=== PATIENT | female | born 1970 | race African-American/Black ===

== ENCOUNTER 2016-09-24 14:03 | Emergency (ER) | payer MEDICAID | END 2016-09-24 15:10 | disposition home or self-care (01) | LOC: D.ER 14:03 | DX: R53.1 Weakness (principal); F32.9 Major depressive disorder, single episode, unspecified; H40.9 Unspecified glaucoma; F17.200 Nicotine dependence, unspecified, uncomplicated ==

== ENCOUNTER 2017-06-29 00:11 | Emergency (ER) | payer MEDICAID ==
[2017-06-29 01:30] LABS: BASOPHILS 0.3 % (0-2); EOSINOPHILS 0.1 % (0-7); HEMATOCRIT 40.2 % (36.0-48.0); IMMATURE GRANULOCYTES 0.3 % (0-5); LYMPHOCYTES 18.5 % (15-50); MCH 28.7 pg (26.0-34.0); MCHC 34.8 g/dL (31.0-37.0); MCV 82.4 fL (80.0-100.0); MEAN PLATELET VOLUME 12.9 fL (7.4-10.4); MONOCYTES 7.5 % (2-11); NEUTROPHILS 73.3 % (40-80); PLATELET COUNT 158 10x3/uL (130-400); RBC 4.88 10x6/uL (4.00-5.40); RDW 14.1 % (11.5-14.5); WBC 7.6 10x3/uL (4.8-10.8)
[2017-06-29 01:52] LABS: ALBUMIN 3.2 g/dL (3.4-5.0); ALKALINE PHOSPHATASE 84 U/L (46-116); ALT (SGPT) 22 U/L (10-68); CALC OSMOLALITY 281 mosm/kg (275-300); CALCIUM 8.2 mg/dL (8.5-10.1); CARBON DIOXIDE 26.7 mmol/L (21.0-32.0); CHLORIDE - SERUM 106 mmol/L (98-107); CREATININE - SERUM 0.8 mg/dL (0.6-1.3); GLUCOSE 102 mg/dL (74-106); POTASSIUM - SERUM 3.2 mmol/L (3.5-5.1); PROTEIN - SERUM 7.2 g/dL (6.4-8.2); SODIUM 141 mmol/L (136-145); UREA NITROGEN 14 mg/dL (7-18); eGFR NON AFRICAN AMERICAN 82 mL/min (90-120)
[2017-06-29 01:52] LABS: APPEARANCE CLEAR (CLEAR); BILIRUBIN NEGATIVE (NEGATIVE); COLOR YELLOW (YELLOW); GLUCOSE NEGATIVE (NEGATIVE); KETONE NEGATIVE (NEGATIVE); NITRITE NEGATIVE (NEGATIVE); PROTEIN NEGATIVE (NEGATIVE); UROBILINOGEN NORMAL (NORMAL)
[2017-06-29 02:02] LABS: BACTERIA FEW /hpf (NONE SEEN); EPITHELIAL CELLS 0-5 /hpf (0-5); RED CELLS - URINE 0-5 /hpf (0-5); WHITE CELLS - URINE 0-5 /hpf (0-5)
[2017-06-29 02:05] LABS: CKMB 0.2 U/L (0.0-3.6); CREATINE KINASE 42 UL (21-215); MAGNESIUM - SERUM 1.7 mg/dL (1.8-2.4); TROPONIN-I < 0.017 ng/mL (0.000-0.060)
== END 2017-06-29 02:48 | disposition home or self-care (01) ==
LOC: D.ER 00:11
PROVIDERS: Family Medicine
DX: R42 Dizziness and giddiness (principal); E83.42 Hypomagnesemia; E87.6 Hypokalemia

== ENCOUNTER 2017-07-05 02:49 | Emergency (ER) | payer MEDICAID ==
[2017-07-05 03:31] LABS: BASOPHILS 0.1 % (0-2); EOSINOPHILS 0.1 % (0-7); HEMATOCRIT 40.9 % (36.0-48.0); HEMOGLOBIN 14.5 g/dL (12-16); IMMATURE GRANULOCYTES 0.3 % (0-5); LYMPHOCYTES 15.6 % (15-50); MCH 29.1 pg (26.0-34.0); MCHC 35.5 g/dL (31.0-37.0); MONOCYTES 6.5 % (2-11); NEUTROPHILS 77.4 % (40-80); PLATELET COUNT 179 10x3/uL (130-400); RBC 4.99 10x6/uL (4.00-5.40); RDW 14.4 % (11.5-14.5); WBC 7.3 10x3/uL (4.8-10.8)
[2017-07-05 03:39] LABS: ALBUMIN 3.2 g/dL (3.4-5.0); ALKALINE PHOSPHATASE 83 U/L (46-116); ALT (SGPT) 34 U/L (10-68); BILIRUBIN - TOTAL 0.22 mg/dL (0.2-1.3); CALC OSMOLALITY 276 mosm/kg (275-300); CALCIUM 8.2 mg/dL (8.5-10.1); CHLORIDE - SERUM 103 mmol/L (98-107); CREATININE - SERUM 0.7 mg/dL (0.6-1.3); GLUCOSE 107 mg/dL (74-106); POTASSIUM - SERUM 3.5 mmol/L (3.5-5.1); PROTEIN - SERUM 7.5 g/dL (6.4-8.2); SODIUM 140 mmol/L (136-145); UREA NITROGEN 7 mg/dL (7-18); eGFR NON AFRICAN AMERICAN > 90 mL/min (90-120)
[2017-07-05 03:41] LABS: MAGNESIUM - SERUM 1.9 mg/dL (1.8-2.4); PHENYTOIN (DILANTIN) 22.2 ug/mL (10.0-20.0)
== END 2017-07-05 04:40 | disposition home or self-care (01) ==
LOC: D.ER 02:49
PROVIDERS: Family Medicine
DX: T50.905A Adverse effect of unspecified drugs, medicaments and biological substances, initial encounter (principal); Y92.019 Unspecified place in single-family (private) house as the place of occurrence of the external cause; R42 Dizziness and giddiness; H40.9 Unspecified glaucoma; G40.909 Epilepsy, unspecified, not intractable, without status epilepticus; F17.200 Nicotine dependence, unspecified, uncomplicated

== ENCOUNTER 2018-02-24 21:15 | Emergency (ER) | payer MEDICAID ==
[~2018-02-24] VITALS: Ht 167.6 cm; Wt 49.9 kg
[2018-02-24 21:32] VITALS: Ht 167.6 cm; Wt 49.9 kg
[2018-02-24] MEDS ORDERED: DILANTIN100 MG PO (21:34)
[2018-02-24] MEDS ORDERED: ZONEGRAN100 MG PO (21:34)
[2018-02-24] MEDS ORDERED: TRILEPTAL600 MG PO (21:34)
[2018-02-24 21:57] LABS: BASOPHILS 0.5 % (0-2); EOSINOPHILS 0.5 % (0-7); HEMATOCRIT 40.9 % (36.0-48.0); HEMOGLOBIN 14.3 g/dL (12-16); IMMATURE GRANULOCYTES 0.2 % (0-5); LYMPHOCYTES 19.8 % (15-50); MCH 29.5 pg (26.0-34.0); MCV 84.5 fL (80.0-100.0); MONOCYTES 6.6 % (2-11); NEUTROPHILS 72.4 % (40-80); PLATELET COUNT 150 10x3/uL (130-400); RBC 4.84 10x6/uL (4.00-5.40); RDW 14.7 % (11.5-14.5); WBC 6.5 10x3/uL (4.8-10.8)
[2018-02-24 22:10] LABS: HCG SERUM NEGATIVE (NEGATIVE)
[2018-02-24 22:21] LABS: APPEARANCE CLEAR (CLEAR); BILIRUBIN NEGATIVE (NEGATIVE); COLOR YELLOW (YELLOW); GLUCOSE NEGATIVE (NEGATIVE); KETONE SMALL mg/dL (NEGATIVE); NITRITE NEGATIVE (NEGATIVE); PROTEIN NEGATIVE (NEGATIVE); SPECIFIC GRAVITY 1.025 (1.005-1.020); UROBILINOGEN NORMAL (NORMAL)
[2018-02-24 22:22] LABS: CALC OSMOLALITY 275 mosm/kg (275-300); CALCIUM 8.9 mg/dL (8.5-10.1); CARBON DIOXIDE 25.1 mmol/L (21.0-32.0); CHLORIDE - SERUM 100 mmol/L (98-107); CREATININE - SERUM 0.8 mg/dL (0.6-1.3); EPITHELIAL CELLS 0-5 /hpf (0-5); GLUCOSE 86 mg/dL (74-106); RED CELLS - URINE 0-5 /hpf (0-5); SODIUM 138 mmol/L (136-145); THYROID STIMULATING HORMONE 2.14 uIU/mL (0.36-3.74); UDS - AMPHET NEGATIVE QUAL (NEGATIVE); UDS - BARB NEGATIVE QUAL (NEGATIVE); UDS - BENZO NEGATIVE QUAL (NEGATIVE); UDS - COCAINE NEGATIVE QUAL (NEGATIVE); UDS - OPIATE NEGATIVE QUAL (NEGATIVE); UDS - PCP NEGATIVE QUAL (NEGATIVE); UDS - THC NEGATIVE QUAL (NEGATIVE); UREA NITROGEN 14 mg/dL (7-18); WHITE CELLS - URINE OCC /hpf (0-5); eGFR NON AFRICAN AMERICAN 82 mL/min (90-120)
[2018-02-24 23:10] VITALS: BP 135/80
== END 2018-02-24 23:09 | disposition home or self-care (01) ==
LOC: D.ER 21:15
PROVIDERS: Family Medicine
DX: F41.9 Anxiety disorder, unspecified (principal); E87.6 Hypokalemia; G40.909 Epilepsy, unspecified, not intractable, without status epilepticus

== ENCOUNTER 2018-04-02 20:44 | Emergency (ER) | payer MEDICAID ==
[~2018-04-02] VITALS: Ht 167.6 cm; Wt 55.0 kg
[~2018-04-02 20:44] MED LIST: DILANTIN100 MG PO; TRILEPTAL600 MG PO; ZONEGRAN100 MG PO
[2018-04-02 20:47] VITALS: Ht 167.6 cm; Wt 55.0 kg
[2018-04-02 21:14] LABS: BASOPHILS 0.3 % (0-2); EOSINOPHILS 1.5 % (0-7); HEMOGLOBIN 13.9 g/dL (12-16); IMMATURE GRANULOCYTES 0.2 % (0-5); LYMPHOCYTES 25.9 % (15-50); MCH 29.5 pg (26.0-34.0); MCHC 34.8 g/dL (31.0-37.0); MCV 84.9 fL (80.0-100.0); MEAN PLATELET VOLUME 12.9 fL (7.4-10.4); MONOCYTES 6.3 % (2-11); NEUTROPHILS 65.8 % (40-80); RBC 4.71 10x6/uL (4.00-5.40); WBC 6.6 10x3/uL (4.8-10.8)
[2018-04-02 21:31] LABS: ALBUMIN 3.5 g/dL (3.4-5.0); ALKALINE PHOSPHATASE 80 U/L (46-116); ALT (SGPT) 30 U/L (10-68); BILIRUBIN - TOTAL 0.16 mg/dL (0.2-1.3); CALC OSMOLALITY 277 mosm/kg (275-300); CALCIUM 8.5 mg/dL (8.5-10.1); CARBON DIOXIDE 23.8 mmol/L (21.0-32.0); CHLORIDE - SERUM 105 mmol/L (98-107); CREATININE - SERUM 0.8 mg/dL (0.6-1.3); GLUCOSE 91 mg/dL (74-106); POTASSIUM - SERUM 3.6 mmol/L (3.5-5.1); PROTEIN - SERUM 7.4 g/dL (6.4-8.2); SODIUM 140 mmol/L (136-145); UREA NITROGEN 9 mg/dL (7-18); eGFR NON AFRICAN AMERICAN 82 mL/min (90-120)
[2018-04-02 21:33] LABS: PLATELET COUNT 155 10x3/uL (130-400)
[2018-04-02 21:38] LABS: PROTIME 12.9 SECONDS (11.6-15.0)
[2018-04-02 21:39] LABS: APTT 22.9 SECONDS (22.8-39.4); INR 0.98 (0.85-1.17)
[2018-04-02 21:43] LABS: CKMB 0.8 U/L (0.0-3.6); CREATINE KINASE 47 UL (21-215); MAGNESIUM - SERUM 2.1 mg/dL (1.8-2.4); TROPONIN-I < 0.017 ng/mL (0.000-0.060)
[2018-04-02 22:48] LABS: APPEARANCE CLEAR (CLEAR); BILIRUBIN NEGATIVE (NEGATIVE); COLOR YELLOW (YELLOW); GLUCOSE NEGATIVE (NEGATIVE); KETONE NEGATIVE (NEGATIVE); NITRITE NEGATIVE (NEGATIVE); PROTEIN NEGATIVE (NEGATIVE); SPECIFIC GRAVITY 1.015 (1.005-1.020); UROBILINOGEN NORMAL (NORMAL)
[2018-04-02 22:59] LABS: UDS - AMPHET NEGATIVE QUAL (NEGATIVE); UDS - BARB NEGATIVE QUAL (NEGATIVE); UDS - BENZO NEGATIVE QUAL (NEGATIVE); UDS - COCAINE NEGATIVE QUAL (NEGATIVE); UDS - OPIATE NEGATIVE QUAL (NEGATIVE); UDS - PCP NEGATIVE QUAL (NEGATIVE); UDS - THC NEGATIVE QUAL (NEGATIVE)
[2018-04-02 23:05] VITALS: BP 140/85
== END 2018-04-02 23:05 | disposition home or self-care (01) ==
LOC: D.ER 20:44
PROVIDERS: Family Medicine
DX: R07.89 Other chest pain (principal); G40.909 Epilepsy, unspecified, not intractable, without status epilepticus

== ENCOUNTER 2018-05-09 11:16 | Emergency (ER) | payer MEDICAID ==
[~2018-05-09] VITALS: Ht 167.6 cm; Wt 55.5 kg
[2018-05-09 11:22] VITALS: Ht 167.6 cm; Wt 55.5 kg
[2018-05-09 14:40] LABS: BASOPHILS 0.4 % (0-2); EOSINOPHILS 1.1 % (0-7); HEMATOCRIT 44.1 % (36.0-48.0); HEMOGLOBIN 15.4 g/dL (12-16); IMMATURE GRANULOCYTES 0.3 % (0-5); LYMPHOCYTES 25.9 % (15-50); MCH 28.7 pg (26.0-34.0); MCHC 34.9 g/dL (31.0-37.0); MCV 82.3 fL (80.0-100.0); MONOCYTES 8.1 % (2-11); NEUTROPHILS 64.2 % (40-80); PLATELET COUNT 151 10x3/uL (130-400); RBC 5.36 10x6/uL (4.00-5.40); RDW 13.7 % (11.5-14.5); WBC 7.5 10x3/uL (4.8-10.8)
[2018-05-09] MEDS ORDERED: TEGRETOL200 MG PO (15:16)
[2018-05-09 15:56] LABS: ALBUMIN 3.6 g/dL (3.4-5.0); ALKALINE PHOSPHATASE 80 U/L (46-116); ALT (SGPT) 41 U/L (10-68); BILIRUBIN - TOTAL 0.23 mg/dL (0.2-1.3); CALC OSMOLALITY 260 mosm/kg (275-300); CALCIUM 8.1 mg/dL (8.5-10.1); CARBAMAZEPINE (TEGRETOL) 0.2 ug/mL (4.0-12.0); CARBON DIOXIDE 28.1 mmol/L (21.0-32.0); CHLORIDE - SERUM 99 mmol/L (98-107); CREATININE - SERUM 0.8 mg/dL (0.6-1.3); GLUCOSE 81 mg/dL (74-106); PHENYTOIN (DILANTIN) 26.4 ug/mL (10.0-20.0); PROTEIN - SERUM 7.3 g/dL (6.4-8.2); SODIUM 131 mmol/L (136-145); TROPONIN-I < 0.017 ng/mL (0.000-0.060); UREA NITROGEN 10 mg/dL (7-18); eGFR NON AFRICAN AMERICAN 82 mL/min (90-120)
[2018-05-09 18:13] VITALS: BP 141/93
== END 2018-05-09 17:57 | disposition home or self-care (01) ==
LOC: D.ER 11:16
PROVIDERS: Emergency Medicine
DX: R07.9 Chest pain, unspecified (principal); R42 Dizziness and giddiness; G40.909 Epilepsy, unspecified, not intractable, without status epilepticus; E87.6 Hypokalemia; E87.1 Hypo-osmolality and hyponatremia; E16.2 Hypoglycemia, unspecified; T42.0X6A Underdosing of hydantoin derivatives, initial encounter; Z91.138 Patient's unintentional underdosing of medication regimen for other reason; Y92.019 Unspecified place in single-family (private) house as the place of occurrence of the external cause

== ENCOUNTER 2018-05-11 23:15 | Emergency (ER) | payer MEDICAID ==
[~2018-05-11] VITALS: Ht 167.6 cm; Wt 59.1 kg
[~2018-05-11 23:15] MED LIST changes: +TEGRETOL200 MG PO
[2018-05-11 23:17] VITALS: Ht 167.6 cm; Wt 59.1 kg
[2018-05-12 00:56] LABS: HEMOGLOBIN 13.4 g/dL (12-16); LYMPHOCYTES 17.3 % (15-50); MCH 28.5 pg (26.0-34.0); MCHC 34.4 g/dL (31.0-37.0); MCV 82.8 fL (80.0-100.0); MEAN PLATELET VOLUME 12.9 fL (7.4-10.4); NEUTROPHILS 79.4 % (40-80); PLATELET COUNT 119 10x3/uL (130-400); RBC 4.71 10x6/uL (4.00-5.40); RDW 14.4 % (11.5-14.5); WBC 8.5 10x3/uL (4.8-10.8)
[2018-05-12 00:59] LABS: ALBUMIN 3.5 g/dL (3.4-5.0); ANION GAP 16.1 mmol/L (8-16); BILIRUBIN - TOTAL 0.15 mg/dL (0.2-1.3); CARBON DIOXIDE 24.6 mmol/L (21.0-32.0); CREATININE - SERUM 0.9 mg/dL (0.6-1.3); POTASSIUM - SERUM 3.7 mmol/L (3.5-5.1); PROTEIN - SERUM 7.6 g/dL (6.4-8.2)
[2018-05-12 01:09] LABS: APPEARANCE CLEAR (CLEAR); BILIRUBIN NEGATIVE (NEGATIVE); COLOR YELLOW (YELLOW); GLUCOSE NEGATIVE (NEGATIVE); KETONE NEGATIVE (NEGATIVE); NITRITE NEGATIVE (NEGATIVE); PROTEIN NEGATIVE (NEGATIVE); SPECIFIC GRAVITY 1.005 (1.005-1.020); UROBILINOGEN NORMAL (NORMAL)
[2018-05-12 01:10] LABS: BACTERIA FEW /hpf (NONE SEEN); EPITHELIAL CELLS 0-5 /hpf (0-5); RED CELLS - URINE 0-5 /hpf (0-5); WHITE CELLS - URINE 0-5 /hpf (0-5)
[2018-05-12] MEDS ORDERED: MECLIZINE HCL25 MG PO (02:09)
[2018-05-12] MEDS ORDERED: CYCLOBENZAPRINE10 MG PO (02:09)
[2018-05-12 02:43] VITALS: BP 130/83
== END 2018-05-12 02:43 | disposition home or self-care (01) ==
LOC: D.ER 23:15
PROVIDERS: Family Medicine
DX: R42 Dizziness and giddiness (principal); M62.838 Other muscle spasm; Z91.14 Patient's other noncompliance with medication regimen; G35 Multiple sclerosis; G40.909 Epilepsy, unspecified, not intractable, without status epilepticus

== ENCOUNTER 2018-05-27 00:22 | Emergency (ER) | payer MEDICAID ==
[~2018-05-27] VITALS: Ht 167.6 cm; Wt 65.9 kg
[~2018-05-27 00:22] MED LIST changes: +CYCLOBENZAPRINE10 MG PO; +MECLIZINE HCL25 MG PO
[2018-05-27 00:26] VITALS: Ht 167.6 cm; Wt 65.9 kg
[2018-05-27 01:03] LABS: HEMATOCRIT 39.2 % (36.0-48.0); HEMOGLOBIN 13.3 g/dL (12-16); LYMPHOCYTES 17.2 % (15-50); MCH 28.7 pg (26.0-34.0); MCHC 33.9 g/dL (31.0-37.0); MCV 84.5 fL (80.0-100.0); MEAN PLATELET VOLUME 12.3 fL (7.4-10.4); NEUTROPHILS 77.2 % (40-80); PLATELET COUNT 166 10x3/uL (130-400); RBC 4.64 10x6/uL (4.00-5.40); RDW 14.8 % (11.5-14.5)
[2018-05-27 01:18] LABS: ALKALINE PHOSPHATASE 83 U/L (46-116); ALT (SGPT) 69 U/L (10-68); BILIRUBIN - TOTAL 0.11 mg/dL (0.2-1.3); CALC OSMOLALITY 279 mosm/kg (275-300); CARBON DIOXIDE 24.7 mmol/L (21.0-32.0); CHLORIDE - SERUM 106 mmol/L (98-107); CREATINE KINASE 57 UL (21-215); CREATININE - SERUM 0.8 mg/dL (0.6-1.3); GLUCOSE 87 mg/dL (74-106); POTASSIUM - SERUM 3.7 mmol/L (3.5-5.1); SODIUM 142 mmol/L (136-145); UREA NITROGEN 8 mg/dL (7-18); eGFR NON AFRICAN AMERICAN 82 mL/min (90-120)
[2018-05-27 01:41] LABS: APPEARANCE CLEAR (CLEAR); BILIRUBIN NEGATIVE (NEGATIVE); COLOR YELLOW (YELLOW); GLUCOSE NEGATIVE (NEGATIVE); HCG URINE NEGATIVE (NEGATIVE); KETONE NEGATIVE (NEGATIVE); NITRITE NEGATIVE (NEGATIVE); PROTEIN NEGATIVE (NEGATIVE); UROBILINOGEN NORMAL (NORMAL)
[2018-05-27 01:50] LABS: UDS - AMPHET NEGATIVE QUAL (NEGATIVE); UDS - BARB NEGATIVE QUAL (NEGATIVE); UDS - BENZO NEGATIVE QUAL (NEGATIVE); UDS - COCAINE NEGATIVE QUAL (NEGATIVE); UDS - OPIATE NEGATIVE QUAL (NEGATIVE); UDS - PCP NEGATIVE QUAL (NEGATIVE); UDS - THC NEGATIVE QUAL (NEGATIVE)
[2018-05-27] MEDS ORDERED: DILANTIN100 MG PO (02:18)
[2018-05-27] MEDS ORDERED: TRILEPTAL600 MG PO (02:18)
[2018-05-27 03:14] VITALS: BP 132/76
== END 2018-05-27 03:14 | disposition home or self-care (01) ==
LOC: D.ER 00:22
PROVIDERS: Family Medicine
DX: G40.909 Epilepsy, unspecified, not intractable, without status epilepticus (principal)

== ENCOUNTER 2018-07-03 00:17 | Emergency (ER) | payer MEDICAID ==
[2018-07-03] MEDS ORDERED: VITAMIN D3400 UNI1 PO (00:26)
[2018-07-03 01:01] LABS: BASOPHILS 0.2 % (0-2); EOSINOPHILS 2.7 % (0-7); HEMATOCRIT 36.6 % (36.0-48.0); HEMOGLOBIN 12.6 g/dL (12-16); IMMATURE GRANULOCYTES 0.3 % (0-5); LYMPHOCYTES 19.2 % (15-50); MCH 28.4 pg (26.0-34.0); MCHC 34.4 g/dL (31.0-37.0); MCV 82.6 fL (80.0-100.0); MEAN PLATELET VOLUME 11.7 fL (7.4-10.4); MONOCYTES 7.5 % (2-11); NEUTROPHILS 70.1 % (40-80); PLATELET COUNT 143 10x3/uL (130-400); RBC 4.43 10x6/uL (4.00-5.40); RDW 15.7 % (11.5-14.5); WBC 5.9 10x3/uL (4.8-10.8)
[2018-07-03 01:06] LABS: ALBUMIN 3.1 g/dL (3.4-5.0); ALKALINE PHOSPHATASE 81 U/L (46-116); ALT (SGPT) 41 U/L (10-68); CALC OSMOLALITY 276 mosm/kg (275-300); CALCIUM 8.2 mg/dL (8.5-10.1); CARBON DIOXIDE 24.2 mmol/L (21.0-32.0); CHLORIDE - SERUM 106 mmol/L (98-107); CREATININE - SERUM 0.8 mg/dL (0.6-1.3); GLUCOSE 100 mg/dL (74-106); MAGNESIUM - SERUM 1.8 mg/dL (1.8-2.4); PHENYTOIN (DILANTIN) 14.4 ug/mL (10.0-20.0); POTASSIUM - SERUM 3.5 mmol/L (3.5-5.1); SODIUM 139 mmol/L (136-145); UREA NITROGEN 10 mg/dL (7-18); eGFR NON AFRICAN AMERICAN 82 mL/min (90-120)
== END 2018-07-03 02:55 | disposition home or self-care (01) ==
LOC: D.ER 00:17
PROVIDERS: Emergency Medicine
DX: G40.909 Epilepsy, unspecified, not intractable, without status epilepticus (principal)

== ENCOUNTER 2018-07-29 23:59 | Emergency (ER) | payer MEDICAID ==
[~2018-07-29 23:59] MED LIST changes: +VITAMIN D3400 UNI1 PO
[2018-07-30 00:01] VITALS: BMI 19.4
[2018-07-30] MEDS ORDERED: K-DUR20 MEQ PO (00:02)
[2018-07-30] MEDS ORDERED: PROPRANOLOL HCL20 MG PO (00:02)
[2018-07-30] MEDS ORDERED: FERROUS SULFAT325 MG PO (00:02)
[2018-07-30] MEDS ORDERED: MECLIZINE HCL25 MG PO (00:03)
[2018-07-30 00:16] LABS: BASOPHILS 0.4 % (0-2); EOSINOPHILS 3.4 % (0-7); HEMATOCRIT 39.9 % (36.0-48.0); HEMOGLOBIN 13.8 g/dL (12-16); IMMATURE GRANULOCYTES 0.4 % (0-5); LYMPHOCYTES 19.3 % (15-50); MCH 28.9 pg (26.0-34.0); MCHC 34.6 g/dL (31.0-37.0); MCV 83.5 fL (80.0-100.0); MONOCYTES 6.9 % (2-11); NEUTROPHILS 69.6 % (40-80); RBC 4.78 10x6/uL (4.00-5.40); RDW 14.5 % (11.5-14.5); WBC 5.3 10x3/uL (4.8-10.8)
[2018-07-30 00:17] LABS: PLATELET COUNT 102 10x3/uL (130-400)
[2018-07-30 00:33] LABS: ALBUMIN 3.4 g/dL (3.4-5.0); ANION GAP 17.8 mmol/L (8-16); BILIRUBIN - TOTAL 0.12 mg/dL (0.2-1.3); CALCIUM 8.2 mg/dL (8.5-10.1); CARBON DIOXIDE 20.6 mmol/L (21.0-32.0); CREATININE - SERUM 0.9 mg/dL (0.6-1.3); POTASSIUM - SERUM 3.4 mmol/L (3.5-5.1); PROTEIN - SERUM 7.5 g/dL (6.4-8.2)
[2018-07-30 00:46] LABS: PHENYTOIN (DILANTIN) 23.2 ug/mL (10.0-20.0)
[2018-07-30 03:00] VITALS: BP 142/87
== END 2018-07-30 03:00 | disposition home or self-care (01) ==
LOC: D.ER 23:59
PROVIDERS: Family Medicine
DX: G40.909 Epilepsy, unspecified, not intractable, without status epilepticus (principal)

== ENCOUNTER 2018-12-22 23:32 | Emergency (ER) | payer MEDICAID ==
[~2018-12-22] VITALS: Ht 167.6 cm; Wt 49.9 kg
[~2018-12-22 23:32] MED LIST changes: +FERROUS SULFAT325 MG PO; +K-DUR20 MEQ PO; +PROPRANOLOL HCL20 MG PO
[2018-12-22 23:38] VITALS: Ht 167.6 cm; Wt 49.9 kg
[2018-12-22 23:56] LABS: HEMATOCRIT 42.3 % (36.0-48.0); HEMOGLOBIN 14.6 g/dL (12-16); LYMPHOCYTES 19.2 % (15-50); MCH 29.2 pg (26.0-34.0); MCHC 34.5 g/dL (31.0-37.0); MCV 84.6 fL (80.0-100.0); MEAN PLATELET VOLUME 12.9 fL (7.4-10.4); NEUTROPHILS 72.7 % (40-80); RDW 14.3 % (11.5-14.5); WBC 6.3 10x3/uL (4.8-10.8)
[2018-12-22 23:57] LABS: PLATELET COUNT 144 10x3/uL (130-400)
[2018-12-23 00:17] LABS: BILIRUBIN - TOTAL 0.21 mg/dL (0.2-1.3); CALCIUM 8.7 mg/dL (8.5-10.1); CARBON DIOXIDE 29.7 mmol/L (21.0-32.0); CREATININE - SERUM 0.9 mg/dL (0.6-1.3); POTASSIUM - SERUM 3.7 mmol/L (3.5-5.1); PROTEIN - SERUM 8.4 g/dL (6.4-8.2)
[2018-12-23 00:35] LABS: UDS - AMPHET NEGATIVE QUAL (NEGATIVE); UDS - BARB NEGATIVE QUAL (NEGATIVE); UDS - BENZO NEGATIVE QUAL (NEGATIVE); UDS - COCAINE NEGATIVE QUAL (NEGATIVE); UDS - OPIATE NEGATIVE QUAL (NEGATIVE); UDS - PCP NEGATIVE QUAL (NEGATIVE); UDS - THC NEGATIVE QUAL (NEGATIVE)
[2018-12-23 00:39] LABS: APPEARANCE CLOUDY (CLEAR); COLOR YELLOW (YELLOW)
[2018-12-23 00:40] LABS: BILIRUBIN NEGATIVE (NEGATIVE); GLUCOSE NEGATIVE (NEGATIVE); KETONE NEGATIVE (NEGATIVE); NITRITE NEGATIVE (NEGATIVE); PROTEIN 1+ mg/dL (NEGATIVE); UROBILINOGEN NORMAL (NORMAL)
[2018-12-23 00:48] LABS: EPITHELIAL CELLS 0-5 /hpf (0-5); RED CELLS - URINE 0-5 /hpf (0-5); WHITE CELLS - URINE 0-5 /hpf (NEGATIVE)
[2018-12-23 00:49] LABS: AMORPHOUS SEDIMENT <1+ /lpf (NONE SEEN); BACTERIA FEW /hpf (NEGATIVE); MUCUS <1+ /lpf (NONE SEEN); TALC POWDER CRYSTALS 0-5 /hpf (NONE SEEN)
[2018-12-23 01:30] VITALS: BP 151/89
== END 2018-12-23 01:30 | disposition home or self-care (01) ==
LOC: D.ER 23:32
PROVIDERS: Family Medicine
DX: F22 Delusional disorders (principal)

== ENCOUNTER 2018-12-24 14:21 | Emergency (ER) | payer MEDICAID ==
[~2018-12-24] VITALS: Ht 167.6 cm; Wt 47.7 kg
[2018-12-24 14:28] VITALS: Ht 167.6 cm; Wt 47.7 kg
[2018-12-24 15:32] LABS: BASOPHILS 0.3 % (0-2); EOSINOPHILS 0.9 % (0-7); HEMATOCRIT 45.5 % (36.0-48.0); HEMOGLOBIN 15.6 g/dL (12-16); IMMATURE GRANULOCYTES 0.1 % (0-5); LYMPHOCYTES 10.7 % (15-50); MCH 29.2 pg (26.0-34.0); MCHC 34.3 g/dL (31.0-37.0); MCV 85.2 fL (80.0-100.0); MONOCYTES 5.4 % (2-11); NEUTROPHILS 82.6 % (40-80); PLATELET COUNT 121 10x3/uL (130-400); RBC 5.34 10x6/uL (4.00-5.40); RDW 13.9 % (11.5-14.5); WBC 7.8 10x3/uL (4.8-10.8)
[2018-12-24 15:41] LABS: APTT 23.3 SECONDS (22.8-39.4); INR 0.91 (0.85-1.17); PROTIME 11.8 SECONDS (11.6-15.0)
[2018-12-24 16:43] LABS: APPEARANCE CLEAR (CLEAR); BILIRUBIN NEGATIVE (NEGATIVE); COLOR YELLOW (YELLOW); GLUCOSE NEGATIVE (NEGATIVE); KETONE NEGATIVE (NEGATIVE); NITRITE NEGATIVE (NEGATIVE); PROTEIN NEGATIVE (NEGATIVE); SPECIFIC GRAVITY 1.015 (1.005-1.020); UROBILINOGEN NORMAL (NORMAL)
[2018-12-24 16:45] LABS: BACTERIA FEW /hpf (NEGATIVE); RED CELLS - URINE RARE /hpf (0-5); WHITE CELLS - URINE OCC /hpf (NEGATIVE)
[2018-12-24 16:50] LABS: ALBUMIN 4.3 g/dL (3.4-5.0); ALKALINE PHOSPHATASE 105 U/L (46-116); ALT (SGPT) 28 U/L (10-68); BILIRUBIN - TOTAL 0.23 mg/dL (0.2-1.3); CALCIUM 9.1 mg/dL (8.5-10.1); CARBON DIOXIDE 29.2 mmol/L (21.0-32.0); CHLORIDE - SERUM 104 mmol/L (98-107); CREATININE - SERUM 0.8 mg/dL (0.6-1.3); POTASSIUM - SERUM 3.3 mmol/L (3.5-5.1); PROTEIN - SERUM 8.6 g/dL (6.4-8.2); SODIUM 144 mmol/L (136-145); eGFR NON AFRICAN AMERICAN 82 mL/min (90-120)
[2018-12-24 16:53] LABS: CALC OSMOLALITY 283 mosm/kg (275-300); GLUCOSE 85 mg/dL (74-106); UREA NITROGEN 7 mg/dL (7-18)
[2018-12-24 17:02] LABS: CKMB 0.4 U/L (0.0-3.6); CREATINE KINASE 83 UL (21-215); MAGNESIUM - SERUM 2.1 mg/dL (1.8-2.4); THYROID STIMULATING HORMONE 1.23 uIU/mL (0.36-3.74); TROPONIN-I < 0.017 ng/mL (0.000-0.060)
[2018-12-24 17:06] LABS: UDS - AMPHET NEGATIVE QUAL (NEGATIVE); UDS - BARB NEGATIVE QUAL (NEGATIVE); UDS - BENZO NEGATIVE QUAL (NEGATIVE); UDS - COCAINE NEGATIVE QUAL (NEGATIVE); UDS - OPIATE NEGATIVE QUAL (NEGATIVE); UDS - PCP NEGATIVE QUAL (NEGATIVE); UDS - THC NEGATIVE QUAL (NEGATIVE)
[2018-12-24 20:28] VITALS: BP 135/78
== END 2018-12-24 20:28 | disposition home or self-care (01) ==
LOC: D.ER 14:21
PROVIDERS: Family Medicine
DX: R41.82 Altered mental status, unspecified (principal); I10 Essential (primary) hypertension; N19 Unspecified kidney failure

== ENCOUNTER 2018-12-25 02:59 | Inpatient (IN) | payer MEDICAID ==
[~2018-12-25] VITALS: Ht 167.6 cm; Wt 70.5 kg
[2018-12-25] VITALS (9 sets, daily range): BP systolic 136–171; BP diastolic 72–102; Ht 167.6 cm; Wt 70.5 kg
[2018-12-25 03:20] LABS: BASOPHILS 0.1 % (0-2); EOSINOPHILS 0.2 % (0-7); HEMATOCRIT 44.1 % (36.0-48.0); HEMOGLOBIN 15.3 g/dL (12-16); IMMATURE GRANULOCYTES 0.2 % (0-5); LYMPHOCYTES 6.9 % (15-50); MCH 29.5 pg (26.0-34.0); MCHC 34.7 g/dL (31.0-37.0); MONOCYTES 5.5 % (2-11); NEUTROPHILS 87.1 % (40-80); RBC 5.19 10x6/uL (4.00-5.40); RDW 13.5 % (11.5-14.5)
[2018-12-25 03:21] LABS: PLATELET COUNT 149 10x3/uL (130-400); WBC 10.2 10x3/uL (4.8-10.8)
--- NOTE | 2018-12-25 03:35 | NUR ---
PT ASSISTED WITH BEDPAN. URINE SPECIMEN TAKEN TO LAB.
[2018-12-25 03:41] LABS: ALBUMIN 4.1 g/dL (3.4-5.0); ANION GAP 13.6 mmol/L (8-16); BILIRUBIN - TOTAL 0.23 mg/dL (0.2-1.3); CALCIUM 8.3 mg/dL (8.5-10.1); CARBON DIOXIDE 25.9 mmol/L (21.0-32.0); CREATININE - SERUM 0.9 mg/dL (0.6-1.3); POTASSIUM - SERUM 3.5 mmol/L (3.5-5.1); PROTEIN - SERUM 8.3 g/dL (6.4-8.2)
[2018-12-25 03:42] LABS: MAGNESIUM - SERUM 2.1 mg/dL (1.8-2.4); PHENYTOIN (DILANTIN) 32.3 ug/mL (10.0-20.0); THYROID STIMULATING HORMONE 1.91 uIU/mL (0.36-3.74)
[2018-12-25 03:58] LABS: APPEARANCE CLEAR (CLEAR); BILIRUBIN NEGATIVE (NEGATIVE); COLOR YELLOW (YELLOW); GLUCOSE NEGATIVE (NEGATIVE); KETONE NEGATIVE (NEGATIVE); NITRITE NEGATIVE (NEGATIVE); PROTEIN NEGATIVE (NEGATIVE); SPECIFIC GRAVITY 1.005 (1.005-1.020); UROBILINOGEN NORMAL (NORMAL); WHITE CELLS - URINE 0-5 /hpf (NEGATIVE)
[2018-12-25 04:06] LABS: UDS - AMPHET NEGATIVE QUAL (NEGATIVE); UDS - BARB NEGATIVE QUAL (NEGATIVE); UDS - BENZO NEGATIVE QUAL (NEGATIVE); UDS - COCAINE NEGATIVE QUAL (NEGATIVE); UDS - OPIATE NEGATIVE QUAL (NEGATIVE); UDS - PCP NEGATIVE QUAL (NEGATIVE); UDS - THC NEGATIVE QUAL (NEGATIVE)
--- NOTE | 2018-12-25 04:15 | NUR ---
pt arrived on unit via stretcher accompanied by er staff - pt lethargic, answers some questions, unable to recall names of most medications on med rec, claims she accidentally took 4 dilantin after 2300 - thought she didn't take them but she had. denies wanting to harm self or others at any time. denies pain. nystagmus noted. sinus tach at this time palpalble mass llq and midline abdomen. abdomen flat, no reported tenderness, no noticeable guarding. pt flaling arms up. admission assessment completed see flowsheet
--- NOTE | 2018-12-25 05:37 | NUR ---
PT REQUESTING BATHROOM, PROVIDED WITH BEDPAN - 800 CC URINE NOTED AT THIS TIME, YELLOW CLEAR. PT ASKING IF SHE CAN GO HOME "iM GOOD NOW I CAN SEE" NYSTAGMUS IS GONE - PUPILS PERRLA PT AAO X4 - STUTTERING
--- NOTE | 2018-12-25 07:10 | NUR ---
SHIFT REPOR RECEIVED. AA&OX3. ON ROOM AIR. 20G PIV ON LEFT FOREARM WITH NS AT 125ML/HR. DENIES HAVING PAIN AT THIS TIME. HAS DIFFICULTY EXPRESSING SELF WITH WORDS. STATES THAT SHE FORGETS WHAT SHE IS TRYING TO SAY. SAFETY MEASURES IN PLACE. CALL LIGHT PLACE IN REACH. SHOWED PT HOW TO USE IT. WILL CONTINUE OT MONITOR.
--- NOTE | 2018-12-25 08:00 | NUR ---
BED MERAZ PROVIDED. VOIDED ABOUT 800ML OF YELLOW URINE. LARGE, DARK GREEN FORMED STOOL NOTED AT THIS TIME. PERICARE PROVIDED. WILL CONTINUE TO MONITOR.
--- NOTE | 2018-12-25 10:40 | NUR ---
POISON CONTROL NOTIFIED OF OVERSODE. SPOKE WITH . RECOMMENDED TO CHECK PHENYTOIN LEVELS Q4HR, CHECK ACETAMINOPHEN AND ASPIRIN LEVELS.
--- NOTE | 2018-12-25 10:45 | NUR ---
BED MERAZ PROVIDED. VOIDED ABOUT 600ML OF CLEAR YELLOW URINE.
--- NOTE | 2018-12-25 11:05 | NUR ---
DR. KEANE AT BEDSIDE. DOES NOT NEED SITTER AT THIS TIME. PT MAY NEED HELP WITH TAKING MEDICATIONS AT HOME.
--- NOTE | 2018-12-25 11:24 | NUR ---
CALLED DR. MAURER TO VERIFY THAT HE WAS AWARE OF PATIENT ARRIVAL. STATED THAT DR. FITZPATRICK WILL SEEING PATIENT TODAY.
--- NOTE | 2018-12-25 12:50 | NUR ---
DR. FITZPATRICK IN UNIT. WANTS TO KEEP PT ONE FOR DAY. ASKED IF HE WANTED PHENYTOIN LEVELS CHECKED Q 4. HE STATED NOT AT THIS TIME.
--- NOTE | 2018-12-25 12:54 | NUR ---
SITTING UP IN BED EATING LUNCH.
--- NOTE | 2018-12-25 14:43 | NUR ---
PT HAS TRANSFERRED ORDERS. WILL BE TRANSFERRED TO ROOM 210. REPORT GIVEN TO LYNDSAY GARCIA.
--- NOTE | 2018-12-25 14:46 | NUR ---
SHIRLEY DICKENS NOTIFIED THAT PT WILL BE TRANSFERRED TO ROOM 2108.
--- NOTE | 2018-12-25 15:13 | NUR ---
PATIENT RECEIVED TO ROOM 2109 VIA WHEELCHAIR FROM ICU. PATIENT ALERT AND ABLE TO ANSWER MOST QUESTIONS APPROPRIATELY. PATIENT IS FIXATED ON A CROSS THAT EXPLODED, NOT SURE WHAT SHE IS REFERRING TO. IV FLUIDS INFUSING ORDERED. TELEMETRY APPLIED. CALL LIGHT WITHIN REACH. NO DISTRESS. SR UP FOR SAFETY.
--- NOTE | 2018-12-25 15:33 | NUR ---
CALL RECEIVED FROM POISON CONTROL. NOTIFIED THEM THAT PT WAS TRANSFERRED TO FLOOR.
--- NOTE | 2018-12-25 18:12 | NUR ---
PATIENT RESTING IN BED. EYES CLOSED. EASILY AROUSED. IV FLUIDS INFUSING ORDERED. PATIENT IS NOTED TO BE MORE EASILY UNDERSTOOD WHEN SHE JUST WAKES UP OPPOSED TO BEING AWAKE FOR A WHILE. PATIENT IS HAS EASIER TIME FORMING WORDS AND ANSWERING QUESTIONS. CALL LIGHT WITHIN REACH. NO DISTRESS.
--- NOTE | 2018-12-25 19:29 | NUR ---
RECIEVED BEDSIDE REPORT FORM JOSE THOMPSON. PT RESTING IN BED ALERT BUT CONFUSED. INAPROPRIATE RESPONSE TO QUESTIONS. HAS DELAYED OR DIFFICULT TIME FINDING WORDS TO DESCRIBE. PT RR EVEN AND UNLABORED. NO S/S OF DISTRESS. VITALS STABLE. BED LOW CALL LIGHT WITHIN REACH. WILL CONTINUE TO MONITOR.
[2018-12-26] VITALS: BP 135/84
--- NOTE | 2018-12-26 03:28 | NUR ---
PT RESTING IN BED WITH EYES CLOSED RR EVEN AND UNLABORED. NO S/S OF DISTRESS AT THIS TIME. BED LOW CALL LIGHT WITHIN REACH. WILL CONTINUE TO MONITOR.
--- NOTE | 2018-12-26 03:51 | NUR ---
I have reviewed this patient and I concur with the Shift Assessment completed by the Licensed Practical Nurse today this shift.
[2018-12-26 04:00] VITALS: BP 132/81
[2018-12-26 04:58] LABS: CALCIUM 7.9 mg/dL (8.5-10.1); CARBON DIOXIDE 24.9 mmol/L (21.0-32.0); CHLORIDE - SERUM 109 mmol/L (98-107); POTASSIUM - SERUM 3.8 mmol/L (3.5-5.1); SODIUM 142 mmol/L (136-145)
[2018-12-26 04:59] LABS: CALC OSMOLALITY 278 mosm/kg (275-300); CREATININE - SERUM 0.6 mg/dL (0.6-1.3); GLUCOSE 77 mg/dL (74-106); UREA NITROGEN 4 mg/dL (7-18); eGFR NON AFRICAN AMERICAN > 90 mL/min (90-120)
[2018-12-26 05:14] LABS: BASOPHILS 0.3 % (0-2); EOSINOPHILS 2.6 % (0-7); HEMATOCRIT 39.5 % (36.0-48.0); HEMOGLOBIN 13.6 g/dL (12-16); IMMATURE GRANULOCYTES 0.3 % (0-5); LYMPHOCYTES 33.2 % (15-50); MCHC 34.4 g/dL (31.0-37.0); MCV 84.2 fL (80.0-100.0); MONOCYTES 8.7 % (2-11); NEUTROPHILS 54.9 % (40-80); RBC 4.69 10x6/uL (4.00-5.40); RDW 13.7 % (11.5-14.5)
[2018-12-26 05:16] LABS: PLATELET COUNT 117 10x3/uL (130-400); WBC 3.1 10x3/uL (4.8-10.8)
[2018-12-26 09:28] VITALS: BP 154/98
[2018-12-26 11:06] VITALS: BP 164/97
--- NOTE | 2018-12-26 14:57 | NUR ---
I have reviewed this patient and I concur with the Shift Assessment completed by the Licensed Practical Nurse today this shift.
--- NOTE | 2018-12-26 15:02 | CN ---
PATIENT NAME:MELISSA DICKENS MEDICAL RECORD: [id number] : 74 LOCATION:D.Sabrina D.2109 ADMIT DATE: 12/25/18 ACCOUNT: [id number] CONSULTING PHYSICIAN: ARACELY KEANE MD REFERRING PHYSICIAN: DAX MAURER DO DATE OF CONSULTATION: 12/25/2018 IDENTIFYING DATA: The patient is 48 years old and she is admitted to the hospital secondary to Dilantin overdose. CHIEF COMPLAINT: None. HISTORY OF PRESENT ILLNESS: The patient is handicapped and lives with her mother. She has a seizure disorder. One of the medication she takes is Dilantin. She apparently took too much of the Dilantin, but not in an attempt to harm herself. She has a mildly toxic Dilantin level of 31 in the Emergency Room and there is no evidence that she took this overdose in a deliberate way with any intention of harming herself. She has denied to multiple individuals that she intended to do so. She endorses a lot of neurovegetative depressive symptoms, but then denies that she is depressed. She certainly has no active thoughts of harming herself or others and no overt psychotic symptoms. 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 ASSESSMENT: Dilantin toxicity secondary to accidental overdose. PLAN: At this time, the patient does not require a sitter and does not require further inpatient or outpatient psychiatric care. I do think it would be reasonable to try her on a low dose of a SSRI as I think she does have some depressive symptoms. Regarding the issue of intentional overdose or intent to harm herself, I think I can answer definitively that that was not the case in this situation. There is a larger overriding issue and that has to do with her home environment and supervision. I am not entirely sure that it is acceptable, the mother is not here right now, this may just simply be an isolated event, but I do not know that. Social service is looking into the case to make sure Melissa is in a safe and appropriately supervised environment would be a recommendation. TRANSINT:[id number] Voice Confirmation ID: [id number] DOCUMENT ID: [id number] ARACELY KEANE MD at 1502 CC: [id number] DICTATION DATE: 12/25/18 1130 PERSONAL SERVICE WORKERS: 12/25/18 1511 ADM IN [facility] [address] [id number]
[2018-12-26 15:05] VITALS: BP 156/83
--- NOTE | 2018-12-26 17:00 | MORECARE ---
CASE MANAGEMENT DISCHARGE SUMMARY PATIENT: MELISSA DICKENS UNIT: [id number] ADM DATE: 12/25/18 AGE: 48 : 74 SEX: F ROOM/BED: D.2106 AUTHOR: MARILYN BURRELL PHYSICIAN: REFERRING PHYSICIAN: DAX MAURER DO DATE OF SERVICE: 12/26/18 Discharge Plan Patient Name: MELISSA DICKENS [facility] [facility] 1970 Planned Disposition: Home Anticipated Discharge Date: 12/26/18 Discharge Date: Expected LOS: 1 Initial Reviewer: [email or web address] Initial Review Date: 12/26/2018 Generated: 12/26/18 6:00 pm DCPIA - Discharge Planning Initial Assessment Updated by [email or web address]: Keo Mauricio on 12/26/18 4:57 pm * Is the patient Alert and Oriented? Yes * How many steps to enter\exit or inside your home? 2-3` * PCP NEW PRIMARY CARE PHYSICIAN, [place] * Pharmacy PHARMACY IN [place] * Preadmission Environment Home with Family * ADLs Independent * Equipment None * Other Equipment NO MEDICAL EQUIPMENT PROVIDER PREFERNCE * List name and contact numbers for known caregivers / representatives who currently or will assist patient after discharge: SHIRLEY DICKENS, MOTHER, * Verbal permission to speak to the caregivers and representatives has been obtained from the patient. N/A * Community resources currently utilized None * Please name any agencies selected above. NONE * Additional services required to return to the preadmission environment? No * Can the patient safely return to the preadmission environment? Yes * Has this patient been hospitalized within the prior 30 days at any hospital? No Patient Name: MELISSA DICKENS Page [id number] at 1700 All edits/amendments must be made on the electronic document DICTATION DATE: 12/26/181699 NUTRITION PROGRAM INSTRUCTOR: HOLLEY 12/26/181699 RPT#: [id number] DC DATE: STATUS: ADM IN [facility] [address] [place] [address] END OF REPORT
--- NOTE | 2018-12-26 17:09 | MORECARE ---
CASE MANAGEMENT DISCHARGE SUMMARY PATIENT: MELISSA DICKENS UNIT: [id number] ADM DATE: 12/25/18 AGE: 48 : 74 SEX: F ROOM/BED: D.2108 AUTHOR: MARILYN BURRELL PHYSICIAN: REFERRING PHYSICIAN: DAX MAURER DO DATE OF SERVICE: 12/26/18 Discharge Plan Patient Name: MELISSA DICKENS Facility: [facility]:[place] : 1970 Planned Disposition: Home Anticipated Discharge Date: 12/26/18 Discharge Date: Expected LOS: 1 Initial Reviewer: [email or web address] Initial Review Date: 12/26/2018 Generated: 12/26/18 6:09 pm Comments DCP- Discharge Planning Updated by [email or web address]: Keo Mauricio on 12/26/18 4:[address] Patient Name: MELISSA DICKENS Encounter No: [id number] : 1970 Primary Insurance: MEDICAID [place] Anticipated DC Date: 12-26-2018 Planned Disposition: Home DISCHARGE PLANNING NOTE: CM MET WITH PT IN ROOM TO DISCUSS DISCHARGE PLANNING AND NEEDS. PT REPORTS LIVING AT HOME INDEPENDENTLY WITH HER MOTHER. PT HAS NO MEDICAL EQUIPMENT AND NO OUTSIDE SERVICES ASSISTING IN THE HOME. CM DISCUSSED AVAILABILITY OF HOME HEALTH, REHAB SERVICES AND MEDICAL EQUIPMENT. PT DENIES DISCHARGE NEEDS, REPORTS HER MOTHER WILL PICK HER UP FOR DISCHARGE HOME. CM DISCUSSED THE DOCTORS CONCERN OF PT'S LIVING SITUATION AND SUPERVISION AT HOME. PT REPORTS SHE IS SAFE AT HOME WITH HER MOTHER AND PT MANAGES HER OWN MEDICATIONS AND DENIES HAVING ISSUES UNTIL NOW. CM ASKED WHAT HAPPENED THIS TIME, PT MADE SOME THROAT VERBALIZATONS OVER AND OVER BUT DID NOT ANSWER THE QUESTION. CM ASKED AGAIN, PT SHOOK HER HEAD NO. CM ASKED IF SHE WANTED TO TALK ABOUT IT, PT STATES NO. PT STATES SHE IS GOING HOME AND HER MOTHER IS PICKING HER UP. CM EXPLAINED WHAT ADULT PROTECTIVE SERVICES DOES AND THAT CM WILL BE CALLING THE AGENCY TO CHECK ON HER AT HOME TO MAKE SURE SHE IS CARED FOR AND SAFE. PT REPORTS UNDERSTANDING. PT DENIES NEEDS. CM CALLDED ADULT PROTECTIVE SERVICES, , PROVIDED ALLEGATIONS OF PT HAVING SEIZURE DISORDER AND MAY HAVE MILD MENTAL RETARDATION WITH THE DOCTOR BEING CONCERNED ABOUT PT HAVING SUPERVISION AND SAFE ENVIRONMENT AT HOME. REPORT TAKEN, REFERENCE #[id number]. APS MAY OR MAY NOT INVESTIGATE. Keo Mauricio, CASE MANAGEMENT DCPIA - Discharge Planning Initial Assessment Updated by [email or web address]: Keo Mauricio on 12/26/18 4:57 pm * Is the patient Alert and Oriented? Yes * How many steps to enter\exit or inside your home? 2-3` * PCP NEW PRIMARY CARE PHYSICIAN, [place] * Pharmacy PHARMACY IN [place] * Preadmission Environment Home with Family * ADLs Independent * Equipment None * Other Equipment NO MEDICAL EQUIPMENT PROVIDER PREFERNCE * List name and contact numbers for known caregivers / representatives who currently or will assist patient after discharge: SHIRLEY DICKENS, MOTHER, * Verbal permission to speak to the caregivers and representatives has been obtained from the patient. N/A * Community resources currently utilized None * Please name any agencies selected above. NONE * Additional services required to return to the preadmission environment? No * Can the patient safely return to the preadmission environment? Yes * Has this patient been hospitalized within the prior 30 days at any hospital? No Last DP export: 12/26/18 4:00 p Patient Name: MELISSA DICKENS Page [id number] at 1709 All edits/amendments must be made on the electronic document DICTATION DATE: 12/26/181708 CONCRETE PRODUCTS DISPATCHER: HOLLEY 12/26/181708 RPT#: [id number] DC DATE: STATUS: ADM IN [facility] [address] [place] [address] END OF REPORT
[2018-12-26 20:00] VITALS: BP 140/78
[2018-12-27 00:30] VITALS: BP 135/82
[2018-12-27 04:30] VITALS: BP 153/92
[2018-12-27 06:25] LABS: BASOPHILS 0.4 % (0-2); EOSINOPHILS 0.8 % (0-7); HEMOGLOBIN 14.7 g/dL (12-16); LYMPHOCYTES 22.8 % (15-50); MCH 29.5 pg (26.0-34.0); MCV 84.2 fL (80.0-100.0); MONOCYTES 5.5 % (2-11); NEUTROPHILS 70.5 % (40-80); RBC 4.99 10x6/uL (4.00-5.40); RDW 13.6 % (11.5-14.5)
[2018-12-27 06:37] LABS: PLATELET COUNT 165 10x3/uL (130-400); WBC 5.3 10x3/uL (4.8-10.8)
[2018-12-27 06:46] LABS: CALCIUM 8.6 mg/dL (8.5-10.1); CARBON DIOXIDE 23.3 mmol/L (21.0-32.0); CHLORIDE - SERUM 106 mmol/L (98-107); CREATININE - SERUM 0.6 mg/dL (0.6-1.3); POTASSIUM - SERUM 3.6 mmol/L (3.5-5.1); SODIUM 144 mmol/L (136-145); UREA NITROGEN 4 mg/dL (7-18); eGFR NON AFRICAN AMERICAN > 90 mL/min (90-120)
[2018-12-27 06:47] LABS: CALC OSMOLALITY 281 mosm/kg (275-300); GLUCOSE 67 mg/dL (74-106); PHENYTOIN (DILANTIN) 16.4 ug/mL (10.0-20.0)
--- NOTE | 2018-12-27 07:00 | NUR ---
RECEIVED REPORT. ASSUMED CARE OF PATIENT. CALL LIGHT WITHIN REACH. RESTING IN BED WITH EYES OPEN. RESP EVEN AND UNLABORED. DENIES NEEDS. NO DISTRESS. PATIENT TALKING ABOUT HER CROSS ON HER NECKLACE IS IMPORTANT BECAUSE IS HELPS CONTROL HER SEIZURES. NO FAMILY AT BEDSIDE.
--- NOTE | 2018-12-27 08:36 | MORECARE ---
CASE MANAGEMENT DISCHARGE SUMMARY PATIENT: MELISSA DICKENS UNIT: [id number] ADM DATE: 12/25/18 AGE: 48 : 74 SEX: F ROOM/BED: D.0514 AUTHOR: MARILYN BURRELL PHYSICIAN: REFERRING PHYSICIAN: DAX MAURER DO DATE OF SERVICE: 12/27/18 Discharge Plan Patient Name: MELISSA DICKENS Facility: [facility]:[place] : 1970 Planned Disposition: Home Anticipated Discharge Date: 12/26/18 Discharge Date: Expected LOS: 1 Initial Reviewer: [email or web address] Initial Review Date: 12/26/2018 Generated: 12/27/18 9:35 am Comments DCP- Discharge Planning Updated by [email or web address]: Keo Mauricio on 12/26/18 4:[address] Patient Name: MELISSA DICKENS Encounter No: [id number] : 1970 Primary Insurance: MEDICAID [place] Anticipated DC Date: 12-26-2018 Planned Disposition: Home DISCHARGE PLANNING NOTE: CM MET WITH PT IN ROOM TO DISCUSS DISCHARGE PLANNING AND NEEDS. PT REPORTS LIVING AT HOME INDEPENDENTLY WITH HER MOTHER. PT HAS NO MEDICAL EQUIPMENT AND NO OUTSIDE SERVICES ASSISTING IN THE HOME. CM DISCUSSED AVAILABILITY OF HOME HEALTH, REHAB SERVICES AND MEDICAL EQUIPMENT. PT DENIES DISCHARGE NEEDS, REPORTS HER MOTHER WILL PICK HER UP FOR DISCHARGE HOME. CM DISCUSSED THE DOCTORS CONCERN OF PT'S LIVING SITUATION AND SUPERVISION AT HOME. PT REPORTS SHE IS SAFE AT HOME WITH HER MOTHER AND PT MANAGES HER OWN MEDICATIONS AND DENIES HAVING ISSUES UNTIL NOW. CM ASKED WHAT HAPPENED THIS TIME, PT MADE SOME THROAT VERBALIZATONS OVER AND OVER BUT DID NOT ANSWER THE QUESTION. CM ASKED AGAIN, PT SHOOK HER HEAD NO. CM ASKED IF SHE WANTED TO TALK ABOUT IT, PT STATES NO. PT STATES SHE IS GOING HOME AND HER MOTHER IS PICKING HER UP. CM EXPLAINED WHAT ADULT PROTECTIVE SERVICES DOES AND THAT CM WILL BE CALLING THE AGENCY TO CHECK ON HER AT HOME TO MAKE SURE SHE IS CARED FOR AND SAFE. PT REPORTS UNDERSTANDING. PT DENIES NEEDS. CM CALLDED ADULT PROTECTIVE SERVICES, , PROVIDED ALLEGATIONS OF PT HAVING SEIZURE DISORDER AND MAY HAVE MILD MENTAL RETARDATION WITH THE DOCTOR BEING CONCERNED ABOUT PT HAVING SUPERVISION AND SAFE ENVIRONMENT AT HOME. REPORT TAKEN, REFERENCE #[id number]. APS MAY OR MAY NOT INVESTIGATE. Keo Mauricio, CASE MANAGEMENT DCPIA - Discharge Planning Initial Assessment Updated by [email or web address]: Keo Mauricio on 12/26/18 4:57 pm * Is the patient Alert and Oriented? Yes * How many steps to enter\exit or inside your home? 2-3` * PCP NEW PRIMARY CARE PHYSICIAN, [place] * Pharmacy PHARMACY IN [place] * Preadmission Environment Home with Family * ADLs Independent * Equipment None * Other Equipment NO MEDICAL EQUIPMENT PROVIDER PREFERNCE * List name and contact numbers for known caregivers / representatives who currently or will assist patient after discharge: SHIRLEY DICKENS, MOTHER, * Verbal permission to speak to the caregivers and representatives has been obtained from the patient. N/A * Community resources currently utilized None * Please name any agencies selected above. NONE * Additional services required to return to the preadmission environment? No * Can the patient safely return to the preadmission environment? Yes * Has this patient been hospitalized within the prior 30 days at any hospital? No Last DP export: 12/26/18 4:09 p Patient Name: MELISSA DICKENS Page [phone] at 0836 All edits/amendments must be made on the electronic document DICTATION DATE: 12/27/18834 TRANSIT WORKER: HOLLEY 12/27/18834 RPT#: [id number] DC DATE: STATUS: ADM IN [facility] [address] [place] [address] END OF REPORT
--- NOTE | 2018-12-27 10:19 | NUR ---
BP ELEVATED AT 156/98. FLUIDS REDUCED FROM 125 TO 10ML/HR. TYLER HAWTHORNE NOTIFIED OF INCREASE IN BP. NO NEW ORDERS. SHARLENE WILL CONTINUE HER HOME MEDICATIONS THEY HAVE BEEN HELD WHILE HERE WITH ELEVATED DILANTIN LEVEL. PATIENT WILL BE DISCHARGED TO HOME TODAY.
[2018-12-27 10:52] VITALS: BP 163/98
[2018-12-27 13:48] VITALS: BP 161/97
--- NOTE | 2018-12-27 14:57 | NUR ---
PATIENT REFUSES FLU SHOT AT THIS TIME, WANTS TO FOLLOW WITH DR HONEYCUTT FOR IT. SHE ALSO TELLS ME THAT HER MOM IS SUPPOSE TO MAKE HER AN APPT WITH HER SEIZURE DOCTOR AT [facility].
--- NOTE | 2018-12-27 15:21 | NUR ---
PATIENT CONTINUES TO HAVE ELEVATED BLOOD PRESSURE TAKEN MANUALLY.
--- NOTE | 2018-12-27 16:05 | NUR ---
20 GAUGE IV REMOVED FROM LEFT FOREARM BY STUDENT NURSE AND INSTRUCTOR. NO BLEEDING FROM SITE. CATHETER TIP INTACT. 2X2 GAUZE APPLIED AND SECURED WITH BANDAID. TOELRATED IV REMOVAL WELL. PATIENT IS DISCHARGING TO HOME.
[2018-12-27 16:10] VITALS: BP 166/104
--- NOTE | 2018-12-27 16:45 | NUR ---
CALLED AND SPOKE TO PATIENTS MOTHER TO LET HER KNOW THAT PATIENT IS READY TO BE PICKED UP. THE MOTHER STATES THAT HER DAUGHTER HAS THE CAR BUT SHE WILL CALL AND TELL HER DAUGHTER TO COME AND PICK THE PATIENT UP BUT IT MIGHT BE A LITTLE BIT BEFORE SHE GETS UP HERE. PATIENTS MOM STATES THAT THE PATIENT ALWAYS SIGNS HER OWN DISCHARGE PAPERWORK DISCHARGE INSTRUCTIONS PROVIDED TO PATIENT AT THIS TIME WITH EXTENSIVE, REPEAT OF MEDICATION DIRECTIONS. PATIENT WAS ABLE TO VERBALIZE WHICH MEDICATIONS TO TAKE TONIGHT AND HOW MANY OF EACH PILL TO TAKE AND TO STOP TAKING HER DILANTIN. SUSTAINABILITY SPECIALIST RETURNED TO SOCIAL MEDIA MARKETING MANAGER. PATIENT IS DRESSED AND SITTING IN THE BED WAITING FOR HER FAMILY TO PICK HER UP.
--- NOTE | 2018-12-27 17:42 | NUR ---
PATIENT LEFT UNIT VIA WHEELCHAIR WITH ALL PERSONAL BELONGINGS. PATIENT DISCHARGED TO HOME WITH HER SISTER. PATIENT IN NO DISTRESS.
--- NOTE | 2018-12-28 07:09 | MORECARE ---
CASE MANAGEMENT DISCHARGE SUMMARY PATIENT: MELISSA DICKENS UNIT: [id number] ADM DATE: 12/25/18 AGE: 48 : 74 SEX: F ROOM/BED: D.7207 AUTHOR: MARILYN BURRELL PHYSICIAN: REFERRING PHYSICIAN: DAX MAURER DO DATE OF SERVICE: 12/28/18 Discharge Plan Patient Name: MELISSA DICKENS Facility: [facility]:[place] : 1970 Planned Disposition: Home Anticipated Discharge Date: 12/27/18 Discharge Date: 12/27/2018 Expected LOS: 2 Initial Reviewer: [email or web address] Initial Review Date: 12/26/2018 Generated: 12/28/18 8:09 am DCP- Discharge Planning Updated by [email or web address]: Keo Mauricio on 12/26/18 4:[address] Patient Name: MELISSA DICKENS Encounter No: [id number] : 1970 Primary Insurance: MEDICAID [place] Anticipated DC Date: 12-26-2018 Planned Disposition: Home DISCHARGE PLANNING NOTE: CM MET WITH PT IN ROOM TO DISCUSS DISCHARGE PLANNING AND NEEDS. PT REPORTS LIVING AT HOME INDEPENDENTLY WITH HER MOTHER. PT HAS NO MEDICAL EQUIPMENT AND NO OUTSIDE SERVICES ASSISTING IN THE HOME. CM DISCUSSED AVAILABILITY OF HOME HEALTH, REHAB SERVICES AND MEDICAL EQUIPMENT. PT DENIES DISCHARGE NEEDS, REPORTS HER MOTHER WILL PICK HER UP FOR DISCHARGE HOME. CM DISCUSSED THE DOCTORS CONCERN OF PT'S LIVING SITUATION AND SUPERVISION AT HOME. PT REPORTS SHE IS SAFE AT HOME WITH HER MOTHER AND PT MANAGES HER OWN MEDICATIONS AND DENIES HAVING ISSUES UNTIL NOW. CM ASKED WHAT HAPPENED THIS TIME, PT MADE SOME THROAT VERBALIZATONS OVER AND OVER BUT DID NOT ANSWER THE QUESTION. CM ASKED AGAIN, PT SHOOK HER HEAD NO. CM ASKED IF SHE WANTED TO TALK ABOUT IT, PT STATES NO. PT STATES SHE IS GOING HOME AND HER MOTHER IS PICKING HER UP. CM EXPLAINED WHAT ADULT PROTECTIVE SERVICES DOES AND THAT CM WILL BE CALLING THE AGENCY TO CHECK ON HER AT HOME TO MAKE SURE SHE IS CARED FOR AND SAFE. PT REPORTS UNDERSTANDING. PT DENIES NEEDS. CM CALLDED ADULT PROTECTIVE SERVICES, , PROVIDED ALLEGATIONS OF PT HAVING SEIZURE DISORDER AND MAY HAVE MILD MENTAL RETARDATION WITH THE DOCTOR BEING CONCERNED ABOUT PT HAVING SUPERVISION AND SAFE ENVIRONMENT AT HOME. REPORT TAKEN, REFERENCE #[id number]. APS MAY OR MAY NOT INVESTIGATE. Keo Mauricio, CASE MANAGEMENT DCPIA - Discharge Planning Initial Assessment Updated by [email or web address]: Keo Mauricio on 12/26/18 4:57 pm * Is the patient Alert and Oriented? Yes * How many steps to enter\exit or inside your home? 2-3` * PCP NEW PRIMARY CARE PHYSICIAN, [place] * Pharmacy PHARMACY IN [place] * Preadmission Environment Home with Family * ADLs Independent * Equipment None * Other Equipment NO MEDICAL EQUIPMENT PROVIDER PREFERNCE * List name and contact numbers for known caregivers / representatives who currently or will assist patient after discharge: SHIRLEY DICKENS, MOTHER, * Verbal permission to speak to the caregivers and representatives has been obtained from the patient. N/A * Community resources currently utilized None * Please name any agencies selected above. NONE * Additional services required to return to the preadmission environment? No * Can the patient safely return to the preadmission environment? Yes * Has this patient been hospitalized within the prior 30 days at any hospital? No Last DP export: 12/27/18 7:36 a Patient Name: MELISSA DICKENS Page 98005 at 0709 All edits/amendments must be made on the electronic document DICTATION DATE: 12/28/18708 ADJUNCT PHILOSOPHY FACULTY: HOLLEY 12/28/18708 RPT#: [id number] DC DATE:12/27/18 STATUS: DIS IN [facility] [address] [place] [address] END OF REPORT
== END 2018-12-27 17:40 | disposition home or self-care (01) | DRG 917 ==
LOC: D.ER 02:59 → OBSVTIME 03:14 → D.ICU 03:14 → D.M2 15:03
PROVIDERS: Family Medicine; Internal Medicine Nephrology; ADMIT Family Medicine; ATTEND Family Medicine
DX: T42.0X1A Poisoning by hydantoin derivatives, accidental (unintentional), initial encounter (principal); G92 Toxic encephalopathy; I10 Essential (primary) hypertension; G35 Multiple sclerosis; G40.909 Epilepsy, unspecified, not intractable, without status epilepticus; R41.83 Borderline intellectual functioning

== ENCOUNTER 2019-02-18 10:56 | Emergency (ER) | payer MEDICAID ==
[~2019-02-18] VITALS: Ht 167.6 cm; Wt 59.1 kg
--- NOTE | ~2019-02-18 | CN ---
PATIENT NAME:MELISSA DICKENS MEDICAL RECORD: [id number] : 74 LOCATION:D.ER ADMIT DATE: ACCOUNT: [id number] CONSULTING PHYSICIAN: KATIE KIMBLE MD REFERRING PHYSICIAN: EMELIA BURROUGHS MD DATE OF CONSULTATION: 02/18/2019 CARDIOLOGY CONSULTATION DIAGNOSES: 1. Increased troponin. 2. Seizure. 3. Tachycardia. HISTORY OF PRESENT ILLNESS: Mrs. Dickens is noncompliant with her seizure medications. She wears a cross necklace to styles off her seizures; however, the cross necklace failed to work this morning and that she did have a seizure, was transported to the Emergency Room. Her troponin is mildly elevated. She denies any chest pain or chest discomfort. She does not want any cardiac workup. She does not want any cardiac medications. Her EKG is with sinus tachycardia, but no ST-T abnormalities. PHYSICAL EXAMINATION: CONSTITUTIONAL/GENERAL APPEARANCE: Well nourished, well developed, appears stated age. EYES: Lids and conjunctivae noninjected. No discharge. No pallor. ENT: Lips within normal limit. No cyanosis. No pallor. NECK: Carotid arteries, bilateral normal upstroke. No bruits. No thrills. No jugular venous pressure or distention. CERVICAL LYMPH NODES: Nontender. Nonenlarged. THYROID: Not enlarged. No nodules. CARDIOVASCULAR: Precordial exam, nondisplaced. No heaves or pericardial thrills. Rate and rhythm, regular. Heart sounds, normal S1, normal S2. No S3, no gallop, no rub. Systolic murmur, not heard. Diastolic murmur, not heard. RESPIRATORY: Respiratory effort, unlabored. Normal curvature. No thoracic deformity. No chest wall tenderness. Percussion, resonant. Auscultation, clear. No wheezes, no rales, no rhonchi. ABDOMEN: Soft, nondistended, nontender. No abdominal pain, no vomiting and normal appetite. MUSCULOSKELETAL: No joint tenderness, normal gait, normal tone. SKIN: Warm and dry. OVERALL IMPRESSION: Elevated troponin, unsure the etiology of this. Her EKG is compatible with left ventricular hypertrophy. As she is noncompliant with her seizure medications, we have offered her cardiac medication. She does not want them and would not be compliant with cardiac medications. We will not be compliant with cardiac followup. Hence, at this time, there is little to offer her from a cardiac standpoint. TRANSINT:[id number] Voice Confirmation ID: [id number] DOCUMENT ID: [id number] CONSULT REPORT [id number] MELISSA DICKENS JEFFREY MD CC: [id number] DICTATION DATE: 02/18/19 1253 CONSTRUCTION PROJECT MANAGER: 02/18/19 1313 [facility] [address] [id number]
[2019-02-18 11:38] LABS: BASOPHILS 0.1 % (0-2); EOSINOPHILS 0.4 % (0-7); HEMATOCRIT 44.5 % (36.0-48.0); HEMOGLOBIN 15.6 g/dL (12-16); IMMATURE GRANULOCYTES 0.3 % (0-5); LYMPHOCYTES 11.4 % (15-50); MCHC 35.1 g/dL (31.0-37.0); MCV 85.6 fL (80.0-100.0); MEAN PLATELET VOLUME 12.3 fL (7.4-10.4); MONOCYTES 8.1 % (2-11); NEUTROPHILS 79.7 % (40-80); PLATELET COUNT 158 10x3/uL (130-400); RDW 15.6 % (11.5-14.5); WBC 6.9 10x3/uL (4.8-10.8)
[2019-02-18 11:48] LABS: CALC OSMOLALITY 262 mosm/kg (275-300); CALCIUM 8.8 mg/dL (8.5-10.1); CARBON DIOXIDE 28.7 mmol/L (21.0-32.0); CHLORIDE - SERUM 101 mmol/L (98-107); CREATININE - SERUM 0.8 mg/dL (0.6-1.3); GLUCOSE 97 mg/dL (74-106); POTASSIUM - SERUM 3.4 mmol/L (3.5-5.1); SODIUM 132 mmol/L (136-145); UREA NITROGEN 8 mg/dL (7-18); eGFR NON AFRICAN AMERICAN 81 mL/min (90-120)
[2019-02-18 12:08] LABS: ALBUMIN 3.5 g/dL (3.4-5.0); ALKALINE PHOSPHATASE 100 U/L (46-116); ALT (SGPT) 58 U/L (10-68); BILIRUBIN - TOTAL 0.29 mg/dL (0.2-1.3); CKMB 0.7 U/L (0.0-3.6); CREATINE KINASE 50 UL (21-215); PHENYTOIN (DILANTIN) 21.1 ug/mL (10.0-20.0); PROTEIN - SERUM 7.9 g/dL (6.4-8.2)
[2019-02-18 12:55] VITALS: Ht 167.6 cm; Wt 59.1 kg
[2019-02-18 14:43] LABS: APPEARANCE CLEAR (CLEAR); BILIRUBIN NEGATIVE (NEGATIVE); COLOR YELLOW (YELLOW); GLUCOSE NEGATIVE (NEGATIVE); KETONE NEGATIVE (NEGATIVE); NITRITE NEGATIVE (NEGATIVE); PROTEIN NEGATIVE (NEGATIVE); SPECIFIC GRAVITY 1.005 (1.005-1.020); UROBILINOGEN NORMAL (NORMAL)
[2019-02-18 14:44] LABS: UDS - AMPHET NEGATIVE QUAL (NEGATIVE); UDS - BARB NEGATIVE QUAL (NEGATIVE); UDS - BENZO NEGATIVE QUAL (NEGATIVE); UDS - COCAINE NEGATIVE QUAL (NEGATIVE); UDS - OPIATE NEGATIVE QUAL (NEGATIVE); UDS - PCP NEGATIVE QUAL (NEGATIVE); UDS - THC NEGATIVE QUAL (NEGATIVE)
[2019-02-18 15:23] VITALS: BP 136/85
== END 2019-02-18 15:40 | disposition home or self-care (01) ==
LOC: D.ER 10:56
PROVIDERS: Family Medicine
DX: G40.909 Epilepsy, unspecified, not intractable, without status epilepticus (principal); R46.89 Other symptoms and signs involving appearance and behavior; I10 Essential (primary) hypertension

== ENCOUNTER 2019-03-20 23:05 | Emergency (ER) | payer MEDICAID ==
[~2019-03-20] VITALS: Ht 167.6 cm; Wt 54.5 kg
[2019-03-20 23:16] VITALS: Ht 167.6 cm; Wt 54.5 kg
[2019-03-20 23:43] LABS: HEMATOCRIT 43.2 % (36.0-48.0); HEMOGLOBIN 14.5 g/dL (12-16); LYMPHOCYTES 16.8 % (15-50); MCH 28.9 pg (26.0-34.0); MCHC 33.6 g/dL (31.0-37.0); MCV 86.2 fL (80.0-100.0); NEUTROPHILS 74.9 % (40-80); PLATELET COUNT 112 10x3/uL (130-400); RBC 5.01 10x6/uL (4.00-5.40); RDW 15.4 % (11.5-14.5); WBC 4.9 10x3/uL (4.8-10.8)
[2019-03-21 00:01] LABS: ALBUMIN 3.5 g/dL (3.4-5.0); ANION GAP 24.2 mmol/L (8-16); BILIRUBIN - TOTAL 0.16 mg/dL (0.2-1.3); CALCIUM 8.3 mg/dL (8.5-10.1); CARBAMAZEPINE (TEGRETOL) 0.2 ug/mL (4.0-12.0); CARBON DIOXIDE 19.1 mmol/L (21.0-32.0); MAGNESIUM - SERUM 2.2 mg/dL (1.8-2.4); PHENYTOIN (DILANTIN) 5.4 ug/mL (10.0-20.0); POTASSIUM - SERUM 4.3 mmol/L (3.5-5.1); PROTEIN - SERUM 7.2 g/dL (6.4-8.2)
[2019-03-21 02:00] VITALS: BP 148/86
[2019-03-21 02:23] LABS: APPEARANCE CLEAR (CLEAR); BILIRUBIN NEGATIVE (NEGATIVE); COLOR YELLOW (YELLOW); GLUCOSE NEGATIVE (NEGATIVE); KETONE NEGATIVE (NEGATIVE); NITRITE NEGATIVE (NEGATIVE); PROTEIN 2+ mg/dL (NEGATIVE); UROBILINOGEN NORMAL (NORMAL)
[2019-03-21 02:26] LABS: UDS - AMPHET NEGATIVE QUAL (NEGATIVE); UDS - BARB NEGATIVE QUAL (NEGATIVE); UDS - BENZO POSITIVE QUAL (NEGATIVE); UDS - COCAINE NEGATIVE QUAL (NEGATIVE); UDS - OPIATE NEGATIVE QUAL (NEGATIVE); UDS - PCP NEGATIVE QUAL (NEGATIVE); UDS - THC NEGATIVE QUAL (NEGATIVE)
== END 2019-03-21 02:54 | disposition home or self-care (01) ==
LOC: D.ER 23:05
PROVIDERS: Family Medicine
DX: G40.909 Epilepsy, unspecified, not intractable, without status epilepticus (principal); I10 Essential (primary) hypertension; Z91.14 Patient's other noncompliance with medication regimen

== ENCOUNTER 2019-03-31 06:31 | Emergency (ER) | payer MEDICAID ==
[~2019-03-31] VITALS: Ht 167.6 cm; Wt 68.0 kg
[2019-03-31 06:35] VITALS: Ht 167.6 cm; Wt 68.0 kg
[2019-03-31 07:05] LABS: APPEARANCE CLEAR (CLEAR); BILIRUBIN NEGATIVE (NEGATIVE); COLOR STRAW (YELLOW); GLUCOSE NEGATIVE (NEGATIVE); KETONE NEGATIVE (NEGATIVE); NITRITE NEGATIVE (NEGATIVE); PROTEIN NEGATIVE (NEGATIVE); SPECIFIC GRAVITY 1.015 (1.005-1.020); UROBILINOGEN NORMAL (NORMAL)
[2019-03-31 07:07] LABS: BACTERIA FEW /hpf (NEGATIVE); EPITHELIAL CELLS 0-5 /hpf (0-5); RED CELLS - URINE 0-5 /hpf (0-5); WHITE CELLS - URINE 0-5 /hpf (NEGATIVE)
[2019-03-31 07:11] LABS: UDS - AMPHET NEGATIVE QUAL (NEGATIVE); UDS - BARB NEGATIVE QUAL (NEGATIVE); UDS - BENZO NEGATIVE QUAL (NEGATIVE); UDS - COCAINE NEGATIVE QUAL (NEGATIVE); UDS - OPIATE NEGATIVE QUAL (NEGATIVE); UDS - PCP NEGATIVE QUAL (NEGATIVE); UDS - THC NEGATIVE QUAL (NEGATIVE)
[2019-03-31 07:21] LABS: BASOPHILS 0.3 % (0-2); EOSINOPHILS 1.7 % (0-7); HEMATOCRIT 41.9 % (36.0-48.0); HEMOGLOBIN 14.5 g/dL (12-16); IMMATURE GRANULOCYTES 0.1 % (0-5); MCH 29.5 pg (26.0-34.0); MCHC 34.6 g/dL (31.0-37.0); MCV 85.2 fL (80.0-100.0); MONOCYTES 4.9 % (2-11); RBC 4.92 10x6/uL (4.00-5.40); RDW 13.9 % (11.5-14.5); WBC 6.9 10x3/uL (4.8-10.8)
[2019-03-31 07:22] LABS: PLATELET COUNT 198 10x3/uL (130-400)
[2019-03-31 07:27] LABS: CALC OSMOLALITY 277 mosm/kg (275-300); CALCIUM 8.9 mg/dL (8.5-10.1); CARBON DIOXIDE 28.9 mmol/L (21.0-32.0); CHLORIDE - SERUM 102 mmol/L (98-107); CREATININE - SERUM 0.9 mg/dL (0.6-1.3); GLUCOSE 90 mg/dL (74-106); POTASSIUM - SERUM 3.8 mmol/L (3.5-5.1); SODIUM 140 mmol/L (136-145); UREA NITROGEN 11 mg/dL (7-18); eGFR NON AFRICAN AMERICAN 71 mL/min (90-120)
[2019-03-31 07:44] LABS: ALBUMIN 3.7 g/dL (3.4-5.0); ALKALINE PHOSPHATASE 100 U/L (46-116); ALT (SGPT) 60 U/L (10-68); CREATINE KINASE 50 UL (21-215); PRO BNP 31 pg/mL (0-125); PROTEIN - SERUM 8.2 g/dL (6.4-8.2); THYROID STIMULATING HORMONE 1.21 uIU/mL (0.36-3.74)
[2019-03-31 07:46] LABS: TROPONIN-I < 0.017 ng/mL (0.000-0.060)
[2019-03-31 07:53] LABS: HCG URINE NEGATIVE (NEGATIVE)
[2019-03-31 10:56] VITALS: BP 136/87
== END 2019-03-31 11:15 | disposition home or self-care (01) ==
LOC: D.ER 06:31
PROVIDERS: Family Medicine
DX: R06.02 Shortness of breath (principal); F41.9 Anxiety disorder, unspecified; R79.89 Other specified abnormal findings of blood chemistry

== ENCOUNTER 2020-04-27 16:42 | Inpatient (IN) | payer MEDICAID ==
[~2020-04-27] VITALS: Ht 167.6 cm; Wt 59.0 kg
[2020-04-27 17:32] LABS: BASOPHILS 0 % (0-2); EOSINOPHILS 0 % (0-7); HEMATOCRIT 41.8 % (36.0-48.0); HEMOGLOBIN 14.9 g/dL (12-16); IMMATURE GRANULOCYTES 0.3 % (0-5); LYMPHOCYTE ABS# 1.26 10x3/uL (1.18-3.74); LYMPHOCYTES 42.1 % (15-50); MCH 29.4 pg (26.0-34.0); MCHC 35.6 g/dL (31.0-37.0); MCV 82.6 fL (80.0-100.0); MONOCYTES 16.4 % (2-11); NEUTROPHIL ABS# 1.23 10x3/uL (1.56-6.13); NEUTROPHILS 41.2 % (40-80); RBC 5.06 10x6/uL (4.00-5.40); RDW 14.5 % (11.5-14.5)
[2020-04-27 17:33] LABS: PLATELET COUNT 107 10x3/uL (130-400)
[2020-04-27 17:43] LABS: BILIRUBIN NEGATIVE (NEGATIVE); HCG URINE NEGATIVE (NEGATIVE); KETONE NEGATIVE (NEGATIVE); NITRITE NEGATIVE (NEGATIVE); UROBILINOGEN NORMAL mg/dL (< 2)
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
[2020-04-27 17:57] LABS: WHITE CELLS - URINE 0-5 HPF (0-4)
[2020-04-27 17:58] LABS: BACTERIA FEW HPF (NONE SEEN); SQUAMOUS EPITHELIAL 0-5 HPF (0-4)
--- NOTE | 2020-04-27 18:02 | NUR ---
SCREENER HERE TO SEE PT
[2020-04-27 19:19] LABS: CALC OSMOLALITY 279 mosm/kg (275-300); CALCIUM 8.5 mg/dL (8.5-10.1); CARBON DIOXIDE 25.4 mmol/L (21.0-32.0); CHLORIDE - SERUM 105 mmol/L (98-107); CREATININE - SERUM 0.8 mg/dL (0.6-1.3); GLUCOSE 109 mg/dL (74-106); POTASSIUM - SERUM 3.9 mmol/L (3.5-5.1); SODIUM 141 mmol/L (136-145); UREA NITROGEN 8 mg/dL (7-18); eGFR NON AFRICAN AMERICAN 81 mL/min (90-120)
[2020-04-27 19:20] LABS: UDS - AMPHET NEGATIVE QUAL (NEGATIVE); UDS - BARB NEGATIVE QUAL (NEGATIVE); UDS - BENZO NEGATIVE QUAL (NEGATIVE); UDS - COCAINE NEGATIVE QUAL (NEGATIVE); UDS - OPIATE NEGATIVE QUAL (NEGATIVE); UDS - PCP NEGATIVE QUAL (NEGATIVE); UDS - THC NEGATIVE QUAL (NEGATIVE)
[2020-04-27 19:30] LABS: ALBUMIN 3.5 g/dL (3.4-5.0); ALKALINE PHOSPHATASE 100 U/L (30-120); ALT (SGPT) 58 U/L (10-68); BILIRUBIN - TOTAL 0.09 mg/dL (0.2-1.3); MAGNESIUM - SERUM 2.1 mg/dL (1.8-2.4); PROTEIN - SERUM 7.2 g/dL (6.4-8.2)
[2020-04-27 19:57] VITALS: BP 148/71
[2020-04-27 21:07] LABS: SARS-CoV-2 ANTIGEN POSITIVE- SARS-COV-2 (NEGATIVE)
--- NOTE | 2020-04-27 22:03 | NUR ---
PT SITTING IN BED GIVEN MARSHA AND HAZEL CRACKERS. PT TOOK ALL HER MEDS NO PROBLEM. PT INFORMED SHE WOULD BE ADMITED.
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
[2020-04-28 06:32] LABS: HEMATOCRIT 42.9 % (36.0-48.0); HEMOGLOBIN 14.7 g/dL (12-16); LYMPHOCYTE ABS# 1.07 10x3/uL (1.18-3.74); MCH 28.7 pg (26.0-34.0); MCHC 34.3 g/dL (31.0-37.0); MCV 83.6 fL (80.0-100.0); NEUTROPHIL ABS# 1.08 10x3/uL (1.56-6.13); RBC 5.13 10x6/uL (4.00-5.40); RDW 14.6 % (11.5-14.5); WBC 2.6 10x3/uL (4.8-10.8)
[2020-04-28 06:33] LABS: PLATELET COUNT 130 10x3/uL (130-400)
[2020-04-28 07:00] LABS: LYMPHOCYTES 21 % (15-50); NEUTROPHILS 78 % (40-80); PLATELET ESTIMATE NORMAL
--- NOTE | 2020-04-28 07:15 | NUR ---
PT RESTING IN ER BED ON ARIVAL TO ROOM, RESP. HERE BREATHING TX GIVEN. PT FOLLOWS INSTRUCTION. RESP. EVEN AND UNLABORED. LUNGS CLEAR THROUGHOUT.
[2020-04-28 07:38] LABS: ERYTHROCYTE SEDIMENTATION RATE 9 mm/hr (0-20)
[2020-04-28 07:39] LABS: C-REACTIVE PROTEIN 1.2 mg/dL (0.0-0.9); CALC OSMOLALITY 274 mosm/kg (275-300); CALCIUM 8.4 mg/dL (8.5-10.1); CARBON DIOXIDE 24.4 mmol/L (21.0-32.0); CHLORIDE - SERUM 106 mmol/L (98-107); CREATININE - SERUM 0.7 mg/dL (0.6-1.3); FERRITIN 72 ng/mL (3-244); GLUCOSE 82 mg/dL (74-106); LDH 152 U/L (81-234); MAGNESIUM - SERUM 2.3 mg/dL (1.8-2.4); PHOSPHOROUS 4.2 mg/dL (2.5-4.9); POTASSIUM - SERUM 3.5 mmol/L (3.5-5.1); SODIUM 139 mmol/L (136-145); UREA NITROGEN 8 mg/dL (7-18); eGFR NON AFRICAN AMERICAN > 90 mL/min (90-120)
--- NOTE | 2020-04-28 09:28 | NUR ---
PT ABLE TO NAY ALL AM MEDS.
--- NOTE | 2020-04-28 09:59 | NUR ---
PT UP TO RESTROOM, STATES SHE FEELS BAD, PT ON HER PERIOD, CHANGED AND CLEANED UP.
[2020-04-28 12:57] VITALS: BP 134/82; BMI 21.0
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
[2020-04-28 16:02] VITALS: BP 128/81
--- NOTE | 2020-04-28 16:20 | NUR ---
PATIENT UNABLE TO GIVE ACCURATE HOME MEDICATION LIST. PATIENT STATED HER MOTHER HAS HER HOME MED LIST AND GIVES HER THE MEDICATIONS. CALLED PATIENT'S MOTHER, SHIRLEY DICKENS, TO REVIEW CURRENT MEDICATIONS LIST. ALSO CALLED [facility]. MED REC UPDATED.
[2020-04-28] MEDS ORDERED: DILANTIN100 MG PO (16:25)
[2020-04-28] MEDS ORDERED: COPAXONE INJ20 MG/ML SQ (16:35)
--- NOTE | 2020-04-28 20:00 | NUR ---
INITIAL ROUNDS AND ASSESSMENT COMPLETED. PT RESTING IN BED WITH EYES CLOSED. ROUSES EASILY TO VERBAL STIMULI. NONLABORED RESPIRATIONS ON ROOM AIR. ASSISTED TO WALK TO BATHROOM TO VOID AND CHANGE OUT HER BRIEF AND OB PADS DUE TO HER MENSTRUAL CYCLE. BACK TO BED AND RESTING. CALL LIGHT IN REACH.
[2020-04-28 21:15] VITALS: BP 116/69
[2020-04-29 05:00] VITALS: BP 109/59
[2020-04-29 06:24] LABS: CALC OSMOLALITY 274 mosm/kg (275-300); CALCIUM 8.4 mg/dL (8.5-10.1); CARBON DIOXIDE 29.1 mmol/L (21.0-32.0); CHLORIDE - SERUM 104 mmol/L (98-107); CREATININE - SERUM 0.8 mg/dL (0.6-1.3); GLUCOSE 84 mg/dL (74-106); MAGNESIUM - SERUM 2.1 mg/dL (1.8-2.4); PHOSPHOROUS 3.9 mg/dL (2.5-4.9); POTASSIUM - SERUM 3.8 mmol/L (3.5-5.1); SODIUM 139 mmol/L (136-145); UREA NITROGEN 8 mg/dL (7-18); eGFR NON AFRICAN AMERICAN 81 mL/min (90-120)
[2020-04-29 06:49] LABS: HEMOGLOBIN 14.7 g/dL (12-16); LYMPHOCYTE ABS# 1.56 10x3/uL (1.18-3.74); MCH 29.2 pg (26.0-34.0); MCV 83.3 fL (80.0-100.0); PLATELET COUNT 124 10x3/uL (130-400); RBC 5.04 10x6/uL (4.00-5.40); RDW 14.4 % (11.5-14.5); WBC 2.8 10x3/uL (4.8-10.8)
[2020-04-29 08:13] VITALS: BP 131/83
[2020-04-29 11:01] VITALS: Ht 167.6 cm; Wt 59.0 kg
[2020-04-29 12:19] VITALS: BP 126/76
[2020-04-29 13:36] LABS: EOSINOPHILS 1 % (0-7); LYMPHOCYTES 49 % (15-50); MONOCYTES 18 % (2-11); NEUTROPHILS 31 % (40-80); PLATELET ESTIMATE NORMAL
--- NOTE | 2020-04-29 13:36 | NUR ---
REC'D PT IN BED WITH EYES OPEN. AWAKE AND ALERT TO PERSON AND PLACE. PRESCRIBED MEDS PROVIDED ORDERED. MED COMPLIANT. RESP. EVEN AND UNLABORED ON ROOM AIR. NO IV. PT. DENIES ANY PAIN OR DISCOMFORT AT THIS TIME. PT IS CONT OF B&B. WEAKNESS NOTED TO LOWER EXT. PT ENCOURAGED TO CALL STAFF FOR HELP. NO S/SX OF SOB. PT CAN COMMUNICATE WITH STAFF, SPEECH IS SLURRED AND VERY QUITE. BED IN LOW POSITION. CALL LIGHT WITHIN REACH. WILL CPOC.
[2020-04-29 15:35] VITALS: BP 122/81
--- NOTE | 2020-04-29 16:48 | NUR ---
PT MOM CALLED REGARDING PT MEDICATION FOR M/S COPAXONE 20MG IM DAILY. THIS NURSE WILL REPORT MEDICATION TO MD. MOM STATES " IF HOSPITAL DOES NOT CARRY MEDICATION, SHE CAN BRING FROM HOME."
[2020-04-29 20:00] VITALS: BP 127/92
[2020-04-30] VITALS (7 sets, daily range): BP systolic 114–141; BP diastolic 60–84
--- NOTE | 2020-04-30 04:25 | NUR ---
I have reviewed this patient and I concur with the Shift Assessment completed by the Licensed Practical Nurse today this shift.
[2020-04-30 07:11] LABS: CALC OSMOLALITY 273 mosm/kg (275-300); CARBON DIOXIDE 25.7 mmol/L (21.0-32.0); CHLORIDE - SERUM 104 mmol/L (98-107); CREATININE - SERUM 0.8 mg/dL (0.6-1.3); GLUCOSE 78 mg/dL (74-106); MAGNESIUM - SERUM 1.9 mg/dL (1.8-2.4); PHOSPHOROUS 3.6 mg/dL (2.5-4.9); POTASSIUM - SERUM 3.1 mmol/L (3.5-5.1); SODIUM 138 mmol/L (136-145); UREA NITROGEN 9 mg/dL (7-18); eGFR NON AFRICAN AMERICAN 81 mL/min (90-120)
[2020-04-30 07:21] LABS: BASOPHILS 0 % (0-2); EOSINOPHILS 0 % (0-7); HEMATOCRIT 40.3 % (36.0-48.0); HEMOGLOBIN 14.2 g/dL (12-16); IMMATURE GRANULOCYTES 0.3 % (0-5); LYMPHOCYTES 51.4 % (15-50); MCH 28.9 pg (26.0-34.0); MCHC 35.2 g/dL (31.0-37.0); MCV 82.1 fL (80.0-100.0); MONOCYTES 12.2 % (2-11); NEUTROPHIL ABS# 1.12 10x3/uL (1.56-6.13); NEUTROPHILS 36.1 % (40-80); RBC 4.91 10x6/uL (4.00-5.40); RDW 14.2 % (11.5-14.5); WBC 3.1 10x3/uL (4.8-10.8)
[2020-04-30 07:23] LABS: PLATELET COUNT 95 10x3/uL (130-400)
--- NOTE | 2020-04-30 08:00 | NUR ---
INITIAL ROUND AND ASSESSMENT COMPLETE. PATIENT IS AWAKE WATCHING TV. NO SIGNS OF DISTRESS. PATIENT HAS NO IV. NON SLIP SOCKS PUT ON PATIENT. ASSISTED PATIENT TO AND FROM BATHROOM. DENIES HAVING ANY PAIN OR NEEDS AT THIS TIME. BED IN LOWEST POSITION. SIDE RAILS UP. CALL LIGHT IN REACH. WILL CONTINUE TO MONITOR.
--- NOTE | 2020-04-30 08:38 | CN ---
PATIENT NAME:MELISSA DICKENS MEDICAL RECORD: [id number] : 74 LOCATION:D. D.2125 ADMIT DATE: 04/27/20 ACCOUNT: [id number] CONSULTING PHYSICIAN: ARACELY KEANE MD REFERRING PHYSICIAN: JOY SHEN MD DATE OF CONSULTATION: 04/29/2020 IDENTIFYING DATA: The patient is 50-year-old and she is admitted to the hospital secondary to psychotic symptoms. CHIEF COMPLAINT: None. HISTORY OF PRESENT ILLNESS: The patient presented to the Emergency Department reporting psychotic symptoms. Specifically, she believed that someone was trying to poison her. She does have a history of mental illness. She was subsequently referred for inpatient psychiatric care, but the facility required a COVID test before she could be transferred and she tested positive. She currently is endorsing psychotic symptoms. She is disorganized and has obvious impairment cognitively. Unfortunately, she also has a number of serious medical problems including epilepsy, hypertension, and multiple sclerosis. ASSESSMENT: Major depression with psychotic features. PLAN: The patient is not directly dangerous and that she is not wanting to hurt herself or others, but her level of impairment and the bizarre and disturbing paranoid symptoms do require inpatient care. I have started her on an antidepressant and antipsychotic medication and would recommend that she be transferred to acute inpatient psychiatric care once medically stabilized. TRANSINT:[id number] Voice Confirmation ID: [id number] DOCUMENT ID: [id number] ARACELY KEANE MD at 0838 CC: [id number] DICTATION DATE: 04/29/20 164 DOBBY LOOM FIXER: 04/29/20 2244 ADM IN [place] [id number] [place] [address]
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
[2020-04-30 13:56] LABS: ANISOCYTOSIS OCC; PLATELET ESTIMATE DECREASED
--- NOTE | 2020-05-01 03:49 | NUR ---
I have reviewed this patient and I concur with the Shift Assessment completed by the Licensed Practical Nurse today this shift.
[2020-05-01 06:59] LABS: CALC OSMOLALITY 275 mosm/kg (275-300); CALCIUM 8.2 mg/dL (8.5-10.1); CARBON DIOXIDE 25.9 mmol/L (21.0-32.0); CHLORIDE - SERUM 104 mmol/L (98-107); CREATININE - SERUM 0.7 mg/dL (0.6-1.3); GLUCOSE 80 mg/dL (74-106); MAGNESIUM - SERUM 1.9 mg/dL (1.8-2.4); PHOSPHOROUS 3.3 mg/dL (2.5-4.9); SODIUM 139 mmol/L (136-145); UREA NITROGEN 10 mg/dL (7-18); eGFR NON AFRICAN AMERICAN > 90 mL/min (90-120)
[2020-05-01 07:00] LABS: POTASSIUM - SERUM 3.4 mmol/L (3.5-5.1)
--- NOTE | 2020-05-01 07:00 | NUR ---
REPORT RECEIVED. PATIENT IS AAOX3, LYING IN SEMI-FOWLERS POSITION. NO S/S OF DISTRESS OBSERVED, RR EVEN AND UNLABORED ON ROOM AIR. PATIENT DENIES NEEDS AT THIS TIME. CL IN REACH, BED LOCKED AND LOWERED. COVID PRECAUTIONS MAINTAINED. WILL CPOC.
[2020-05-01 08:20] LABS: BASOPHILS 0.3 % (0-2); EOSINOPHILS 0 % (0-7); HEMATOCRIT 41.2 % (36.0-48.0); HEMOGLOBIN 14.6 g/dL (12-16); LYMPHOCYTE ABS# 1.45 10x3/uL (1.18-3.74); LYMPHOCYTES 42.6 % (15-50); MCHC 35.4 g/dL (31.0-37.0); MCV 81.9 fL (80.0-100.0); MONOCYTES 12.9 % (2-11); NEUTROPHILS 44.2 % (40-80); RBC 5.03 10x6/uL (4.00-5.40); RDW 14.2 % (11.5-14.5); WBC 3.4 10x3/uL (4.8-10.8)
[2020-05-01 08:26] LABS: PLATELET COUNT 147 10x3/uL (130-400)
[2020-05-01 08:40] VITALS: BP 147/91
[2020-05-01 12:43] VITALS: BP 130/88
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
[2020-05-01 20:00] VITALS: BP 158/87
[2020-05-02] VITALS: BP 152/92
--- NOTE | 2020-05-02 02:21 | NUR ---
I have reviewed this patient and I concur with the Shift Assessment completed by the Licensed Practical Nurse today this shift.
[2020-05-02 06:25] LABS: BASOPHILS 0 % (0-2); EOSINOPHILS 1.1 % (0-7); HEMATOCRIT 41.4 % (36.0-48.0); HEMOGLOBIN 14.5 g/dL (12-16); IMMATURE GRANULOCYTES 0.3 % (0-5); LYMPHOCYTES 37.1 % (15-50); MCH 28.8 pg (26.0-34.0); MCV 82.3 fL (80.0-100.0); MONOCYTES 15.7 % (2-11); NEUTROPHILS 45.8 % (40-80); PLATELET COUNT 126 10x3/uL (130-400); RBC 5.03 10x6/uL (4.00-5.40); RDW 14.2 % (11.5-14.5); WBC 3.5 10x3/uL (4.8-10.8)
[2020-05-02 06:48] LABS: CALC OSMOLALITY 280 mosm/kg (275-300); CALCIUM 8.3 mg/dL (8.5-10.1); CARBON DIOXIDE 25.5 mmol/L (21.0-32.0); CHLORIDE - SERUM 106 mmol/L (98-107); CREATININE - SERUM 0.8 mg/dL (0.6-1.3); GLUCOSE 71 mg/dL (74-106); POTASSIUM - SERUM 3.6 mmol/L (3.5-5.1); SODIUM 142 mmol/L (136-145); UREA NITROGEN 13 mg/dL (7-18); eGFR NON AFRICAN AMERICAN 81 mL/min (90-120)
[2020-05-02 08:00] VITALS: BP 15/93
--- NOTE | 2020-05-02 08:00 | NUR ---
PT RECEIVED AWAKE AND SOMEWHAT "SPACEY". TOOK MEDS AND EATING BREAKFAST AT PRESENT. PT WITHOUT IV.
[2020-05-02 11:00] VITALS: BP 143/86
--- NOTE | 2020-05-02 11:11 | NUR ---
Nutrition Follow-up: Pt in droplet isolation; PCR pending. Awaiting placement. Poor PO intake recorded. Diet: Regular PO intake: 0-25% (04/30) Wt: 130# (04/29) Labs noted: Ca 8.3 Meds noted: Decadron, Protonix, zinc sulfate, vit B1, vit C, vit D, electrolyte protocol -Encourage PO intake and honor food preferences. -+Ensure with meals. -Need new wt if possible. -RD will follow up within 4-5 days.
[2020-05-02 15:00] VITALS: BP 146/90
[2020-05-02 20:00] VITALS: BP 157/95
[2020-05-03] VITALS (7 sets, daily range): BP systolic 117–161; BP diastolic 67–100
[2020-05-03 05:36] LABS: CALC OSMOLALITY 273 mosm/kg (275-300); CALCIUM 8.3 mg/dL (8.5-10.1); CARBON DIOXIDE 28.6 mmol/L (21.0-32.0); CHLORIDE - SERUM 103 mmol/L (98-107); CREATININE - SERUM 0.8 mg/dL (0.6-1.3); GLUCOSE 78 mg/dL (74-106); MAGNESIUM - SERUM 1.8 mg/dL (1.8-2.4); PHOSPHOROUS 3.8 mg/dL (2.5-4.9); POTASSIUM - SERUM 3.5 mmol/L (3.5-5.1); SODIUM 138 mmol/L (136-145); UREA NITROGEN 11 mg/dL (7-18); eGFR NON AFRICAN AMERICAN 81 mL/min (90-120)
[2020-05-03 06:23] LABS: HEMATOCRIT 39.1 % (36.0-48.0); HEMOGLOBIN 13.8 g/dL (12-16); LYMPHOCYTE ABS# 1.24 10x3/uL (1.18-3.74); MCH 29.1 pg (26.0-34.0); MCHC 35.3 g/dL (31.0-37.0); MCV 82.3 fL (80.0-100.0); NEUTROPHIL ABS# 1.48 10x3/uL (1.56-6.13); PLATELET COUNT 136 10x3/uL (130-400); RBC 4.75 10x6/uL (4.00-5.40); WBC 3.2 10x3/uL (4.8-10.8)
--- NOTE | 2020-05-03 08:00 | NUR ---
PT RECEIVED AWAKE AND ALERT ON SIDE OF BED WITH BREAKFAST. MEDS GIVEN. SHE WAS CONFUSED ABOUT WHAT COFFEE CREAMER WAS FOR IF NEVER SEEN IT. EXPLAINED AND MIXED FOR HER TO TRY.
[2020-05-03 10:14] LABS: BASOPHILS 1 % (0-2); LYMPHOCYTES 37 % (15-50); MONOCYTES 16 % (2-11); NEUTROPHILS 46 % (40-80); PLATELET ESTIMATE NORMAL; ROULEAUX OCC
--- NOTE | 2020-05-03 13:17 | MORECARE ---
CASE MANAGEMENT DISCHARGE SUMMARY PATIENT: MELISSA DICKENS UNIT: [id number] ADM DATE: 04/27/20 AGE: 50 : 74 SEX: F ROOM/BED: D.3456 AUTHOR: MARILYN BURRELL PHYSICIAN: REFERRING PHYSICIAN: JOY SHEN MD DATE OF SERVICE: 05/03/20 Discharge Plan Patient Name: MELISSA DICKENS Facility: [facility]:[place] : 1970 Planned Disposition: Psych facility Anticipated Discharge Date: Discharge Date: Expected LOS: Initial Reviewer: [id number] Initial Review Date: 05/03/2020 Generated: 05/03/20 2:17 pm Comments DCP- Discharge Planning Updated by [email or web address]: Gladys Velasco on 05/03/20 12:[address] Patient Name: MELISSA DICKENS Admission Status: ER Accout number: [id number] Admission Date: 04-27-2020 : 1970 Admission Diagnosis:COVID-19 Attending: DAMION SHEN Current LOS: 6 Anticipated DC Date: Planned Disposition: Psych facility Primary Insurance: MEDICAID [place] Discharge Planning Comments: Cm called patient's room per COVID isolation protocol. Patient states she had been living at home with her mother. I informed her that her psychologist here recommends she goes to an inpatient psychiatric facility and she is agreeable to this. I have called [facility] and spoke with Alpa, she states no beds availability. [facility] states OK to send a referral, I faxed referral to Estelle at [facility]. [facility] positive patients. [facility] does not take Covid positive patients. I will continue to call inpatient facilities for placement. Aircraft Maintenance Instructor: Gladys Velasco DCPIA - Discharge Planning Initial Assessment Updated by [id number]: Gladys Velasco on 05/03/20 1:12 pm * Is the patient Alert and Oriented? No * Preadmission Environment Home with Family * ADLs Independent External Providers External Provider: OTHER-OTHER Next Contact Date: Service Request Date: Service Type: Resolution: Reviewer: Comments: Patient Name: MELISSA DICKENS Page [id number] at 1317 All edits/amendments must be made on the electronic document DICTATION DATE: 05/03/201316 RN OFFICE: HOLLEY 05/03/201316 RPT#: [id number] DC DATE: STATUS: ADM IN [facility] [address] [place] [address] END OF REPORT
--- NOTE | 2020-05-03 14:31 | MORECARE ---
CASE MANAGEMENT DISCHARGE SUMMARY PATIENT: MELISSA DICKENS UNIT: [id number] ADM DATE: 04/27/20 AGE: 50 : 74 SEX: F ROOM/BED: D.0081 AUTHOR: ASHANTIDOC PHYSICIAN: REFERRING PHYSICIAN: JOY SHEN MD DATE OF SERVICE: 05/03/20 Discharge Plan Patient Name: MELISSA DICKENS Facility: [facility]:[place] : 1970 Planned Disposition: Psych facility Anticipated Discharge Date: Discharge Date: Expected LOS: Initial Reviewer: [email or web address] Initial Review Date: 05/03/2020 Generated: 05/03/20 3:30 pm Comments DCP- Discharge Planning Updated by [email or web address]: Gladys Velasco on 05/03/20 1:[address] Estelle at [facility] states they cannot accept Covid positive patient's until day 14. CM will continue to call dual diagnosis inpatient psychiatric facilities. DCP- Discharge Planning Updated by [id number]: Gladys Velasco on 05/03/20 12:[address] Patient Name: MELISSA DICKENS Admission Status: ER Accout number: [id number] Admission Date: 04-27-2020 : 1970 Admission Diagnosis:COVID-19 Attending: DAMION SHEN Current LOS: 6 Anticipated DC Date: Planned Disposition: Psych facility Primary Insurance: MEDICAID [place] Discharge Planning Comments: Cm called patient's room per COVID isolation protocol. Patient states she had been living at home with her mother. I informed her that her psychologist here recommends she goes to an inpatient psychiatric facility and she is agreeable to this. I have called [facility] and spoke with Alpa, she states no beds availability. [facility] states OK to send a referral, I faxed referral to Estelle at [facility]. [facility] take [facility]. [facility]. I will continue to call inpatient facilities for placement. Bank Vault Custodian: Gladys Velasco DCPIA - Discharge Planning Initial Assessment Updated by [email or web address]: Gladys Velasco on 05/03/20 1:12 pm * Is the patient Alert and Oriented? No * Preadmission Environment Home with Family * ADLs Independent Last DP export: 05/03/20 12:17 p Patient Name: MELISSA DICKENS Page [id number] at 1431 All edits/amendments must be made on the electronic document DICTATION DATE: 05/03/201430 SEED BUYER: HOLLEY 05/03/201430 RPT#: [id number] DC DATE: STATUS: ADM IN [facility] [address] [place] [address] END OF REPORT
--- NOTE | 2020-05-03 20:00 | NUR ---
INITIAL ROUNDS AND ASSESSMENT COMPLETED. PT RESTING IN BED WITH NO DISTRESS. NONLABORED RESPIRATIONS ON ROOM AIR. NO IV ACCESS. CALM AND COOPERATIVE AT THIS TIME.
--- NOTE | 2020-05-03 23:27 | NUR ---
ALL BED TIME MEDS HAVE BEEN GIVEN. PT COOPERATIVE.
[2020-05-04 04:32] VITALS: BP 114/51
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
[2020-05-04 07:09] VITALS: BP 130/83
--- NOTE | 2020-05-04 08:22 | NUR ---
AM MEDS GIVEN AT THIS TIME. PT A/O X3, RESP EVEN AND NONLABORED ON RA. NO IV ACCESS NOTED. PT DENIES ANY NEEDS AT THIS TIME. CALL LIGHT IN REACH, NAD NOTED,W ILL CONTINUE PLAN OF CARE.
[2020-05-04 11:48] VITALS: BP 125/69
--- NOTE | 2020-05-04 13:37 | NUR ---
PT RESTING COMFORTABLY IN BED, DENIES ANY NEEDS, CALL LIGHT IN REACH.
[2020-05-04 16:37] VITALS: BP 125/83
--- NOTE | 2020-05-04 20:14 | NUR ---
INITIAL ROUNDS AND ASSESSMENT COMPLETED. PT RESTING IN BED WITH NO DISTRESS. NONLABORED RESPIRATIONS ON ROOM AIR. NO IV ACCESS. VOICING NO NEEDS. CALL LIGHT IN REACH.
[2020-05-04 20:49] VITALS: BP 172/87
[2020-05-05] VITALS (7 sets, daily range): BP systolic 121–131; BP diastolic 68–88
--- NOTE | 2020-05-05 06:35 | NUR ---
NO CHANGE FROM INITIAL SHIFT ASSESSMENT. PT HAS RESTED THROUGH THE NIGHT. NONLABORED RESPIRATIONS ON ROOM AIR. INDEPENDENT WITH ADLS. CALL LIGHT IN REACH.
--- NOTE | 2020-05-05 12:56 | NUR ---
PT RESTING COMFORTABLY IN BED, WATCHING TV, DENIES ANY NEEDS, CALL LIGHT IN REACH.
--- NOTE | 2020-05-05 19:50 | NUR ---
INITIAL ROUNDS AND ASSESSMENT COMPLETED. PT RESTING IN BED. NO DISTRESS. CALL LIGHT IN REACH.
--- NOTE | 2020-05-05 22:06 | NUR ---
BEDTIME MEDS GIVEN. PT DENIES PAIN OR DISCOMFORT. FLAT AFFECT. MINIMAL INTERACTION. CALL LIGHT IN REACH.
--- NOTE | 2020-05-06 03:03 | NUR ---
RESTING IN BED WITH NO DISTRESS. CALL LIGHT IN REACH.
[2020-05-06 06:21] VITALS: BP 132/77
--- NOTE | 2020-05-06 08:33 | NUR ---
Nutrition Reassessment/Follow-up: PO intake improving; 75-100% reported over the weekend. Awaiting placement. Diet: Regular, Ensure TID PO intake: 96% avg x 6 meals Wt: 130# (04/29) Labs reviewed Meds noted: Protonix, Decadron, zinc sulfate, vit B1, vit C, vit D, electrolyte protocol -Nutrition needs unchanged. -Encourage PO intake and honor food preferences. -Need new wt. -RD will follow up within 4 days.
[2020-05-06 09:00] VITALS: BP 141/72
[2020-05-06 13:10] VITALS: BP 170/75
--- NOTE | 2020-05-06 14:40 | MORECARE ---
CASE MANAGEMENT DISCHARGE SUMMARY PATIENT: MELISSA DICKENS UNIT: [id number] ADM DATE: 04/27/20 AGE: 50 : 74 SEX: F ROOM/BED: D.9756 AUTHOR: ASHANTIDOC PHYSICIAN: REFERRING PHYSICIAN: JOY SHEN MD DATE OF SERVICE: 05/06/20 Discharge Plan Patient Name: MELISSA DICKENS Facility: [facility]:[place] : 1970 Planned Disposition: Psych facility Anticipated Discharge Date: Discharge Date: Expected LOS: Initial Reviewer: [id number] Initial Review Date: 05/03/2020 Generated: 05/06/20 3:39 pm Comments DCP- Discharge Planning Updated by [email or web address]: Claudia Bustamante on 05/06/20 1:[address] Patient Name: MELISSA DICKENS Admission Status: ER Accout number: [id number] Admission Date: 04-27-2020 : 1970 Admission Diagnosis:COVID-19 Attending: DAMION SHEN Current LOS: 9 Anticipated DC Date: Planned Disposition: Psych facility Primary Insurance: MEDICAID [place] Discharge Planning Comments: CM SPOKE WITH [facility] IN [place] AND THEY ARE NOT ACCEPTING ANY COVID POSITIVE PATIENTS. I AM SENDING UPDATED CLINICALS TO [facility]. THIS PATIENT WILL NOT BE ELIGABLE TO BE ACCEPTED TO [place] UNTIL COVID IS PAST 14 DAYS. IT WILL BE 14 DAYS 05/11/20. I WILL CONTINUE TO SEND UPDATES AND CHECK OTHER FACILITIES. CM TO FOLLOW AND ASSIST NEEDED. Core Piler: Claudia Bustamante DCP- Discharge Planning Updated by [email or web address]: Gladys Velasco on 05/03/20 1:[address] Estelle at [facility] states they cannot accept Covid positive patient's until day 14. CM will continue to call dual diagnosis inpatient psychiatric facilities. DCP- Discharge Planning Updated by [email or web address]: Gladys Velasco on 05/03/20 12:[address] Patient Name: MELISSA DICKENS Admission Status: ER Accout number: [id number] Admission Date: 04-27-2020 : 1970 Admission Diagnosis:COVID-19 Attending: DAMION SHEN Current LOS: 6 Anticipated DC Date: Planned Disposition: Psych facility Primary Insurance: MEDICAID [place] Discharge Planning Comments: Cm called patient's room per COVID isolation protocol. Patient states she had been living at home with her mother. I informed her that her psychologist here recommends she goes to an inpatient psychiatric facility and she is agreeable to this. I have called [facility] and spoke with Alpa, she states no beds availability. [facility] states OK to send a referral, I faxed referral to Estelle at [facility]. [facility] patients. [facility] does not take Covid positive patients. I will continue to call inpatient facilities for placement. Core Piler: Gladys Velasco DCPIA - Discharge Planning Initial Assessment Updated by [email or web address]: Gladys Velasco on 05/03/20 1:12 pm * Is the patient Alert and Oriented? No * Preadmission Environment Home with Family * ADLs Independent Last DP export: 05/03/20 1:31 p Patient Name: MELISSA DICKENS Page [id number] at 1440 All edits/amendments must be made on the electronic document DICTATION DATE: 05/06/20 143 SPECIMEN TRANSPORTER: HOLLEY 05/06/20 143 RPT#: [id number] OK DATE: STATUS: ADM IN [facility] [address] [place] [address] END OF REPORT
[2020-05-06 16:12] VITALS: BP 120/72
--- NOTE | 2020-05-06 23:43 | NUR ---
I have reviewed this patient and I concur with the Shift Assessment completed by the Licensed Practical Nurse today this shift.
--- NOTE | 2020-05-07 01:41 | NUR ---
RESTING WITH RESPERATINS EVEN, NO S/S DISTRESS NOTED.
[2020-05-07 05:11] VITALS: BP 133/76
[2020-05-07 07:15] VITALS: BP 124/93
[2020-05-07 07:55] LABS: CALC OSMOLALITY 280 mosm/kg (275-300); CALCIUM 8.6 mg/dL (8.5-10.1); CARBON DIOXIDE 27.4 mmol/L (21.0-32.0); CHLORIDE - SERUM 108 mmol/L (98-107); CREATININE - SERUM 0.8 mg/dL (0.6-1.3); GLUCOSE 89 mg/dL (74-106); POTASSIUM - SERUM 3.4 mmol/L (3.5-5.1); SODIUM 141 mmol/L (136-145); UREA NITROGEN 14 mg/dL (7-18); eGFR NON AFRICAN AMERICAN 81 mL/min (90-120)
--- NOTE | 2020-05-07 07:58 | NUR ---
AM ROUNDING DONE WITH PATIENT AWAKE WATCHING TV. DENIES NEEDS AT THIS TIME. ON ROOM AIR. NO IV SEEN. WILL MONITOR.
[2020-05-07 08:28] LABS: BASOPHILS 0.2 % (0-2); EOSINOPHILS 0 % (0-7); HEMATOCRIT 38.4 % (36.0-48.0); HEMOGLOBIN 13.5 g/dL (12-16); IMMATURE GRANULOCYTES 0.2 % (0-5); LYMPHOCYTE ABS# 1.63 10x3/uL (1.18-3.74); LYMPHOCYTES 33.5 % (15-50); MCH 28.8 pg (26.0-34.0); MCHC 35.2 g/dL (31.0-37.0); MCV 82.1 fL (80.0-100.0); MONOCYTES 8.8 % (2-11); NEUTROPHIL ABS# 2.78 10x3/uL (1.56-6.13); NEUTROPHILS 57.3 % (40-80); PLATELET COUNT 152 10x3/uL (130-400); RBC 4.68 10x6/uL (4.00-5.40); RDW 14.2 % (11.5-14.5); WBC 4.9 10x3/uL (4.8-10.8)
[2020-05-07 11:15] VITALS: BP 125/69
[2020-05-07 16:29] VITALS: BP 124/74
--- NOTE | 2020-05-08 04:02 | NUR ---
I have reviewed this patient and I concur with the Shift Assessment completed by the Licensed Practical Nurse today this shift.
[2020-05-08 05:24] VITALS: BP 119/75
[2020-05-08 07:03] LABS: ALBUMIN 2.8 g/dL (3.4-5.0); ALKALINE PHOSPHATASE 78 U/L (30-120); ALT (SGPT) 53 U/L (10-68); BILIRUBIN - TOTAL 0.09 mg/dL (0.2-1.3); CALC OSMOLALITY 274 mosm/kg (275-300); CALCIUM 8.1 mg/dL (8.5-10.1); CARBON DIOXIDE 25.8 mmol/L (21.0-32.0); CHLORIDE - SERUM 106 mmol/L (98-107); CREATININE - SERUM 0.8 mg/dL (0.6-1.3); GLUCOSE 91 mg/dL (74-106); MAGNESIUM - SERUM 1.9 mg/dL (1.8-2.4); PHOSPHOROUS 3.5 mg/dL (2.5-4.9); POTASSIUM - SERUM 3.8 mmol/L (3.5-5.1); PROTEIN - SERUM 6.5 g/dL (6.4-8.2); SODIUM 137 mmol/L (136-145); UREA NITROGEN 14 mg/dL (7-18); eGFR NON AFRICAN AMERICAN 81 mL/min (90-120)
[2020-05-08 07:48] LABS: BASOPHILS 0.2 % (0-2); EOSINOPHILS 0 % (0-7); HEMATOCRIT 37.2 % (36.0-48.0); IMMATURE GRANULOCYTES 0.4 % (0-5); LYMPHOCYTE ABS# 1.79 10x3/uL (1.18-3.74); LYMPHOCYTES 33.2 % (15-50); MCH 28.7 pg (26.0-34.0); MCHC 34.9 g/dL (31.0-37.0); MCV 82.1 fL (80.0-100.0); MONOCYTES 9.5 % (2-11); NEUTROPHIL ABS# 3.06 10x3/uL (1.56-6.13); NEUTROPHILS 56.7 % (40-80); PLATELET COUNT 158 10x3/uL (130-400); RBC 4.53 10x6/uL (4.00-5.40); RDW 14.2 % (11.5-14.5); WBC 5.4 10x3/uL (4.8-10.8)
--- NOTE | 2020-05-08 07:52 | NUR ---
AM ROUNDING DONE WITH PATIENT REQUESTING [facility]. ALL WE HAVE AT THIS TIME IS DIET, TAKEN. ON ROOM AIR. NO IV ACCESS. WILL CPOC AND MONITOR.
[2020-05-08 08:00] VITALS: BP 138/89
--- NOTE | 2020-05-08 10:30 | NUR ---
RECEIVE SHIFT REPORT. RESTING IN BED WITH EYES CLOSED. NO IV ACCESS. AWAITING PLACEMENT. CALL LIGHT IN REACH. WILL CONTINUE POC AND SAFETY PRECAUTIONS.
[2020-05-08 12:00] VITALS: BP 131/92
--- NOTE | 2020-05-08 13:49 | MORECARE ---
CASE MANAGEMENT DISCHARGE SUMMARY PATIENT: MELISSA DICKENS UNIT: [id number] ADM DATE: 04/27/20 AGE: 50 : 74 SEX: F ROOM/BED: D.6390 AUTHOR: ASHANTIDOC PHYSICIAN: REFERRING PHYSICIAN: JOY SHEN MD DATE OF SERVICE: 05/08/20 Discharge Plan Patient Name: MELISSA DICKENS Facility: [facility]:[place] : 1970 Planned Disposition: Psych facility Anticipated Discharge Date: Discharge Date: Expected LOS: Initial Reviewer: [email or web address] Initial Review Date: 05/03/2020 Generated: 05/08/20 2:48 pm Comments DCP- Discharge Planning Updated by [id number]: Gladys Velasco on 05/08/20 12:[address] CM called [facility] and spoke with Glenny. [facility] states they will not have an opening until Wednesday and to send a whole new referral on Wednesday. Possible discharge to [facility] on Wednesday. DCP- Discharge Planning Updated by [id number]: Claudia Bustamante on 05/06/20 1:[address] Patient Name: MELISSA DICKENS Admission Status: ER Accout number: [id number] Admission Date: 04-27-2020 : 1970 Admission Diagnosis:COVID-19 Attending: DAMION SHEN Current LOS: 9 Anticipated DC Date: Planned Disposition: Psych facility Primary Insurance: MEDICAID [place] Discharge Planning Comments: CM SPOKE WITH [facility] IN [place] AND THEY ARE NOT ACCEPTING ANY COVID POSITIVE PATIENTS. I AM SENDING UPDATED CLINICALS TO [facility]. THIS PATIENT WILL NOT BE ELIGABLE TO BE ACCEPTED TO [place] UNTIL COVID IS PAST 14 DAYS. IT WILL BE 14 DAYS 05/11/20. I WILL CONTINUE TO SEND UPDATES AND CHECK OTHER FACILITIES. CM TO FOLLOW AND ASSIST NEEDED. Utility Maintenance Worker: Claudia Bustamante DCP- Discharge Planning Updated by [email or web address]: Gladys Velasco on 05/03/20 1:[address] Estelle at [facility] states they cannot accept Covid positive patient's until day 14. CM will continue to call dual diagnosis inpatient psychiatric facilities. DCP- Discharge Planning Updated by [email or web address]: Gladys Velasco on 05/03/20 12:[address] Patient Name: MELISSA DICKENS Admission Status: ER Accout number: [id number] Admission Date: 04-27-2020 : 1970 Admission Diagnosis:COVID-19 Attending: DAMION SHEN Current LOS: 6 Anticipated DC Date: Planned Disposition: Psych facility Primary Insurance: MEDICAID [place] Discharge Planning Comments: Cm called patient's room per COVID isolation protocol. Patient states she had been living at home with her mother. I informed her that her psychologist here recommends she goes to an inpatient psychiatric facility and she is agreeable to this. I have called [facility] and spoke with Alpa, she states no beds availability. [facility] states OK to send a referral, I faxed referral to Estelle at [facility]. [facility] Cov[facility] positive patients. [facility] does not take Covid positive patients. I will continue to call inpatient facilities for placement. Utility Maintenance Worker: Gladys Velasco DCPIA - Discharge Planning Initial Assessment Updated by [id number]: Gladys Velasco on 05/03/20 1:12 pm * Is the patient Alert and Oriented? No * Preadmission Environment Home with Family * ADLs Independent Last DP export: 05/06/20 1:40 p Patient Name: MELISSA DICKENS Page 97822 at 1349 All edits/amendments must be made on the electronic document DICTATION DATE: 05/08/20 1348 LIFE INSURANCE ACTUARY: HOLLEY 05/08/20 1348 RPT#: [id number] DC DATE: STATUS: ADM IN [place] [address] [place] [address] END OF REPORT
[2020-05-08 15:00] VITALS: BP 136/86
--- NOTE | 2020-05-08 17:19 | NUR ---
SITTING UP ON SIDE OF BED EATING DINNER. STATES SHE WOULD LIKE A SUNKIST DRINK. WILL ORDER FROM DIETARY. DENIES ANY OTHER NEEDS. CALL LIGHT IN REACH. WILL CONTINUE POC AND SAFETY PRECAUTIONS.
[2020-05-08 22:11] VITALS: BP 132/84
[2020-05-09] VITALS: BP 109/68
--- NOTE | 2020-05-09 02:36 | NUR ---
I have reviewed this patient and I concur with the Shift Assessment completed by the Licensed Practical Nurse today this shift.
[2020-05-09 05:16] VITALS: BP 118/62
[2020-05-09 06:09] LABS: ALBUMIN 2.7 g/dL (3.4-5.0); ALKALINE PHOSPHATASE 77 U/L (30-120); ALT (SGPT) 56 U/L (10-68); BILIRUBIN - TOTAL 0.09 mg/dL (0.2-1.3); CALC OSMOLALITY 280 mosm/kg (275-300); CALCIUM 8.2 mg/dL (8.5-10.1); CARBON DIOXIDE 26.8 mmol/L (21.0-32.0); CHLORIDE - SERUM 108 mmol/L (98-107); CREATININE - SERUM 0.8 mg/dL (0.6-1.3); GLUCOSE 93 mg/dL (74-106); MAGNESIUM - SERUM 2.1 mg/dL (1.8-2.4); PHOSPHOROUS 4.2 mg/dL (2.5-4.9); POTASSIUM - SERUM 3.6 mmol/L (3.5-5.1); PROTEIN - SERUM 6.5 g/dL (6.4-8.2); SODIUM 140 mmol/L (136-145); eGFR NON AFRICAN AMERICAN 81 mL/min (90-120)
[2020-05-09 06:12] LABS: UREA NITROGEN 18 mg/dL (7-18)
[2020-05-09 06:47] LABS: BASOPHILS 0.2 % (0-2); EOSINOPHILS 0 % (0-7); HEMATOCRIT 36.3 % (36.0-48.0); HEMOGLOBIN 12.7 g/dL (12-16); IMMATURE GRANULOCYTES 0.3 % (0-5); LYMPHOCYTE ABS# 1.82 10x3/uL (1.18-3.74); LYMPHOCYTES 28.9 % (15-50); MCH 28.9 pg (26.0-34.0); MCV 82.5 fL (80.0-100.0); MONOCYTES 8.3 % (2-11); NEUTROPHIL ABS# 3.93 10x3/uL (1.56-6.13); NEUTROPHILS 62.3 % (40-80); PLATELET COUNT 154 10x3/uL (130-400); RDW 14.5 % (11.5-14.5); WBC 6.3 10x3/uL (4.8-10.8)
--- NOTE | 2020-05-09 07:04 | NUR ---
RECEIVE SHIFT REPORT. RESTING IN BED WITH EYES CLOSED. NO S/S OF DISTRESS PRESENT. NO IV ACCESS. WILL CONTINUE POC AND SAFETY PRECAUTIONS.
--- NOTE | 2020-05-09 08:11 | NUR ---
Nutrition Follow-up: Good PO intake reported. Covid+; RA. Awaiting placement. Diet: Regular, Ensure TID PO intake: 82% avg x 11 meals Wt: 130# (04/29) Labs noted: Ca 8.2, Alb 2.7 Meds noted: Protonix, Decadron, zinc sulfate, vit B1, vit C, vit D, electrolyte protocol -Encourage PO intake and honor food preferences within diet restrictions. -RD will follow up within 5-7 days.
[2020-05-09 08:42] VITALS: BP 118/63
[2020-05-09 11:18] VITALS: BP 129/73
[2020-05-09 15:51] VITALS: BP 124/71
[2020-05-09 19:24] VITALS: BP 123/64
--- NOTE | 2020-05-10 05:18 | NUR ---
PT RESTED QUIETLY DURING THE NIGHT. DENIES NEEDS. RR EVEN AND UNLABORED. NO DISTRESS OBSERVED. CL IN REACH. LINDA CPOC.
[2020-05-10 05:41] VITALS: BP 120/73
[2020-05-10 06:28] LABS: BASOPHILS 0.2 % (0-2); EOSINOPHILS 0 % (0-7); HEMATOCRIT 36.6 % (36.0-48.0); HEMOGLOBIN 12.5 g/dL (12-16); IMMATURE GRANULOCYTES 0.5 % (0-5); LYMPHOCYTE ABS# 1.91 10x3/uL (1.18-3.74); LYMPHOCYTES 31.1 % (15-50); MCH 28.3 pg (26.0-34.0); MCHC 34.2 g/dL (31.0-37.0); MCV 82.8 fL (80.0-100.0); MONOCYTES 7.8 % (2-11); NEUTROPHIL ABS# 3.71 10x3/uL (1.56-6.13); NEUTROPHILS 60.4 % (40-80); PLATELET COUNT 171 10x3/uL (130-400); RBC 4.42 10x6/uL (4.00-5.40); RDW 14.4 % (11.5-14.5); WBC 6.1 10x3/uL (4.8-10.8)
[2020-05-10 06:59] LABS: ALBUMIN 2.7 g/dL (3.4-5.0); ANION GAP 9.8 mmol/L (8-16); BILIRUBIN - TOTAL 0.15 mg/dL (0.2-1.3); CALCIUM 8.3 mg/dL (8.5-10.1); CARBON DIOXIDE 25.8 mmol/L (21.0-32.0); CREATININE - SERUM 0.9 mg/dL (0.6-1.3); MAGNESIUM - SERUM 1.9 mg/dL (1.8-2.4); PHOSPHOROUS 4.6 mg/dL (2.5-4.9); POTASSIUM - SERUM 3.6 mmol/L (3.5-5.1); PROTEIN - SERUM 6.4 g/dL (6.4-8.2)
--- NOTE | 2020-05-10 07:15 | NUR ---
RECEIVE SHIFT REPORT. RESTING IN BED WITH EYES CLOSED. NO S/S OF DISTRESS PRESENT AT THIS TIME. WILL CONTINUE POC AND SAFETY PRECAUTIONS. AWAITING PSYCH PLACEMENT.
[2020-05-10 08:51] VITALS: BP 143/68
[2020-05-10 11:36] VITALS: BP 121/69
[2020-05-10 15:58] VITALS: BP 122/73
--- NOTE | 2020-05-10 16:12 | NUR ---
TRIED TO CALL PATIENT MOTHER BACK TO GIVE UPDATE. NO ANSWER
[2020-05-10 21:00] VITALS: BP 121/63
[2020-05-11 01:00] VITALS: BP 130/62
[2020-05-11 04:51] VITALS: BP 142/79
--- NOTE | 2020-05-11 08:00 | NUR ---
PT RECEIVED AWAKE AND ALERT SITTING ON SIDE OF BED. ASKING FOR AN NEW BRIEF. MEDS GIVEN AND BREAKFAST DELIVERED.
[2020-05-11 08:32] LABS: BASOPHILS 0.1 % (0-2); EOSINOPHILS 0 % (0-7); HEMATOCRIT 39.2 % (36.0-48.0); HEMOGLOBIN 13.5 g/dL (12-16); IMMATURE GRANULOCYTES 0.3 % (0-5); LYMPHOCYTE ABS# 1.55 10x3/uL (1.18-3.74); LYMPHOCYTES 19.5 % (15-50); MCH 28.2 pg (26.0-34.0); MCHC 34.4 g/dL (31.0-37.0); MONOCYTES 10.1 % (2-11); NEUTROPHIL ABS# 5.57 10x3/uL (1.56-6.13); PLATELET COUNT 166 10x3/uL (130-400); RBC 4.78 10x6/uL (4.00-5.40); RDW 14.4 % (11.5-14.5)
[2020-05-11 08:40] VITALS: BP 128/79
[2020-05-11 08:51] LABS: ALKALINE PHOSPHATASE 83 U/L (30-120); ALT (SGPT) 55 U/L (10-68); BILIRUBIN - TOTAL 0.17 mg/dL (0.2-1.3); CALC OSMOLALITY 277 mosm/kg (275-300); CALCIUM 8.6 mg/dL (8.5-10.1); CARBON DIOXIDE 26.5 mmol/L (21.0-32.0); CHLORIDE - SERUM 104 mmol/L (98-107); CREATININE - SERUM 0.7 mg/dL (0.6-1.3); GLUCOSE 89 mg/dL (74-106); MAGNESIUM - SERUM 1.9 mg/dL (1.8-2.4); POTASSIUM - SERUM 3.7 mmol/L (3.5-5.1); PROTEIN - SERUM 6.9 g/dL (6.4-8.2); SODIUM 139 mmol/L (136-145); UREA NITROGEN 14 mg/dL (7-18); eGFR NON AFRICAN AMERICAN > 90 mL/min (90-120)
[2020-05-11 11:44] VITALS: BP 96/53
[2020-05-11 16:01] VITALS: BP 115/63
[2020-05-11 20:30] VITALS: BP 125/62
[2020-05-12 00:30] VITALS: BP 130/85
[2020-05-12 04:30] VITALS: BP 127/64
--- NOTE | 2020-05-12 06:35 | NUR ---
PT HAS RESTED WITH NO DISTRESS THIS SHIFT. NO CHANGE FROM SHIFT ASSESSMENT. CALL LIGHT IN REACH.
[2020-05-12 06:40] LABS: BASOPHILS 0.1 % (0-2); EOSINOPHILS 0 % (0-7); HEMATOCRIT 37.3 % (36.0-48.0); HEMOGLOBIN 12.9 g/dL (12-16); IMMATURE GRANULOCYTES 0.3 % (0-5); LYMPHOCYTE ABS# 1.49 10x3/uL (1.18-3.74); LYMPHOCYTES 21.3 % (15-50); MCH 28.4 pg (26.0-34.0); MCHC 34.6 g/dL (31.0-37.0); MONOCYTES 11.4 % (2-11); NEUTROPHIL ABS# 4.67 10x3/uL (1.56-6.13); NEUTROPHILS 66.9 % (40-80); PLATELET COUNT 168 10x3/uL (130-400); RBC 4.55 10x6/uL (4.00-5.40); RDW 14.5 % (11.5-14.5)
[2020-05-12 06:58] LABS: ALBUMIN 2.9 g/dL (3.4-5.0); ALKALINE PHOSPHATASE 76 U/L (30-120); ALT (SGPT) 58 U/L (10-68); BILIRUBIN - TOTAL 0.25 mg/dL (0.2-1.3); CALC OSMOLALITY 282 mosm/kg (275-300); CALCIUM 8.7 mg/dL (8.5-10.1); CARBON DIOXIDE 23.8 mmol/L (21.0-32.0); CHLORIDE - SERUM 104 mmol/L (98-107); CREATININE - SERUM 0.7 mg/dL (0.6-1.3); GLUCOSE 87 mg/dL (74-106); MAGNESIUM - SERUM 2.1 mg/dL (1.8-2.4); PHOSPHOROUS 4.3 mg/dL (2.5-4.9); POTASSIUM - SERUM 3.7 mmol/L (3.5-5.1); PROTEIN - SERUM 6.7 g/dL (6.4-8.2); SODIUM 141 mmol/L (136-145); UREA NITROGEN 20 mg/dL (7-18); eGFR NON AFRICAN AMERICAN > 90 mL/min (90-120)
[2020-05-12 08:00] VITALS: BP 118/66
[2020-05-12 11:38] VITALS: BP 118/70
[2020-05-12 16:00] VITALS: BP 129/66
--- NOTE | 2020-05-12 20:00 | NUR ---
INITIAL ROUNDS AND ASSESSMENT COMPLETED. PT RESTING IN BED WITH EYES CLOSED. ROUSES TO CALLING OF HER NAME, BUT TRIES TO FALL BACK TO SLEEP EASILY. NO DISTRESS. NO IV. ROOM AIR. CALL LIGHT IN REACH.
[2020-05-12 20:14] VITALS: BP 126/57
--- NOTE | 2020-05-12 23:00 | NUR ---
ALL BEDTIME MEDS HAVE BEEN GIVEN. PT WILL ANSWER QUESTIONS, BUT IS VERY LIMITED IN HER INTERACTIONS WITH STAFF. SHE DID ASK IF HER MOTHER COULD BE CALLED BY HER DOCTORS TO TALK ABOUT HER DISCHARGE AND GOING HOME. WILL HAVE CASEMANAGEMENT FOLLOWUP WITH PATIENT AND HER MOTHER WITH THEIR QUESTIONS
[2020-05-13 00:50] VITALS: BP 117/57
--- NOTE | 2020-05-13 05:14 | NUR ---
NO CHANGE FROM INITIAL SHIFT ASSESSMENT. PT HAS RESTED WITH NO DISTRESS. CALL LIGHT IN REACH.
--- NOTE | 2020-05-13 05:35 | NUR ---
I have reviewed this patient and I concur with the Shift Assessment completed by the Licensed Practical Nurse today this shift.
[2020-05-13 08:00] VITALS: BP 123/70
[2020-05-13 09:05] LABS: ALBUMIN 2.8 g/dL (3.4-5.0); ALKALINE PHOSPHATASE 78 U/L (30-120); ALT (SGPT) 55 U/L (10-68); BILIRUBIN - TOTAL 0.15 mg/dL (0.2-1.3); CALC OSMOLALITY 277 mosm/kg (275-300); CALCIUM 8.7 mg/dL (8.5-10.1); CARBON DIOXIDE 26.1 mmol/L (21.0-32.0); CHLORIDE - SERUM 105 mmol/L (98-107); CREATININE - SERUM 0.8 mg/dL (0.6-1.3); GLUCOSE 88 mg/dL (74-106); POTASSIUM - SERUM 3.5 mmol/L (3.5-5.1); PROTEIN - SERUM 6.8 g/dL (6.4-8.2); SODIUM 139 mmol/L (136-145); UREA NITROGEN 16 mg/dL (7-18); eGFR NON AFRICAN AMERICAN 81 mL/min (90-120)
[2020-05-13 09:20] LABS: BASOPHILS 0.1 % (0-2); EOSINOPHILS 0 % (0-7); HEMATOCRIT 38.3 % (36.0-48.0); HEMOGLOBIN 13.4 g/dL (12-16); IMMATURE GRANULOCYTES 0.4 % (0-5); LYMPHOCYTE ABS# 1.68 10x3/uL (1.18-3.74); LYMPHOCYTES 20.6 % (15-50); MCH 29.1 pg (26.0-34.0); MCV 83.3 fL (80.0-100.0); MONOCYTES 8.7 % (2-11); NEUTROPHIL ABS# 5.73 10x3/uL (1.56-6.13); NEUTROPHILS 70.2 % (40-80); PLATELET COUNT 159 10x3/uL (130-400); RDW 14.7 % (11.5-14.5); WBC 8.2 10x3/uL (4.8-10.8)
[2020-05-13 11:00] VITALS: BP 124/72
--- NOTE | 2020-05-13 12:11 | MORECARE ---
CASE MANAGEMENT DISCHARGE SUMMARY PATIENT: MELISSA DICKENS UNIT: [id number] ADM DATE: 04/27/20 AGE: 50 : 74 SEX: F ROOM/BED: D.9651 AUTHOR: ASHANTI,DOC PHYSICIAN: REFERRING PHYSICIAN: JOY SHEN MD DATE OF SERVICE: 05/13/20 Discharge Plan Patient Name: MELISSA DICKENS Facility: [facility]:[place] : 1970 Planned Disposition: Psych facility Anticipated Discharge Date: Discharge Date: Expected LOS: Initial Reviewer: [email or web address] Initial Review Date: 05/03/2020 Generated: 05/13/20 1:10 pm Comments DCP- Discharge Planning Updated by [id number]: Alyse Tejeda on 05/13/20 11:[address] Psych re-eval is still stating patient is needing psych placement CM will send out referral packets out today for placement. DCP- Discharge Planning Updated by [id number]: Alyse Tejeda on 05/13/20 11:[address] LATE ENTRY 05/11/20 CM called [facility] to check status of bed availability. CM was told to send over new packet and they would call back with determination later today. CM received a call back @ [phone] that patient was denied. The nurse stated that the packet was reviewed by the medical doctor md/medical director and unit educator and they denied acceptance. CM wasn't given any explanation as to why she was denied. CM spoke with Georgia HAWTHORNE about getting a psych re-eval to see if patient is still requiring psych placement since the last note was on 04/30/20. CM will continue to follow and assist with discharge planning / needs. DCP- Discharge Planning Updated by [id number]: Gladys Velasco on 05/08/20 12:[address] CM called [facility] and spoke with Glenny. [facility]enny states they will not have an opening until Wednesday and to send a whole new referral on Wednesday. Possible discharge to [facility] on Wednesday. DCP- Discharge Planning Updated by [email or web address]: Claudia Bustamante on 05/06/20 1:[address] Patient Name: MELISSA DICKENS Admission Status: ER Accout number: [id number] Admission Date: 04-27-2020 : 1970 Admission Diagnosis:COVID-19 Attending: DAMION SHEN Current LOS: 9 Anticipated DC Date: Planned Disposition: Psych facility Primary Insurance: [place]ID [place] Discharge Planning Comments: [facility] [place] AND THEY ARE NOT ACCEPTING ANY COVID POSITIVE PATIENTS. I AM SENDING UPDATED CLINICALS TO [facility]. THIS PATIENT WILL NOT BE ELIGABLE TO BE ACCEPTED TO [place] UNTIL COVID IS PAST 14 DAYS. IT WILL BE 14 DAYS 05/11/20. I WILL CONTINUE TO SEND UPDATES AND CHECK OTHER FACILITIES. CM TO FOLLOW AND ASSIST NEEDED. Thaw Shed Heater Tender: Claudia Bustamante DCP- Discharge Planning Updated by [id number]: Gladys Velasco on 05/03/20 1:[address] Estelle at [facility] states they cannot accept Covid positive patient's until day 14. CM will continue to call dual diagnosis inpatient psychiatric facilities. DCP- Discharge Planning Updated by [id number]: Gladys Velasco on 05/03/20 12:[address] Patient Name: MELISSA DICKENS Admission Status: ER Accout number: [id number] Admission Date: 04-27-2020 : 1970 Admission Diagnosis:COVID-19 Attending: DAMION SHEN Current LOS: 6 Anticipated DC Date: Planned Disposition: Psych facility Primary Insurance: [place]ID [place] Discharge Planning Comments: Cm called patient's room per COVID isolation protocol. Patient states she had been living at home with her mother. I informed her that her psychologist here recommends she goes to an inpatient psychiatric facility and she is agreeable to this. I have called [facility] and spoke with Alpa, she states no beds availability. [place] states OK to send a referral, I faxed referral to Estelle at [place]. [facility] not take Covid positive patients. [facility] does not take Covid positive patients. I will continue to call inpatient facilities for placement. Thaw Shed Heater Tender: Gladys Velasco DCPIA - Discharge Planning Initial Assessment Updated by [email or web address]: Gladys Velasco on 05/03/20 1:12 pm * Is the patient Alert and Oriented? No * Preadmission Environment Home with Family * ADLs Independent Last DP export: 05/08/20 12:49 p Patient Name: MELISSA DICKENS Page 55411 at 1211 All edits/amendments must be made on the electronic document DICTATION DATE: 05/13/201210 COFFEE SOMMELIER: HOLLEY 05/13/201210 RPT#: [id number] DC DATE: STATUS: ADM IN [facility] [address] [place] [address] END OF REPORT
[2020-05-13 14:40] VITALS: BP 120/70
--- NOTE | 2020-05-13 17:37 | MORECARE ---
CASE MANAGEMENT DISCHARGE SUMMARY PATIENT: MELISSA DICKENS UNIT: [id number] ADM DATE: 04/27/20 AGE: 50 : 74 SEX: F ROOM/BED: D.8352 AUTHOR: ASHANTI,DOC PHYSICIAN: REFERRING PHYSICIAN: JOY SHEN MD DATE OF SERVICE: 05/13/20 Discharge Plan Patient Name: MELISSA DICKENS Facility: [facility]:[place] : 1970 Planned Disposition: Psych facility Anticipated Discharge Date: Discharge Date: Expected LOS: Initial Reviewer: [email or web address] Initial Review Date: 05/03/2020 Generated: 05/13/20 6:36 pm Comments DCP- Discharge Planning Updated by [email or web address]: Alyse Tejeda on 05/13/20 11:[address] Psych re-eval is still stating patient is needing psych placement CM will send out referral packets out today for placement. DCP- Discharge Planning Updated by [email or web address]: Alyse Tejeda on 05/13/20 11:[address] LATE ENTRY 05/11/20 CM called [facility] to check status of bed availability. CM was told to send over new packet and they would call back with determination later today. CM received a call back @ [phone] that patient was denied. The nurse stated that the packet was reviewed by the medical staff specialist and health unit coordinator and they denied acceptance. CM wasn't given any explanation as to why she was denied. CM spoke with Georgia HAWTHORNE about getting a psych re-eval to see if patient is still requiring psych placement since the last note was on 04/30/20. CM will continue to follow and assist with discharge planning / needs. DCP- Discharge Planning Updated by [id number]: Gladys Velasco on 05/08/20 12:[address] CM called [facility] and spoke with Gl[facility]. [facility] states they will not have an opening until Wednesday and to send a whole new referral on Wednesday. Possible discharge to [facility] on Wednesday. DCP- Discharge Planning Updated by [email or web address]: Claudia Bustamante on 05/06/20 1:[address] Patient Name: MELISSA DICKENS Admission Status: ER Accout number: [id number] Admission Date: 04-27-2020 : 1970 Admission Diagnosis:COVID-19 Attending: DAMION SHEN Current LOS: 9 Anticipated DC Date: Planned Disposition: Psych facility Primary Insurance: [place]ID [place] Discharge Planning Comments: CM SPOKE [facility] [place] AND THEY ARE NOT ACCEPTING ANY COVID POSITIVE PATIENTS. I AM SENDING UPDATED CLINICALS TO [facility]. THIS PATIENT WILL NOT BE ELIGABLE TO BE ACCEPTED TO [place] UNTIL COVID IS PAST 14 DAYS. IT WILL BE 14 DAYS 05/11/20. I WILL CONTINUE TO SEND UPDATES AND CHECK OTHER FACILITIES. CM TO FOLLOW AND ASSIST NEEDED. Steel Tier: Claudia Bustamante DCP- Discharge Planning Updated by [id number]: Gladys Velasco on 05/03/20 1:[address] [facility] at [facility] states they cannot accept Covid positive patient's until day 14. CM will continue to call dual diagnosis inpatient psychiatric facilities. DCP- Discharge Planning Updated by [id number]: Gladys Velasco on 05/03/20 12:[address] Patient Name: MELISSA DICKENS Admission Status: ER Accout number: [id number] Admission Date: 04-27-2020 : 1970 Admission Diagnosis:COVID-19 Attending: DAMION SHEN Current LOS: 6 Anticipated DC Date: Planned Disposition: Psych facility Primary Insurance: [place] Discharge Planning Comments: Cm called patient's room per COVID isolation protocol. Patient states she had been living at home with her mother. I informed her that her psychologist here recommends she goes to an inpatient psychiatric facility and she is agreeable to this. I have called [facility] and spoke with Alpa, she states no beds availability. [place] states OK to send a referral, I faxed referral to Estelle at [place]. [facility] does not take Covid positive patients. [facility] does not take Covid positive patients. I will continue to call inpatient facilities for placement. Steel Tier: Gladys Velasco DCPIA - Discharge Planning Initial Assessment Updated by [id number]: Gladys Velasco on 05/03/20 1:12 pm * Is the patient Alert and Oriented? No * Preadmission Environment Home with Family * ADLs Independent External Providers External Provider: [facility] ([facility] Adult [facility]) Next Contact Date: Service Request Date: Service Type: Resolution: Reviewer: Comments: Last DP export: 05/13/20 11:11 a Patient Name: MELISSA DICKENS Page [id number] at 1737 All edits/amendments must be made on the electronic document DICTATION DATE: 05/13/201735 BARREL BUILDER: HOLLEY 05/13/201735 RPT#: [id number] DC DATE: STATUS: ADM IN [facility] [address] [place] [address] END OF REPORT
--- NOTE | 2020-05-13 17:57 | MORECARE ---
CASE MANAGEMENT DISCHARGE SUMMARY PATIENT: MELISSA DICKENS UNIT: [id number] ADM DATE: 04/27/20 AGE: 50 : 74 SEX: F ROOM/BED: D.2459 AUTHOR: ASHANTI,DOC PHYSICIAN: REFERRING PHYSICIAN: JOY SHEN MD DATE OF SERVICE: 05/13/20 Discharge Plan Patient Name: MELISSA DICKENS Facility: [facility]:[place] : 1970 Planned Disposition: Psych facility Anticipated Discharge Date: Discharge Date: Expected LOS: Initial Reviewer: [email or web address] Initial Review Date: 05/03/2020 Generated: 05/13/20 6:57 pm Comments DCP- Discharge Planning Updated by [email or web address]: Alyse Tejeda on 05/13/20 11:[address] Psych re-eval is still stating patient is needing psych placement CM will send out referral packets out today for placement. DCP- Discharge Planning Updated by [id number]: Alyse Tejeda on 05/13/20 11:[address] LATE ENTRY 05/11/20 CM called [facility] to check status of bed availability. CM was told to send over new packet and they would call back with determination later today. CM received a call back @ [phone] that patient was denied. The nurse stated that the packet was reviewed by the medical associate and sustainable communities designer and they denied acceptance. CM wasn't given any explanation as to why she was denied. CM spoke with Georgia HAWTHORNE about getting a psych re-eval to see if patient is still requiring psych placement since the last note was on 04/30/20. CM will continue to follow and assist with discharge planning / needs. DCP- Discharge Planning Updated by [email or web address]: Gladys Velasco on 05/08/20 12:[address] CM called [facility] and spoke with Gl[facility]. [facility] states they will not have an opening until Wednesday and to send a whole new referral on Wednesday. Possible discharge to [facility] on Wednesday. DCP- Discharge Planning Updated by [id number]: lCaudia Bustamante on 05/06/20 1:[address] Patient Name: MELISSA DICKENS Admission Status: ER Accout number: [id number] Admission Date: 04-27-2020 : 1970 Admission Diagnosis:COVID-19 Attending: DAMION SHEN Current LOS: 9 Anticipated DC Date: Planned Disposition: Psych facility Primary Insurance: [place] Discharge Planning Comments: CM SPOKE [facility] [place] AND THEY ARE NOT ACCEPTING ANY COVID POSITIVE PATIENTS. I AM SENDING UPDATED CLINICALS TO [facility]. THIS PATIENT WILL NOT BE ELIGABLE TO BE ACCEPTED TO [place] UNTIL COVID IS PAST 14 DAYS. IT WILL BE 14 DAYS 05/11/20. I WILL CONTINUE TO SEND UPDATES AND CHECK OTHER FACILITIES. CM TO FOLLOW AND ASSIST NEEDED. Traffic Recorder: Claudia Bustamante DCP- Discharge Planning Updated by [id number]: Gladys Velasco on 05/03/20 1:[address] Est[facility] at [facility] states they cannot accept Covid positive patient's until day 14. CM will continue to call dual diagnosis inpatient psychiatric facilities. DCP- Discharge Planning Updated by [id number]: Gladys Velasco on 05/03/20 12:[address] Patient Name: MELISSA DICKENS Admission Status: ER Accout number: [id number] Admission Date: 04-27-2020 : 1970 Admission Diagnosis:COVID-19 Attending: DAMION SHEN Current LOS: 6 Anticipated DC Date: Planned Disposition: Psych facility Primary Insurance: [place] Discharge Planning Comments: Cm called patient's room per COVID isolation protocol. Patient states she had been living at home with her mother. I informed her that her psychologist here recommends she goes to an inpatient psychiatric facility and she is agreeable to this. I have called [facility] and spoke with Alpa, she states no beds availability. [place] states OK to send a referral, I faxed referral to Estelle at [place]. [facility] does not take Covid positive patients. [facility] does not take Covid positive patients. I will continue to call inpatient facilities for placement. Traffic Recorder: Gladys Velasco DCPIA - Discharge Planning Initial Assessment Updated by [email or web address]: Gladys Velasco on 05/03/20 1:12 pm * Is the patient Alert and Oriented? No * Preadmission Environment Home with Family * ADLs Independent External Providers External Provider: OTHER-OTHER Next Contact Date: Service Request Date: Service Type: Resolution: Reviewer: Comments: Last DP export: 05/13/20 4:37 p Patient Name: MELISSA DICKENS Page 00554 at 1757 All edits/amendments must be made on the electronic document DICTATION DATE: 05/13/201756 VICE PRESIDENT OF CONTRACTS: HOLLEY 05/13/201756 RPT#: [id number] DC DATE: STATUS: ADM IN [facility] [address] [place] [address] END OF REPORT
--- NOTE | 2020-05-13 19:19 | NUR ---
REPORT TAKEN AND BEDSIDE VISITATION DONE PT IS IN NEED OF DRINK BED LOW AND LOCKED NO NEEDS AT THIS TIME
[2020-05-13 19:39] VITALS: BP 131/77
[2020-05-13 22:59] VITALS: BP 132/68
--- NOTE | 2020-05-14 00:27 | MORECARE ---
CASE MANAGEMENT DISCHARGE SUMMARY PATIENT: MELISSA DICKENS UNIT: [id number] ADM DATE: 04/27/20 AGE: 50 : 74 SEX: F ROOM/BED: D.7162 AUTHOR: ASHANTI,DOC PHYSICIAN: REFERRING PHYSICIAN: JOY SHEN MD DATE OF SERVICE: 05/14/20 Discharge Plan Patient Name: MELISSA DICKENS Facility: [facility]:[place] : 1970 Planned Disposition: Psych facility Anticipated Discharge Date: Discharge Date: Expected LOS: Initial Reviewer: [id number] Initial Review Date: 05/03/2020 Generated: 05/14/20 1:27 am Comments DCP- Discharge Planning Updated by [email or web address]: Alyse Tejeda on 05/13/20 11:[address] CM sent referral to [facility] and later received a call back that they had denied her because she exceeds their capabilities. CM called and sent referral pack to [facility] awaiting determination. DCP- Discharge Planning Updated by [id number]: Alyse Tejeda on 05/13/20 11:[address] Psych re-eval is still stating patient is needing psych placement CM will send out referral packets out today for placement. DCP- Discharge Planning Updated by [id number]: Alyse Tejeda on 05/13/20 11:[address] LATE ENTRY 05/11/20 CM called [facility] to check status of bed availability. CM was told to send over new packet and they would call back with determination later today. CM received a call back @ [phone] that patient was denied. The nurse stated that the packet was reviewed by the medical educator and community development technician and they denied acceptance. CM wasn't given any explanation as to why she was denied. CM spoke with Georgia HAWTHORNE about getting a psych re-eval to see if patient is still requiring psych placement since the last note was on 04/30/20. CM will continue to follow and assist with discharge planning / needs. DCP- Discharge Planning Updated by [id number]: Gladys Velasco on 05/08/20 12:[address] CM called [facility] and spoke with [facility]. [facility] states they will not have an opening until Wednesday and to send a whole new referral on Wednesday. Possible discharge to [facility] on Wednesday. DCP- Discharge Planning Updated by [email or web address]: Claudia Bustamante on 05/06/20 1:[address] Patient Name: MELISSA DICKENS Admission Status: ER Accout number: [id number] Admission Date: 04-27-2020 : 1970 Admission Diagnosis:COVID-19 Attending: DAMION SHEN Current LOS: 9 Anticipated DC Date: Planned Disposition: Psych facility Primary Insurance: [place] Discharge Planning Comments: CM SPOKE WITH [facility] [place] AND THEY ARE NOT ACCEPTING ANY COVID POSITIVE PATIENTS. I AM SENDING UPDATED CLINICALS TO [facility]. THIS PATIENT WILL NOT BE ELIGABLE TO BE ACCEPTED TO [place] UNTIL COVID IS PAST 14 DAYS. IT WILL BE 14 DAYS 05/11/20. I WILL CONTINUE TO SEND UPDATES AND CHECK OTHER FACILITIES. CM TO FOLLOW AND ASSIST NEEDED. Senior Account Director: Claudia Bustamante DCP- Discharge Planning Updated by [email or web address]: Gladys Velasco on 05/03/20 1:[address] Estelle at [facility] states they cannot accept Covid positive patient's until day 14. CM will continue to call dual diagnosis inpatient psychiatric facilities. DCP- Discharge Planning Updated by [email or web address]: Gladys Velasco on 05/03/20 12:[address] Patient Name: MELISSA DICKENS Admission Status: ER Accout number: [id number] Admission Date: 04-27-2020 : 1970 Admission Diagnosis:COVID-19 Attending: DAMION SHEN Current LOS: 6 Anticipated DC Date: Planned Disposition: Psych facility Primary Insurance: [place] Discharge Planning Comments: Cm called patient's room per COVID isolation protocol. Patient states she had been living at home with her mother. I informed her that her psychologist here recommends she goes to an inpatient psychiatric facility and she is agreeable to this. I have called [facility] and spoke with Alpa, she states no beds availability. [facility] states OK to send a referral, I faxed referral to Estelle at [facility]. [facility] take Cov[facility] positive patients. [facility] does not take Covid positive patients. I will continue to call inpatient facilities for placement. Senior Account Director: Gladys Velasco DCPIA - Discharge Planning Initial Assessment Updated by [email or web address]: Gladys Velasco on 05/03/20 1:12 pm * Is the patient Alert and Oriented? No * Preadmission Environment Home with Family * ADLs Independent Last DP export: 05/13/20 4:57 p Patient Name: MELISSA DICKENS Page 20312 at 0027 All edits/amendments must be made on the electronic document DICTATION DATE: 05/14/2026 [facility]: [facility] 05/14/2026 RPT#: [id number] DC DATE: STATUS: ADM IN [facility] [address] [place] [address] END OF REPORT
--- NOTE | 2020-05-14 02:01 | NUR ---
I have reviewed this patient and I concur with the Shift Assessment completed by the Licensed Practical Nurse today this shift.
[2020-05-14 07:14] LABS: BASOPHILS 0.1 % (0-2); EOSINOPHILS 0 % (0-7); HEMATOCRIT 36.6 % (36.0-48.0); HEMOGLOBIN 12.7 g/dL (12-16); IMMATURE GRANULOCYTES 0.5 % (0-5); LYMPHOCYTE ABS# 1.75 10x3/uL (1.18-3.74); MCH 28.7 pg (26.0-34.0); MCHC 34.7 g/dL (31.0-37.0); MCV 82.8 fL (80.0-100.0); MONOCYTES 9.3 % (2-11); NEUTROPHIL ABS# 5.41 10x3/uL (1.56-6.13); NEUTROPHILS 68.1 % (40-80); PLATELET COUNT 145 10x3/uL (130-400); RBC 4.42 10x6/uL (4.00-5.40); RDW 14.6 % (11.5-14.5)
[2020-05-14 07:15] LABS: ALBUMIN 2.8 g/dL (3.4-5.0); ALKALINE PHOSPHATASE 75 U/L (30-120); ALT (SGPT) 54 U/L (10-68); BILIRUBIN - TOTAL 0.18 mg/dL (0.2-1.3); CALC OSMOLALITY 276 mosm/kg (275-300); CALCIUM 8.7 mg/dL (8.5-10.1); CARBON DIOXIDE 26.8 mmol/L (21.0-32.0); CHLORIDE - SERUM 104 mmol/L (98-107); CREATININE - SERUM 0.7 mg/dL (0.6-1.3); GLUCOSE 81 mg/dL (74-106); POTASSIUM - SERUM 3.8 mmol/L (3.5-5.1); PROTEIN - SERUM 6.2 g/dL (6.4-8.2); SODIUM 138 mmol/L (136-145); UREA NITROGEN 17 mg/dL (7-18); eGFR NON AFRICAN AMERICAN > 90 mL/min (90-120)
[2020-05-14 08:44] VITALS: BP 117/70
--- NOTE | 2020-05-14 11:30 | NUR ---
Nutrition Reassessment/Follow-up: Pt in droplet isolation; covid-19+. Good PO intake reported. Awaiting placement. Diet: Regular, Ensure TID No new wt; last wt: 130# (04/29) Labs noted: Alb 2.8 Meds noted: Protonix, Decadron, vit B1, vit C, vit D, electrolyte protocol -Nutrition needs unchanged; no new wt available. -Encourage PO intake and honor food preferences. -Need new wt. -RD will follow up within 7 days if pt still admitted.
--- NOTE | 2020-05-14 12:00 | MORECARE ---
CASE MANAGEMENT DISCHARGE SUMMARY PATIENT: MELISSA DICKENS UNIT: [id number] ADM DATE: 04/27/20 AGE: 50 : 74 SEX: F ROOM/BED: D.9443 AUTHOR: ASHANTI,DOC PHYSICIAN: REFERRING PHYSICIAN: JOY SHEN MD DATE OF SERVICE: 05/14/20 Discharge Plan Patient Name: MELISSA DICKENS Facility: [facility]:[place] : 1970 Planned Disposition: Psych facility Anticipated Discharge Date: Discharge Date: Expected LOS: Initial Reviewer: [email or web address] Initial Review Date: 05/03/2020 Generated: 05/14/20 1:00 pm Comments DCP- Discharge Planning Updated by [email or web address]: Gladys Velasco on 05/14/20 10:[address] CM called [facility] to check on referral and they state they did not receive the fax. Cm faxed referral again today. CM called [facility] in [facility] and faxed referral. DCP- Discharge Planning Updated by [email or web address]: Alyse Tejeda on 05/13/20 11:[address] CM sent referral to [facility] and later received a call back that they had denied her because she exceeds their capabilities. CM called and sent referral pack to [facility] awaiting determination. DCP- Discharge Planning Updated by [id number]: Alyse Tejeda on 05/13/20 11:[address] Psych re-eval is still stating patient is needing psych placement CM will send out referral packets out today for placement. DCP- Discharge Planning Updated by [email or web address]: Alyse Tejeda on 05/13/20 11:[address] LATE ENTRY 05/11/20 CM called [facility] to check status of bed availability. CM was told to send over new packet and they would call back with determination later today. CM received a call back @ [phone] that patient was denied. The nurse stated that the packet was reviewed by the center medical director and school community relations coordinator and they denied acceptance. CM wasn't given any explanation as to why she was denied. CM spoke with Georgia HAWTHORNE about getting a psych re-eval to see if patient is still requiring psych placement since the last note was on 04/30/20. CM will continue to follow and assist with discharge planning / needs. DCP- Discharge Planning Updated by [id number]: Gladys Portilloezequiel on 05/08/20 12:[address] CM called [facility] and spoke with Glenny. Glenny states they will not have an opening until Wednesday and to send a whole new referral on Wednesday. Possible discharge to [facility] on Wednesday. DCP- Discharge Planning Updated by [email or web address]: Claudia Bustamante on 05/06/20 1:[address] Patient Name: MELISSA DICKENS Admission Status: ER Accout number: [id number] Admission Date: 04-27-2020 : 1970 Admission Diagnosis:COVID-19 Attending: DAMION SHEN Current LOS: 9 Anticipated DC Date: Planned Disposition: Psych facility Primary Insurance: MEDICAID [place] Discharge Planning Comments: CM SPOKE WITH [facility] IN [place] AND THEY ARE NOT ACCEPTING ANY COVID POSITIVE PATIENTS. I AM SENDING UPDATED CLINICALS TO [facility]. THIS PATIENT WILL NOT BE ELIGABLE TO BE ACCEPTED TO [facility] UNTIL COVID IS PAST 14 DAYS. IT WILL BE 14 DAYS 05/11/20. I WILL CONTINUE TO SEND UPDATES AND CHECK OTHER FACILITIES. CM TO FOLLOW AND ASSIST NEEDED. Deoiling Machine Operator: Claudia Bustamante DCP- Discharge Planning Updated by [id number]: Gladys Velasco on 05/03/20 1:[address] Estelle at [facility] states they cannot accept Covid positive patient's until day 14. CM will continue to call dual diagnosis inpatient psychiatric facilities. DCP- Discharge Planning Updated by [email or web address]: Gladys Portilloezequiel on 05/03/20 12:[address] Patient Name: MELISSA DICKENS Admission Status: ER Accout number: [id number] Admission Date: 04-27-2020 : 1970 Admission Diagnosis:COVID-19 Attending: DAMION SHEN Current LOS: 6 Anticipated DC Date: Planned Disposition: Psych facility Primary Insurance: MEDICAID [place] Discharge Planning Comments: Cm called patient's room per COVID isolation protocol. Patient states she had been living at home with her mother. I informed her that her psychologist here recommends she goes to an inpatient psychiatric facility and she is agreeable to this. I have called [facility] and spoke with Alpa, she states no beds availability. [facility] states OK to send a referral, I faxed referral to Estelle at [facility]. [facility] does not take Covid positive patients. [facility] does not take Covid positive patients. I will continue to call inpatient facilities for placement. Deoiling Machine Operator: Gladys Velasco DCPIA - Discharge Planning Initial Assessment Updated by [email or web address]: Gladys Velasco on 05/03/20 1:12 pm * Is the patient Alert and Oriented? No * Preadmission Environment Home with Family * ADLs Independent External Providers External Provider: OTHER-OTHER Next Contact Date: Service Request Date: Service Type: Resolution: Reviewer: Comments: Last DP export: 05/13/20 11:27 p Patient Name: MELISSA DICKENS Page [id number] at 1200 All edits/amendments must be made on the electronic document DICTATION DATE: 05/14/20 1200 CULINARY ARTS TEACHER: HOLLEY 05/14/20 1200 RPT#: [id number] DC DATE: STATUS: ADM IN [facility] [address] [place] [address] END OF REPORT
--- NOTE | 2020-05-14 12:46 | MORECARE ---
CASE MANAGEMENT DISCHARGE SUMMARY PATIENT: MELISSA DICKENS UNIT: [id number] ADM DATE: 04/27/20 AGE: 50 : 74 SEX: F ROOM/BED: D.0469 AUTHOR: ASHANTI,DOC PHYSICIAN: REFERRING PHYSICIAN: JOY SHEN MD DATE OF SERVICE: 05/14/20 Discharge Plan Patient Name: MELISSA DICKENS Facility: [facility]:[place] : 1970 Planned Disposition: Psych facility Anticipated Discharge Date: Discharge Date: Expected LOS: Initial Reviewer: [email or web address] Initial Review Date: 05/03/2020 Generated: 05/14/20 1:46 pm Comments DCP- Discharge Planning Updated by [email or web address]: Gladys Velasco on 05/14/20 11:[address] Alpa from [facility] admission. States we do not take positive Covid patients. CM has already sent a referral to [facility] as well in [place]. DCP- Discharge Planning Updated by [id number]: Gladys Velasco on 05/14/20 10:[address] CM called [facility] to check on referral and they state they did not receive the fax. Cm faxed referral again today. CM called [facility] in [facility] and faxed referral. DCP- Discharge Planning Updated by [id number]: Alyse Tejeda on 05/13/20 11:[address] CM sent referral to [facility] and later received a call back that they had denied her because she exceeds their capabilities. CM called and sent referral pack to [facility] awaiting determination. DCP- Discharge Planning Updated by [id number]: Alyse Tejeda on 05/13/20 11:[address] Psych re-eval is still stating patient is needing psych placement CM will send out referral packets out today for placement. DCP- Discharge Planning Updated by [id number]: Alyse Tejeda on 05/13/20 11:[address] LATE ENTRY 05/11/20 CM called [facility] to check status of bed availability. CM was told to send over new packet and they would call back with determination later today. CM received a call back @ [phone] that patient was denied. The nurse stated that the packet was reviewed by the medical authorization specialist and blood donor unit assistant and they denied acceptance. CM wasn't given any explanation as to why she was denied. CM spoke with Georgia HAWTHORNE about getting a psych re-eval to see if patient is still requiring psych placement since the last note was on 04/30/20. CM will continue to follow and assist with discharge planning / needs. DCP- Discharge Planning Updated by [id number]: Gladys Velasco on 05/08/20 12:[address] CM called [facility] and spoke with Glenny. Glenny states they will not have an opening until Wednesday and to send a whole new referral on Wednesday. Possible discharge to [facility] on Wednesday. DCP- Discharge Planning Updated by [id number]: Claudia Bustamante on 05/06/20 1:[address] Patient Name: MELISSA DICKENS Admission Status: ER Accout number: [id number] Admission Date: 04-27-2020 : 1970 Admission Diagnosis:COVID-19 Attending: DAMION SHEN Current LOS: 9 Anticipated DC Date: Planned Disposition: Psych facility Primary Insurance: MEDICAID [place] Discharge Planning Comments: CM SPOKE WITH [facility] IN [place] AND THEY ARE NOT ACCEPTING ANY COVID POSITIVE PATIENTS. I AM SENDING UPDATED CLINICALS TO [facility]. THIS PATIENT WILL NOT BE ELIGABLE TO BE ACCEPTED TO [place] UNTIL COVID IS PAST 14 DAYS. IT WILL BE 14 DAYS 05/11/20. I WILL CONTINUE TO SEND UPDATES AND CHECK OTHER FACILITIES. CM TO FOLLOW AND ASSIST NEEDED. Staff Development Coordinator: Claudia Bustamante DCP- Discharge Planning Updated by [id number]: Gladys Velasco on 05/03/20 1:[address] Estelle at [facility] states they cannot accept Covid positive patient's until day 14. CM will continue to call dual diagnosis inpatient psychiatric facilities. DCP- Discharge Planning Updated by [id number]: Gladys Velasco on 05/03/20 12:[address] Patient Name: MELISSA DICKENS Admission Status: ER Accout number: [id number] Admission Date: 04-27-2020 : 1970 Admission Diagnosis:COVID-19 Attending: DAMION SHEN Current LOS: 6 Anticipated DC Date: Planned Disposition: Psych facility Primary Insurance: MEDICAID [place] Discharge Planning Comments: Cm called patient's room per COVID isolation protocol. Patient states she had been living at home with her mother. I informed her that her psychologist here recommends she goes to an inpatient psychiatric facility and she is agreeable to this. I have called [facility] and spoke with Alpa, she states no beds availability. [facility] states OK to send a referral, I faxed referral to Estelle at [facility]. [facility] does not take Covid positive patients. [facility] does not take Cov[facility] positive patients. I will continue to call inpatient facilities for placement. Staff Development Coordinator: Gladys Velasco DCPIA - Discharge Planning Initial Assessment Updated by [email or web address]: Gladys Velasco on 05/03/20 1:12 pm * Is the patient Alert and Oriented? No * Preadmission Environment Home with Family * ADLs Independent Last DP export: 05/14/20 11:00 a Patient Name: MELISSA DICKENS Page 30150 at 1246 All edits/amendments must be made on the electronic document DICTATION DATE: 05/14/20 1246 LIQUIFIED NATURAL GAS SPECIALIST: HOLLEY 05/14/20 1246 RPT#: [id number] [place] DATE: STATUS: ADM IN [facility] [address] [place] [address] END OF REPORT
[2020-05-14 13:02] VITALS: BP 118/63
--- NOTE | 2020-05-14 14:33 | MORECARE ---
CASE MANAGEMENT DISCHARGE SUMMARY PATIENT: MELISSA DICKENS UNIT: [id number] ADM DATE: 04/27/20 AGE: 50 : 74 SEX: F ROOM/BED: D.4750 AUTHOR: ASHANTI,DOC PHYSICIAN: REFERRING PHYSICIAN: JOY SHEN MD DATE OF SERVICE: 05/14/20 Discharge Plan Patient Name: MELISSA DICKENS Facility: [facility]:[place] : 1970 Planned Disposition: Psych facility Anticipated Discharge Date: Discharge Date: Expected LOS: Initial Reviewer: [email or web address] Initial Review Date: 05/03/2020 Generated: 05/14/20 3:32 pm Comments DCP- Discharge Planning Updated by [id number]: Gladys Velasco on 05/14/20 1:[address] Domo from [facility] at [facility] states they can clinically accept on 05/17 or later if bed available. He is unable to say if a bed will still be available on the . DCP- Discharge Planning Updated by [id number]: Gladys Velasco on 05/14/20 11:[address] Alpa from [facility] admission. States we do not take positive Covid patients. CM has already sent a referral to [facility] as well in [place]. DCP- Discharge Planning Updated by [email or web address]: Gladys Velasco on 05/14/20 10:[address] CM called [facility] to check on referral and they state they did not receive the fax. Cm faxed referral again today. CM called [facility] in [facility] and faxed referral. DCP- Discharge Planning Updated by [id number]: Alyse Tejeda on 05/13/20 11:[address] CM sent referral to [facility] and later received a call back that they had denied her because she exceeds their capabilities. CM called and sent referral pack to [facility] awaiting determination. DCP- Discharge Planning Updated by [id number]: Alyse Tejdea on 05/13/20 11:[address] Psych re-eval is still stating patient is needing psych placement CM will send out referral packets out today for placement. DCP- Discharge Planning Updated by [id number]: Alyse Tejeda on 05/13/20 11:[address] LATE ENTRY 05/11/20 CM called [facility] to check status of bed availability. CM was told to send over new packet and they would call back with determination later today. CM received a call back @ [phone] that patient was denied. The nurse stated that the packet was reviewed by the hospital medical biller and community services officer and they denied acceptance. CM wasn't given any explanation as to why she was denied. CM spoke with Georgia HAWTHORNE about getting a psych re-eval to see if patient is still requiring psych placement since the last note was on 04/30/20. CM will continue to follow and assist with discharge planning / needs. DCP- Discharge Planning Updated by [id number]: Gladys Velasco on 05/08/20 12:[address] CM called [facility] and spoke with Glenny. Glenny states they will not have an opening until Wednesday and to send a whole new referral on Wednesday. Possible discharge to [facility] on Wednesday. DCP- Discharge Planning Updated by [id number]: Claudia Bustamante on 05/06/20 1:[address] Patient Name: MELISSA DICKENS Admission Status: ER Accout number: [id number] Admission Date: 04-27-2020 : 1970 Admission Diagnosis:COVID-19 Attending: DAMION SHEN Current LOS: 9 Anticipated DC Date: Planned Disposition: Psych facility Primary Insurance: MEDICAID [place] Discharge Planning Comments: CM SPOKE WITH [facility] IN [place] AND THEY ARE NOT ACCEPTING ANY COVID POSITIVE PATIENTS. I AM SENDING UPDATED CLINICALS TO [facility]. THIS PATIENT WILL NOT BE ELIGABLE TO BE ACCEPTED TO [facility] UNTIL COVID IS PAST 14 DAYS. IT WILL BE 14 DAYS 05/11/20. I WILL CONTINUE TO SEND UPDATES AND CHECK OTHER FACILITIES. CM TO FOLLOW AND ASSIST NEEDED. Clinical Evaluator: Claudia Bustamante DCP- Discharge Planning Updated by [id number]: Gladys Velasco on 05/03/20 1:[address] Estelle at [facility] states they cannot accept Covid positive patient's until day 14. CM will continue to call dual diagnosis inpatient psychiatric facilities. DCP- Discharge Planning Updated by [id number]: Gladys Velasco on 05/03/20 12:[address] Patient Name: MELISSA DICKENS Admission Status: ER Accout number: [id number] Admission Date: 04-27-2020 : 1970 Admission Diagnosis:COVID-19 Attending: DAMION SHEN Current LOS: 6 Anticipated DC Date: Planned Disposition: Psych facility Primary Insurance: MED[place]ID [place] Discharge Planning Comments: Cm called patient's room per COVID isolation protocol. Patient states she had been living at home with her mother. I informed her that her psychologist here recommends she goes to an inpatient psychiatric facility and she is agreeable to this. I have called [facility] and spoke with Alpa, she states no beds availability. [facility] states OK to send a referral, I faxed referral to Estelle at [facility]. [facility] does not take Covid positive patients. [facility] does not take Covid positive patients. I will continue to call inpatient facilities for placement. Clinical Evaluator: Gladys Velasco DCPIA - Discharge Planning Initial Assessment Updated by [email or web address]: Gladys Velasco on 05/03/20 1:12 pm * Is the patient Alert and Oriented? No * Preadmission Environment Home with Family * ADLs Independent Last DP export: 05/14/20 11:46 a Patient Name: MELISSA DICKENS Page 72180 at 1433 All edits/amendments must be made on the electronic document DICTATION DATE: 05/14/201431 GUIDANCE SECRETARY: HOLLEY 05/14/20 143 RPT#: [id number] DC DATE: STATUS: ADM IN [facility] [address] [place] [address] END OF REPORT
[2020-05-14 16:08] VITALS: BP 139/73
[2020-05-14 21:50] VITALS: BP 120/52
[2020-05-15 01:48] VITALS: BP 116/66
[2020-05-15 04:28] VITALS: BP 107/64
--- NOTE | 2020-05-15 04:49 | NUR ---
I have reviewed this patient and I concur with the Shift Assessment completed by the Licensed Practical Nurse today this shift.
[2020-05-15 06:42] LABS: ALBUMIN 2.8 g/dL (3.4-5.0); ANION GAP 9.9 mmol/L (8-16); BILIRUBIN - TOTAL 0.2 mg/dL (0.2-1.3); CALCIUM 8.7 mg/dL (8.5-10.1); CARBON DIOXIDE 27.6 mmol/L (21.0-32.0); POTASSIUM - SERUM 3.5 mmol/L (3.5-5.1); PROTEIN - SERUM 6.8 g/dL (6.4-8.2)
[2020-05-15 06:43] LABS: CREATININE - SERUM 0.9 mg/dL (0.6-1.3)
[2020-05-15 06:45] LABS: BASOPHILS 0.1 % (0-2); EOSINOPHILS 0 % (0-7); HEMATOCRIT 38.8 % (36.0-48.0); HEMOGLOBIN 13.4 g/dL (12-16); IMMATURE GRANULOCYTES 0.3 % (0-5); LYMPHOCYTE ABS# 1.64 10x3/uL (1.18-3.74); LYMPHOCYTES 22.6 % (15-50); MCH 28.4 pg (26.0-34.0); MCHC 34.5 g/dL (31.0-37.0); MCV 82.2 fL (80.0-100.0); NEUTROPHIL ABS# 4.79 10x3/uL (1.56-6.13); PLATELET COUNT 157 10x3/uL (130-400); RBC 4.72 10x6/uL (4.00-5.40); RDW 14.7 % (11.5-14.5); WBC 7.3 10x3/uL (4.8-10.8)
[2020-05-15 07:37] VITALS: BP 117/70
[2020-05-15 12:53] VITALS: BP 135/77
[2020-05-15 21:02] VITALS: BP 110/57
[2020-05-16 01:31] VITALS: BP 122/71
--- NOTE | 2020-05-16 05:33 | NUR ---
I have reviewed this patient and I concur with the Shift Assessment completed by the Licensed Practical Nurse today this shift.
[2020-05-16 05:45] VITALS: BP 121/80
[2020-05-16 06:43] LABS: ALBUMIN 2.7 g/dL (3.4-5.0); ALKALINE PHOSPHATASE 70 U/L (30-120); ALT (SGPT) 50 U/L (10-68); BILIRUBIN - TOTAL 0.17 mg/dL (0.2-1.3); CALC OSMOLALITY 278 mosm/kg (275-300); CALCIUM 8.3 mg/dL (8.5-10.1); CARBON DIOXIDE 26.2 mmol/L (21.0-32.0); CHLORIDE - SERUM 104 mmol/L (98-107); CREATININE - SERUM 0.8 mg/dL (0.6-1.3); GLUCOSE 94 mg/dL (74-106); POTASSIUM - SERUM 3.6 mmol/L (3.5-5.1); PROTEIN - SERUM 6.7 g/dL (6.4-8.2); SODIUM 138 mmol/L (136-145); UREA NITROGEN 20 mg/dL (7-18); eGFR NON AFRICAN AMERICAN 81 mL/min (90-120)
[2020-05-16 07:20] LABS: BASOPHILS 0.1 % (0-2); EOSINOPHILS 0 % (0-7); HEMATOCRIT 34.7 % (36.0-48.0); HEMOGLOBIN 12.3 g/dL (12-16); IMMATURE GRANULOCYTES 0.4 % (0-5); LYMPHOCYTE ABS# 1.77 10x3/uL (1.18-3.74); LYMPHOCYTES 26.1 % (15-50); MCH 29.2 pg (26.0-34.0); MCHC 35.4 g/dL (31.0-37.0); MCV 82.4 fL (80.0-100.0); NEUTROPHIL ABS# 4.36 10x3/uL (1.56-6.13); NEUTROPHILS 64.4 % (40-80); PLATELET COUNT 156 10x3/uL (130-400); RBC 4.21 10x6/uL (4.00-5.40); RDW 14.8 % (11.5-14.5); WBC 6.8 10x3/uL (4.8-10.8)
[2020-05-16 07:25] VITALS: BP 119/68
--- NOTE | 2020-05-16 08:54 | PN ---
PATIENT:MELISSA DICKENS MEDICAL RECORD: [id number] [facility] DATE: 04/27/20 PROGRESS NOTE DATE OF SERVICE: 05/15/2020 SUBJECTIVE: The patient's case was discussed with staff. She has no new complaint. OBJECTIVE: The patient still is having mood lability and perceptual changes. ASSESSMENT: Major depression with psychosis. PLAN: The patient needs to be transferred to acute inpatient psychiatric care once medically stabilized. TRANSINT:[id number] Voice Confirmation ID: [id number] DOCUMENT ID: [id number] ARACELY KEANE MD at 0854 CC: [id number] DICTATION DATE: 05/15/20 1655 IRRIGATING PUMP OPERATOR: 05/16/20 0113 ADM IN [place] [id number] [place] [address]
[2020-05-16] MEDS ORDERED: ZOLOFT50 MG PO (12:07)
[2020-05-16] MEDS ORDERED: HALDOL5 MG PO (12:07)
[2020-05-16] MEDS ORDERED: TEGRETOL200 MG PO (12:07)
--- NOTE | 2020-05-16 15:02 | MORECARE ---
CASE MANAGEMENT DISCHARGE SUMMARY PATIENT: MELISSA DICKENS UNIT: [id number] ADM DATE: 04/27/20 AGE: 50 : 74 SEX: F ROOM/BED: D.5736 AUTHOR: ASHANTI,DOC PHYSICIAN: REFERRING PHYSICIAN: JOY SHEN MD DATE OF SERVICE: 05/16/20 Discharge Plan Patient Name: MELISSA DICKENS Facility: [facility]:[place] : 1970 Planned Disposition: Psych facility Anticipated Discharge Date: Discharge Date: Expected LOS: Initial Reviewer: [email or web address] Initial Review Date: 05/03/2020 Generated: 05/16/20 4:01 pm Comments DCP- Discharge Planning Updated by [id number]: Alyse Tejeda on 05/16/20 1:[address] CM called [facility] to check on patient status on admit for Wednesday. CM spoke with Kimmy and she spoke with Domo. CM was told that they would not accept any updates until tomorrow. They would not give CM any indication on whether they would have a bed or not tomorrow. Will need to send a new referral packet in am. DCP- Discharge Planning Updated by [id number]: Gladys Velasco on 05/14/20 1:[address] Domo from [facility] states they can clinically accept on 05/17 or later if bed available. He is unable to say if a bed will still be available on the . DCP- Discharge Planning Updated by [id number]: Gladys Velasco on 05/14/20 11:[address] Alpa from [facility] declined admission. States we do not take positive Covid patients. CM has already sent a referral to [facility] as well in [place]. DCP- Discharge Planning Updated by [id number]: Gladys Velasco on 05/14/20 10:[address] KODAK called [facility] to check on referral and they state they did not receive the fax. Cm faxed referral again today. CM called [facility] in [facility] and faxed referral. DCP- Discharge Planning Updated by [id number]: Alyse Tejeda on 05/13/20 11:[address] CM sent referral to [facility] and later received a call back that they had denied her because she exceeds their capabilities. CM called and sent referral pack to [facility] awaiting determination. DCP- Discharge Planning Updated by [email or web address]: Alyse Tejeda on 05/13/20 11:[address] Psych re-eval is still stating patient is needing psych placement CM will send out referral packets out today for placement. DCP- Discharge Planning Updated by [id number]: Alyse Sierrar on 05/13/20 11:[address] LATE ENTRY 05/11/20 CM called [facility] to check status of bed availability. CM was told to send over new packet and they would call back with determination later today. CM received a call back @ [phone] that patient was denied. The nurse stated that the packet was reviewed by the medical education manager and community health consultant and they denied acceptance. CM wasn't given any explanation as to why she was denied. CM spoke with Georgia HAWTHORNE about getting a psych re-eval to see if patient is still requiring psych placement since the last note was on 04/30/20. CM will continue to follow and assist with discharge planning / needs. DCP- Discharge Planning Updated by [id number]: Gladys Velasco on 05/08/20 12:[address] CM called [facility] and spoke with Glenny. Glenny states they will not have an opening until Wednesday and to send a whole new referral on Wednesday. Possible discharge to [facility] on Wednesday. DCP- Discharge Planning Updated by [email or web address]: Claudia Bustamante on 05/06/20 1:[address] Patient Name: MELISSA DICKENS Admission Status: ER Accout number: [id number] Admission Date: 04-27-2020 : 1970 Admission Diagnosis:COVID-19 Attending: DAMION SHEN Current LOS: 9 Anticipated DC Date: Planned Disposition: Psych facility Primary Insurance: MEDICAID [place] Discharge Planning Comments: [facility] [place] AND [facility] ARE NOT ACCEPTING ANY COVID POSITIVE PATIENTS. I AM SENDING UPDATED CLINICALS TO [facility]. THIS PATIENT WILL NOT BE ELIGABLE TO BE ACCEPTED TO [facility] UNTIL COVID IS PAST 14 DAYS. IT WILL BE 14 DAYS 05/11/20. I WILL CONTINUE TO SEND UPDATES AND CHECK OTHER FACILITIES. CM TO FOLLOW AND ASSIST NEEDED. Data Reviewer: Claudia Bustamante DCP- Discharge Planning Updated by [id number]: Gladys Velasco on 05/03/20 1:[address] Estelle at [facility] states they cannot accept Covid positive patient's until day 14. CM will continue to call dual diagnosis inpatient psychiatric facilities. DCP- Discharge Planning Updated by [id number]: Gladys Velasco on 05/03/20 12:[address] Patient Name: MELISSA DICKENS Admission Status: ER Accout number: [id number] Admission Date: 04-27-2020 : 1970 Admission Diagnosis:COVID-19 Attending: DAMION SHEN Current LOS: 6 Anticipated DC Date: Planned Disposition: Psych facility Primary Insurance: MED[place]ID [place] Discharge Planning Comments: Cm called patient's room per COVID isolation protocol. Patient states she had been living at home with her mother. I informed her that her psychologist here recommends she goes to an inpatient psychiatric facility and she is agreeable to this. I have called [facility] and spoke with Alpa, she states no beds availability. [facility] states OK to send a referral, I faxed referral to Estelle at [facility]. [facility] does not take Covid positive patients. [facility] does not take Covid positive patients. I will continue to call inpatient facilities for placement. Data Reviewer: Gladys Velasco DCPIA - Discharge Planning Initial Assessment Updated by [id number]: Gladys Velasco on 05/03/20 1:12 pm * Is the patient Alert and Oriented? No * Preadmission Environment Home with Family * ADLs Independent Last DP export: 05/14/20 1:33 p Patient Name: MELISSA DICKENS Page 67151 at 1502 All edits/amendments must be made on the electronic document DICTATION DATE: 05/16/20 1501 LEAD ENTERPRISE ARCHITECT: HOLLEY 05/16/20 1501 RPT#: [id number] DC DATE: STATUS: ADM IN [facility] [address] [place] [address] END OF REPORT
[2020-05-16 15:28] VITALS: BP 115/61
--- NOTE | 2020-05-16 16:01 | NUR ---
PT RESTING IN ROOM. STATES THAT SHE MAY GET TO LEAVE TOMORROW. AFFECT FLAT, DENIES SI/HI/HALLUCINATIONS. PLEASANT & COOPERATIVE WITH STAFF. NO NEEDS VOICED.
[2020-05-16 19:40] VITALS: BP 120/62
--- NOTE | 2020-05-17 04:49 | NUR ---
PT RESTING IN BED RR E/U NO S/S OF DISTRESS. VSS. BED LOW CALL LIGHT WITHI REACH. ILL CONTINUE TO MONITOR.
[2020-05-17 08:55] VITALS: BP 141/79
--- NOTE | 2020-05-17 09:55 | MORECARE ---
CASE MANAGEMENT DISCHARGE SUMMARY PATIENT: MELISSA DICKENS UNIT: [id number] ADM DATE: 04/27/20 AGE: 50 : 74 SEX: F ROOM/BED: D.2544 AUTHOR: ASHANTI,DOC PHYSICIAN: REFERRING PHYSICIAN: JOY SHEN MD DATE OF SERVICE: 05/17/20 Discharge Plan Patient Name: MELISSA DICKENS Facility: [facility]:[place] : 1970 Planned Disposition: Psych facility Anticipated Discharge Date: Discharge Date: Expected LOS: Initial Reviewer: [email or web address] Initial Review Date: 05/03/2020 Generated: 05/17/20 10:54 am Comments DCP- Discharge Planning Updated by [email or web address]: Gladys Velasco on 05/17/20 8:[address] KODAK called [facility] and spoke with Kimmy. Kimmy states to resend all clinical with updated lab. CM sent clinical with updated labs. CM will continue to follow and assist with discharge planning/needs. DCP- Discharge Planning Updated by [id number]: Alyse Tejeda on 05/16/20 1:[address] CM called [facility] to check on patient status on admit for Wednesday. CM spoke with Kimmy and she spoke with Domo. CM was told that they would not accept any updates until tomorrow. They would not give CM any indication on whether they would have a bed or not tomorrow. Will need to send a new referral packet in am. DCP- Discharge Planning Updated by [id number]: Gladys Velasco on 05/14/20 1:[address] Domo from [facility] at [facility] states they can clinically accept on 05/17 or later if bed available. He is unable to say if a bed will still be available on the . DCP- Discharge Planning Updated by [id number]: Gladys Velasco on 05/14/20 11:[address] Alpa from [facility] declined admission. States we do not take positive Covid patients. KODAK has already sent a referral to [facility] as well in [place]. DCP- Discharge Planning Updated by [id number]: Gladys Velasco on 05/14/20 10:[address] CM called [facility] to check on referral and they state they did not receive the fax. Cm faxed referral again today. CM called [facility] and faxed referral. DCP- Discharge Planning Updated by [id number]: Alyse Tejeda on 05/13/20 11:[address] CM sent referral to [facility] and later received a call back that they had denied her because she exceeds their capabilities. CM called and sent referral pack to [facility] awaiting determination. DCP- Discharge Planning Updated by [id number]: Alyse Tejeda on 05/13/20 11:[address] Psych re-eval is still stating patient is needing psych placement CM will send out referral packets out today for placement. DCP- Discharge Planning Updated by [id number]: Alyse Tejeda on 05/13/20 11:[address] LATE ENTRY 05/11/20 CM called [facility] to check status of bed availability. CM was told to send over new packet and they would call back with determination later today. CM received a call back @ [phone] that patient was denied. The nurse stated that the packet was reviewed by the medical assistant secretary and community engagement manager and they denied acceptance. CM wasn't given any explanation as to why she was denied. CM spoke with Georgia HAWTHORNE about getting a psych re-eval to see if patient is still requiring psych placement since the last note was on 04/30/20. CM will continue to follow and assist with discharge planning / needs. DCP- Discharge Planning Updated by [id number]: Gladys Velasco on 05/08/20 12:[address] CM called [facility] and spoke with Glenny. Glenny states they will not have an opening until Wednesday and to send a whole new referral on Wednesday. Possible discharge to [facility] on Wednesday. DCP- Discharge Planning Updated by [id number]: Claudia Dianna on 05/06/20 1:[address] Patient Name: MELISSA DICKENS Admission Status: ER Accout number: [id number] Admission Date: 04-27-2020 : 1970 Admission Diagnosis:COVID-19 Attending: DAMION SHEN Current LOS: 9 Anticipated DC Date: Planned Disposition: Psych facility Primary Insurance: MEDICAID [place] Discharge Planning Comments: [facility] [place] AND THEY ARE NOT ACCEPTING ANY COVID POSITIVE PATIENTS. I AM SENDING UPDATED CLINICALS TO [facility]. THIS PATIENT WILL NOT BE ELIGABLE TO BE ACCEPTED TO [place] UNTIL COVID IS PAST 14 DAYS. IT WILL BE 14 DAYS 05/11/20. I WILL CONTINUE TO SEND UPDATES AND CHECK OTHER FACILITIES. CM TO FOLLOW AND ASSIST NEEDED. Visual Training Aide: Claudia Bustamante DCP- Discharge Planning Updated by [id number]: Gladys Velasco on 05/03/20 1:[address] Estelle at [facility] states they cannot accept Covid positive patient's until day 14. CM will continue to call dual diagnosis inpatient psychiatric facilities. DCP- Discharge Planning Updated by [email or web address]: Gladys Velasco on 05/03/20 12:[address] Patient Name: MELISSA DICKENS Admission Status: ER Accout number: [id number] Admission Date: 04-27-2020 : 1970 Admission Diagnosis:COVID-19 Attending: DAMION SHEN Current LOS: 6 Anticipated DC Date: Planned Disposition: Psych facility Primary Insurance: MEDICAID [place] Discharge Planning Comments: Cm called patient's room per COVID isolation protocol. Patient states she had been living at home with her mother. I informed her that her psychologist here recommends she goes to an inpatient psychiatric facility and she is agreeable to this. I have called [facility] and spoke with Alpa, she states no beds availability. [facility] states OK to send a referral, I faxed referral to Est[facility] at [facility]. [facility] Cov[facility] positive patients. [facility] does not take Covid positive patients. I will continue to call inpatient facilities for placement. Visual Training Aide: Gladys Velasco DCPIA - Discharge Planning Initial Assessment Updated by [id number]: Gladys Velasco on 05/03/20 1:12 pm * Is the patient Alert and Oriented? No * Preadmission Environment Home with Family * ADLs Independent Last DP export: 05/16/20 2:02 p Patient Name: MELISSA DICKENS Page [id number] at 0955 All edits/amendments must be made on the electronic document DICTATION DATE: 05/17/20 09 BUILDING ENERGY CONSULTANT: HOLLEY 05/17/20 0954 RPT#: [id number] DC DATE: STATUS: ADM IN [facility] [address] [place] [address] END OF REPORT
[2020-05-17 12:27] VITALS: BP 116/71
--- NOTE | 2020-05-17 13:34 | MORECARE ---
CASE MANAGEMENT DISCHARGE SUMMARY PATIENT: MELISSA DICKENS UNIT: [id number] ADM DATE: 04/27/20 AGE: 50 : 74 SEX: F ROOM/BED: D.1401 AUTHOR: ASHANTI,DOC PHYSICIAN: REFERRING PHYSICIAN: JOY SHEN MD DATE OF SERVICE: 05/17/20 Discharge Plan Patient Name: MELISSA DICKENS Facility: [facility]:[place] : 1970 Planned Disposition: Psych facility Anticipated Discharge Date: Discharge Date: Expected LOS: Initial Reviewer: [email or web address] Initial Review Date: 05/03/2020 Generated: 05/17/20 2:33 pm Comments DCP- Discharge Planning Updated by [id number]: Gladys Velasco on 05/17/20 8:[address] KODAK called [facility] and spoke with Kimmy. Kimmy states to resend all clinical with updated lab. CM sent clinical with updated labs. CM will continue to follow and assist with discharge planning/needs. DCP- Discharge Planning Updated by [id number]: Alyse Tejeda on 05/16/20 1:[address] CM called [facility] to check on patient status on admit for Wednesday. CM spoke with Kimmy and she spoke with Domo. CM was told that they would not accept any updates until tomorrow. They would not give CM any indication on whether they would have a bed or not tomorrow. Will need to send a new referral packet in am. DCP- Discharge Planning Updated by [id number]: Gladys Velasco on 05/14/20 1:[address] Domo from [facility] at [facility] states they can clinically accept on 05/17 or later if bed available. He is unable to say if a bed will still be available on the . DCP- Discharge Planning Updated by [id number]: Gladys Velasco on 05/14/20 11:[address] Alpa from [facility] declined admission. States we do not take positive Covid patients. KODAK has already sent a referral to [facility] as well in [place]. DCP- Discharge Planning Updated by [id number]: Gladys Velasco on 05/14/20 10:[address] CM called [facility] to check on referral and they state they did not receive the fax. Cm faxed referral again today. CM called [facility] and faxed referral. DCP- Discharge Planning Updated by [id number]: Alyse Tejeda on 05/13/20 11:[address] CM sent referral to [facility] and later received a call back that they had denied her because she exceeds their capabilities. CM called and sent referral pack to [facility] awaiting determination. DCP- Discharge Planning Updated by [id number]: Alyse Tejeda on 05/13/20 11:[address] Psych re-eval is still stating patient is needing psych placement CM will send out referral packets out today for placement. DCP- Discharge Planning Updated by [id number]: Alyse Tejeda on 05/13/20 11:[address] LATE ENTRY 05/11/20 CM called [facility] to check status of bed availability. CM was told to send over new packet and they would call back with determination later today. CM received a call back @ [phone] that patient was denied. The nurse stated that the packet was reviewed by the medical record librarian and mental health unit lead psychologist and they denied acceptance. CM wasn't given any explanation as to why she was denied. CM spoke with Georgia HAWTHORNE about getting a psych re-eval to see if patient is still requiring psych placement since the last note was on 04/30/20. CM will continue to follow and assist with discharge planning / needs. DCP- Discharge Planning Updated by [id number]: Gladys Velasco on 05/08/20 12:[address] CM called [facility] and spoke with Glenny. Glenny states they will not have an opening until Wednesday and to send a whole new referral on Wednesday. Possible discharge to [facility] on Wednesday. DCP- Discharge Planning Updated by [id number]: Claudia Dianna on 05/06/20 1:[address] Patient Name: MELISSA DICKENS Admission Status: ER Accout number: [id number] Admission Date: 04-27-2020 : 1970 Admission Diagnosis:COVID-19 Attending: DAMION SHEN Current LOS: 9 Anticipated DC Date: Planned Disposition: Psych facility Primary Insurance: MEDICAID [place] Discharge Planning Comments: [facility]PO[facility] [place] AND THEY ARE NOT ACCEPTING ANY COVID POSITIVE PATIENTS. I AM SENDING UPDATED CLINICALS TO [facility]. THIS PATIENT WILL NOT BE ELIGABLE TO BE ACCEPTED TO [place] UNTIL COVID IS PAST 14 DAYS. IT WILL BE 14 DAYS 05/11/20. I WILL CONTINUE TO SEND UPDATES AND CHECK OTHER FACILITIES. CM TO FOLLOW AND ASSIST NEEDED. Rock Dust Sprayer: Claudia Bustamante DCP- Discharge Planning Updated by [id number]: Gladys Velasco on 05/03/20 1:[address] Estelle at [facility] states they cannot accept Covid positive patient's until day 14. CM will continue to call dual diagnosis inpatient psychiatric facilities. DCP- Discharge Planning Updated by [id number]: Gladys Velasco on 05/03/20 12:[address] Patient Name: MELISSA DICKENS Admission Status: ER Accout number: [id number] Admission Date: 04-27-2020 : 1970 Admission Diagnosis:COVID-19 Attending: DAMION SHEN Current LOS: 6 Anticipated DC Date: Planned Disposition: Psych facility Primary Insurance: MEDICAID [place] Discharge Planning Comments: Cm called patient's room per COVID isolation protocol. Patient states she had been living at home with her mother. I informed her that her psychologist here recommends she goes to an inpatient psychiatric facility and she is agreeable to this. I have called [facility] and spoke with Alpa, she states no beds availability. [facility] states OK to send a referral, I faxed referral to Estelle at [facility]. [facility] positive patients. [facility] does not take Covid positive patients. I will continue to call inpatient facilities for placement. Rock Dust Sprayer: Gladys Velasco DCPIA - Discharge Planning Initial Assessment Updated by [id number]: Gladys Velasco on 05/03/20 1:12 pm * Is the patient Alert and Oriented? No * Preadmission Environment Home with Family * ADLs Independent External Providers External Provider: OTHER-OTHER Next Contact Date: Service Request Date: Service Type: Resolution: Reviewer: Comments: Last DP export: 05/17/20 8:55 a Patient Name: MELISSA DICKENS Page [id number] at 1334 All edits/amendments must be made on the electronic document DICTATION DATE: 05/17/201333 ENGRAVING OPERATOR: HOLLEY 05/17/20 133 RPT#: [id number] [place] DATE: STATUS: ADM IN [facility] [address] [place] [address] END OF REPORT
--- NOTE | 2020-05-17 14:09 | MORECARE ---
CASE MANAGEMENT DISCHARGE SUMMARY PATIENT: MELISSA DICKENS UNIT: [id number] ADM DATE: 04/27/20 AGE: 50 : 74 SEX: F ROOM/BED: D.2506 AUTHOR: ASHANTI,DOC PHYSICIAN: REFERRING PHYSICIAN: JOY SHEN MD DATE OF SERVICE: 05/17/20 Discharge Plan Patient Name: MELISSA DICKENS Facility: [facility]:[place] : 1970 Planned Disposition: Psych facility Anticipated Discharge Date: Discharge Date: Expected LOS: Initial Reviewer: [id number] Initial Review Date: 05/03/2020 Generated: 05/17/20 3:09 pm Comments DCP- Discharge Planning Updated by [id number]: Gladys Velasco on 05/17/20 1:[address] CM called [facility] and they are not taking patient's at this time. DCP- Discharge Planning Updated by [id number]: Gladys Velasco on 05/17/20 1:[address] CM received a call from Kimmy at [facility] in [place] that they could not accept the patient because she "would not be a good fit" with the other clientele at this time. I called [facility] and called [facility] and spoke with Zoe and fortunato talavera. Zoe states she will need a current negative PCR to be accepted to their unit. I called patient's mother and received an answering machine. I called patient and informed her that [facility] was not accepting her, but I had reached out to [facility] and [facility] at this time. I informed patient's nurse, Quiana, that I would need a repeat PCR Covid test for placement. I spoke with Zonia at [facility] and referral faxed. CM will continue to follow and assist with DC planning/needs. DCP- Discharge Planning Updated by [id number]: Gladys Velasco on 05/17/20 8:[address] CM called [facility] and spoke with Kimmy. Kimmy states to resend all clinical with updated lab. CM sent clinical with updated labs. CM will continue to follow and assist with discharge planning/needs. DCP- Discharge Planning Updated by [id number]: Alyse Tejeda on 05/16/20 1:[address] CM called [facility] to check on patient status on admit for Wednesday. CM spoke with Kimmy and she spoke with Domo. CM was told that they would not accept any updates until tomorrow. They would not give CM any indication on whether they would have a bed or not tomorrow. Will need to send a new referral packet in am. DCP- Discharge Planning Updated by [id number]: Gladys Velasco on 05/14/20 1:[address] Domo from [facility] at [facility] states they can clinically accept on 05/17 or later if bed available. He is unable to say if a bed will still be available on the . DCP- Discharge Planning Updated by [id number]: Gladys Velasco on 05/14/20 11:[address] Alpa from [facility] admission. States we do not take positive Covid patients. CM has already sent a referral to [facility] as well in [place]. DCP- Discharge Planning Updated by [id number]: Gladys Velasco on 05/14/20 10:[address] CM called [facility] to check on referral and they state they did not receive the fax. Cm faxed referral again today. CM called [facility] in [facility] and faxed referral. DCP- Discharge Planning Updated by [id number]: Alyse Tejeda on 05/13/20 11:[address] CM sent referral to [facility] and later received a call back that they had denied her because she exceeds their capabilities. CM called and sent referral pack to [facility] awaiting determination. DCP- Discharge Planning Updated by [id number]: Alyse Tejeda on 05/13/20 11:[address] Psych re-eval is still stating patient is needing psych placement CM will send out referral packets out today for placement. DCP- Discharge Planning Updated by [id number]: Alyse Tejeda on 05/13/20 11:[address] LATE ENTRY 05/11/[address] [facility] to check status of bed availability. CM was told to send over new packet and they would call back with determination later today. CM received a call back @ [phone] that patient was denied. The nurse stated that the packet was reviewed by the medical reimbursement specialist and community health advocate and they denied acceptance. CM wasn't given any explanation as to why she was denied. CM spoke with Georgia HAWTHORNE about getting a psych re-eval to see if patient is still requiring psych placement since the last note was on 04/30/20. CM will continue to follow and assist with discharge planning / needs. DCP- Discharge Planning Updated by [id number]: Gladys Velasco on 05/08/20 12:[address] CM called [facility] and spoke with Glenny. [facility] states they will not have an opening until Wednesday and to send a whole new referral on Wednesday. Possible discharge to [facility] on Wednesday. DCP- Discharge Planning Updated by [id number]: Claudia Bustamante on 05/06/20 1:[address] Patient Name: MELISSA DICKENS Admission Status: ER Accout number: [id number] Admission Date: 04-27-2020 : 1970 Admission Diagnosis:COVID-19 Attending: DAMION SHEN Current LOS: 9 Anticipated DC Date: Planned Disposition: Psych facility Primary Insurance: MEDICAID [place] Discharge Planning Comments: CM SPOKE WITH [facility] IN [place] AND THEY ARE NOT ACCEPTING ANY COVID POSITIVE PATIENTS. I AM SENDING UPDATED CLINICALS TO [facility]. THIS PATIENT WILL NOT BE ELIGABLE TO BE ACCEPTED TO [place] UNTIL COVID IS PAST 14 DAYS. IT WILL BE 14 DAYS 05/11/20. I WILL CONTINUE TO SEND UPDATES AND CHECK OTHER FACILITIES. CM TO FOLLOW AND ASSIST NEEDED. Acquisition Lead: Claudia Bustamante DCP- Discharge Planning Updated by [id number]: Gladys Velasco on 05/03/20 1:[address] Estelle at [facility] states they cannot accept Covid positive patient's until day 14. CM will continue to call dual diagnosis inpatient psychiatric facilities. DCP- Discharge Planning Updated by [id number]: Gladys Velasco on 05/03/20 12:[address] Patient Name: MELISSA DICKENS Admission Status: ER Accout number: [id number] Admission Date: 04-27-2020 : 1970 Admission Diagnosis:COVID-19 Attending: DAMION SHEN Current LOS: 6 Anticipated DC Date: Planned Disposition: Psych facility Primary Insurance: MEDICAID [place] Discharge Planning Comments: Cm called patient's room per COVID isolation protocol. Patient states she had been living at home with her mother. I informed her that her psychologist here recommends she goes to an inpatient psychiatric facility and she is agreeable to this. I have called [facility] and spoke with Alpa, she states no beds availability. [facility] states OK to send a referral, I faxed referral to Est[facility] at [facility]. [facility] patients. [facility] does not take Covid positive patients. I will continue to call inpatient facilities for placement. Acquisition Lead: Gladys Velasco DCPIA - Discharge Planning Initial Assessment Updated by [id number]: Gladys Velasco on 05/03/20 1:12 pm * Is the patient Alert and Oriented? No * Preadmission Environment Home with Family * ADLs Independent External Providers External Provider: OTHER-OTHER Next Contact Date: Service Request Date: Service Type: Resolution: Reviewer: Comments: Last DP export: 05/17/20 12:34 p Patient Name: MELISSA DICKENS Page [phone] at 1409 All edits/amendments must be made on the electronic document DICTATION DATE: 05/17/20 140 HOUSEKEEPING AID: HOLLEY 05/17/20 1409 RPT#: [id number] [place] DATE: STATUS: ADM IN [facility] [address] [place] [address] END OF REPORT
--- NOTE | 2020-05-17 14:33 | MORECARE ---
CASE MANAGEMENT DISCHARGE SUMMARY PATIENT: MELISSA DICKENS UNIT: [id number] ADM DATE: 04/27/20 AGE: 50 : 74 SEX: F ROOM/BED: D.9295 AUTHOR: ASHANTI,DOC PHYSICIAN: REFERRING PHYSICIAN: JOY SHEN MD DATE OF SERVICE: 05/17/20 Discharge Plan Patient Name: MELISSA DICKENS Facility: [facility]:[place] : 1970 Planned Disposition: Psych facility Anticipated Discharge Date: Discharge Date: Expected LOS: Initial Reviewer: [email or web address] Initial Review Date: 05/03/2020 Generated: 05/17/20 3:32 pm Comments DCP- Discharge Planning Updated by [email or web address]: Gladys Velasco on 05/17/20 1:[address] Received a call from [facility] that patient is too high for their unit. Johana states they have had her there before and are unable to meet her needs at this time. CM will continue to follow and assist with discharge planning/needs. [facility] - [facility] - NO [facility] - NO [facility] - NO [facility] - NO [facility] - No beds available [facility] - Pending - Need negative PCR [facility] - Pending DCP- Discharge Planning Updated by [id number]: Gladys Velasco on 05/17/20 1:[address] CM called [facility] and they are not taking patient's at this time. DCP- Discharge Planning Updated by [id number]: Gladys Velasco on 05/17/20 1:[address] CM received a call from Kimmy at [facility] in [place] that they could not accept the patient because she "would not be a good fit" with the other clientele at this time. I called [facility] and called [facility] and spoke with Zoe and fortunato tal[facility]a. Zoe states she will need a current negative PCR to be accepted to their unit. I called patient's mother and received an answering machine. I called patient and informed her that [facility] was not accepting her, but I had reached out to [facility] and [facility] at this time. I informed patient's nurse, Quiana, that I would need a repeat PCR Covid test for placement. I spoke with Zonia at [facility] and referral faxed. CM will continue to follow and assist with DC planning/needs. DCP- Discharge Planning Updated by [id number]: Gladys Velasco on 05/17/20 8:[address] CM called [facility] and spoke with Kimmy. Kimmy states to resend all clinical with updated lab. CM sent clinical with updated labs. CM will continue to follow and assist with discharge planning/needs. DCP- Discharge Planning Updated by [email or web address]: Alyse Tejeda on 05/16/20 1:[address] CM called [facility] to check on patient status on admit for Wednesday. CM spoke with Kimmy and she spoke with Domo. CM was told that they would not accept any updates until tomorrow. They would not give CM any indication on whether they would have a bed or not tomorrow. Will need to send a new referral packet in am. DCP- Discharge Planning Updated by [id number]: Gladys Velasco on 05/14/20 1:[address] Domo from [facility] at [facility] states they can clinically accept on 05/17 or later if bed available. He is unable to say if a bed will still be available on the . DCP- Discharge Planning Updated by [email or web address]: Gladys Velasco on 05/14/20 11:[address] Alpa from [facility] declined admission. States we do not take positive Covid patients. CM has already sent a referral to [facility] as well in [place]. DCP- Discharge Planning Updated by [id number]: Gladys Velasco on 05/14/20 10:[address] CM called [facility] to check on referral and they state they did not receive the fax. Cm faxed referral again today. CM called [facility] in [facility] and faxed referral. DCP- Discharge Planning Updated by [email or web address]: Alyse Tejeda on 05/13/20 11:[address] CM sent referral to [facility] and later received a call back that they had denied her because she exceeds their capabilities. CM called and sent referral pack to [facility] awaiting determination. DCP- Discharge Planning Updated by [id number]: Alyse Tejeda on 05/13/20 11:[address] Psych re-eval is still stating patient is needing psych placement CM will send out referral packets out today for placement. DCP- Discharge Planning Updated by [email or web address]: Alyse Tejeda on 05/13/20 11:[address] LATE ENTRY 05/11/20 CM called [facility] to check status of bed availability. CM was told to send over new packet and they would call back with determination later today. CM received a call back @ [phone] that patient was denied. The nurse stated that the packet was reviewed by the medical office representative and residential door unit installer and they denied acceptance. CM wasn't given any explanation as to why she was denied. CM spoke with Georgia HAWTHORNE about getting a psych re-eval to see if patient is still requiring psych placement since the last note was on 04/30/20. CM will continue to follow and assist with discharge planning / needs. DCP- Discharge Planning Updated by [id number]: Gladys Velasco on 05/08/20 12:[address] CM called [facility] and spoke with Glenny. Glenny states they will not have an opening until Wednesday and to send a whole new referral on Wednesday. Possible discharge to [facility] on Wednesday. DCP- Discharge Planning Updated by [id number]: Claudia Bustamante on 05/06/20 1:[address] Patient Name: MELISSA DICKENS Admission Status: Accout number: [id number] Admission Date: 04-27-2020 : 1970 Admission Diagnosis:COVID-19 Attending: DAMION SHEN Current LOS: 9 Anticipated DC Date: Planned Disposition: Psych facility Primary Insurance: MED[place]ID [place] Discharge Planning Comments: CM SPOKE WITH [facility] IN [place] AND THEY ARE NOT ACCEPTING ANY COVID POSITIVE PATIENTS. I AM SENDING UPDATED CLINICALS TO [facility]. THIS PATIENT WILL NOT BE ELIGABLE TO BE ACCEPTED TO [facility] UNTIL COVID IS PAST 14 DAYS. IT WILL BE 14 DAYS 05/11/20. I WILL CONTINUE TO SEND UPDATES AND CHECK OTHER FACILITIES. CM TO FOLLOW AND ASSIST NEEDED. Tag Maker: Claudia Bustamante DCP- Discharge Planning Updated by [id number]: Gladys Velasco on 05/03/20 1:[address] Estelle at [facility] states they cannot accept Covid positive patient's until day 14. CM will continue to call dual diagnosis inpatient psychiatric facilities. DCP- Discharge Planning Updated by [email or web address]: Gladys Velasco on 05/03/20 12:[address] Patient Name: MELISSA DICKENS Admission Status: ER Accout number: [id number] Admission Date: 04-27-2020 : 1970 Admission Diagnosis:COVID-19 Attending: DAMION SHEN Current LOS: 6 Anticipated DC Date: Planned Disposition: Psych facility Primary Insurance: [place]ID [place] Discharge Planning Comments: Cm called patient's room per COVID isolation protocol. Patient states she had been living at home with her mother. I informed her that her psychologist here recommends she goes to an inpatient psychiatric facility and she is agreeable to this. I have called [facility] and spoke with Alpa, she states no beds availability. [facility] states OK to send a referral, I faxed referral to [facility]. [facility] not take [facility] positive patients. [facility] not take [facility] positive [facility]. I will continue to call inpatient facilities for placement. Tag Maker: Gladys Velasco DCPIA - Discharge Planning Initial Assessment Updated by [email or web address]: Gladys Velasco on 05/03/20 1:12 pm * Is the patient Alert and Oriented? No * Preadmission Environment Home with Family * ADLs Independent Last DP export: 05/17/20 1:10 p Patient Name: MELISSA DICKENS Page [id number] at 1433 All edits/amendments must be made on the electronic document DICTATION DATE: 05/17/201431 VALVE STEAMER: HOLLEY 05/17/20 143 RPT#: [id number] DC DATE: STATUS: ADM IN [facility] [address] [place] [address] END OF REPORT
[2020-05-17 15:41] VITALS: BP 130/80
[2020-05-17 19:50] VITALS: BP 141/84
[2020-05-18 08:11] VITALS: BP 125/70
[2020-05-18 10:50] VITALS: BP 101/59
[2020-05-18 15:08] VITALS: BP 111/66
--- NOTE | 2020-05-18 20:00 | NUR ---
GRUNTING AND LOUD NOISES HEARD IN [facility]. UPON ENTERING PT SLUMPTED OVER ON BED, FROTHY SECREATIONS OBSERVED FROM MOUTH. PT UNRESPONSIVE TO PAINFUL OR VERBL STIMULI. SHALLOW BREATHING AND BOUNDING PULSE PRESENT. [facility] RESONSE CALLED.
[2020-05-18 20:30] VITALS: BP 123/74
[2020-05-18 20:55] LABS: ANION GAP 21.3 mmol/L (8-16); CARBAMAZEPINE (TEGRETOL) 4.7 ug/mL (4.0-12.0); CARBON DIOXIDE 19.2 mmol/L (21.0-32.0); CREATININE - SERUM 1.2 mg/dL (0.6-1.3); POTASSIUM - SERUM 4.5 mmol/L (3.5-5.1)
[2020-05-19 00:30] VITALS: BP 118/84
[2020-05-19 04:30] VITALS: BP 100/57
--- NOTE | 2020-05-19 07:20 | NUR ---
RECIEVE REPORT. ALERT AND ORIENTED X4. SITTING UP IN BED. DENIES ANY NEEDS. CONTINUE PLAN OF CARE AND SAFETY PRECAUTIONS.
[2020-05-19 08:00] VITALS: BP 130/75
--- NOTE | 2020-05-19 11:57 | MORECARE ---
CASE MANAGEMENT DISCHARGE SUMMARY PATIENT: MELISSA DICKENS UNIT: [id number] ADM DATE: 04/27/20 AGE: 50 : 74 SEX: F ROOM/BED: D.3785 AUTHOR: ASHANTI,DOC PHYSICIAN: REFERRING PHYSICIAN: JOY SHEN MD DATE OF SERVICE: 05/19/20 Discharge Plan Patient Name: MELISSA DICKENS Facility: [facility]:[place] : 1970 Planned Disposition: Psych facility Anticipated Discharge Date: Discharge Date: Expected LOS: Initial Reviewer: [id number] Initial Review Date: 05/03/2020 Generated: 05/19/20 12:56 pm Comments DCP- Discharge Planning Updated by [email or web address]: Gladys Velasco on 05/19/20 10:[address] Arnoldo Florezaver has informed he that [facility] has declined admission stating that patient does not meet their inpatient admission criteria. I spoke with Ruby Campos and she has called [facility] to get more information on patient from their last admission. CM called patient's mother and spoke with her. She states she lives with her and her 6 year old. States her daughter comes daily to give her a shot for her MS. States she see's a doctor in [place] and is unsure of doctors name. States she has been at [facility] and a psychiatric hospital in [place], unsure of which one. States she is ok with her returning home when/if she no longer needs inpatient psychiatric care. For now, I will continue to follow and assist with inpatient placement. DCP- Discharge Planning Updated by [id number]: Gladys Velasco on 05/17/20 1:[address] Received a call from Johana that patient is too high for their unit. Johana states they have had her there before and are unable to meet her needs at this time. CM will continue to follow and assist with discharge planning/needs. [facility] - NO [facility] - NO [facility] - NO [facility] - NO [facility] - NO [facility] - No beds available [facility] - Pending - Need negative PCR [facility] - Pending DCP- Discharge Planning Updated by [id number]: Gladys Velasco on 05/17/20 1:[address] CM called [facility] and they are not taking patient's at this time. DCP- Discharge Planning Updated by [id number]: Gladys Velasco on 05/17/20 1:[address] KODAK received a call from Kimmy at [facility] in [place] that they could not accept the patient because she "would not be a good fit" with the other clientele at this time. I called [facility] and called [facility] and spoke with Zoe and fortunato talavera. Zoe states she will need a current negative PCR to be accepted to their unit. I called patient's mother and received an answering machine. I called patient and informed her that [facility] was not accepting her, but I had reached out to [facility] and [facility] at this time. I informed patient's nurse, Quiana, that I would need a repeat PCR Covid test for placement. I spoke with Zonia at [facility] and referral faxed. CM will continue to follow and assist with DC planning/needs. DCP- Discharge Planning Updated by [id number]: Gladys Velasco on 05/17/20 8:[address] CM called [facility] and spoke with Kimmy. Kimmy states to resend all clinical with updated lab. CM sent clinical with updated labs. CM will continue to follow and assist with discharge planning/needs. DCP- Discharge Planning Updated by [id number]: Alyse Tejeda on 05/16/20 1:[address] CM called [facility] @ [facility] to check on patient status on admit for Wednesday. CM spoke with Kimmy and she spoke with Domo. CM was told that they would not accept any updates until tomorrow. They would not give CM any indication on whether they would have a bed or not tomorrow. Will need to send a new referral packet in am. DCP- Discharge Planning Updated by [id number]: Gladys Velasco on 05/14/20 1:[address] Domo from [facility] at [facility] states they can clinically accept on 05/17 or later if bed available. He is unable to say if a bed will still be available on the . DCP- Discharge Planning Updated by [id number]: Gladys Velasco on 05/14/20 11:[address] Alpa from [facility] declined admission. States we do not take positive Covid patients. CM has already sent a referral to [facility] as well in [place]. DCP- Discharge Planning Updated by [id number]: Gladys Velasco on 05/14/20 10:[address] CM called [facility] to check on referral and they state they did not receive the fax. Cm faxed referral again today. CM called [facility] in [facility] and faxed referral. DCP- Discharge Planning Updated by [id number]: Alyse Tejeda on 05/13/20 11:[address] CM sent referral to [facility] and later received a call back that they had denied her because she exceeds their capabilities. CM called and sent referral pack to [facility] awaiting determination. DCP- Discharge Planning Updated by [id number]: Alyse Tejeda on 05/13/20 11:[address] Psych re-eval is still stating patient is needing psych placement CM will send out referral packets out today for placement. DCP- Discharge Planning Updated by [id number]: Alyse Tejeda on 05/13/20 11:[address] LATE ENTRY 05/11/20 CM called [facility] to check status of bed availability. CM was told to send over new packet and they would call back with determination later today. CM received a call back @ [phone] that patient was denied. The nurse stated that the packet was reviewed by the manager medical writing and community outreach director and they denied acceptance. CM wasn't given any explanation as to why she was denied. CM spoke with Georgia HAWTHORNE about getting a psych re-eval to see if patient is still requiring psych placement since the last note was on 04/30/20. CM will continue to follow and assist with discharge planning / needs. DCP- Discharge Planning Updated by [id number]: Gladys Velasco on 05/08/20 12:[address] CM called [facility] and spoke with Glenny. [facility]enny states they will not have an opening until Wednesday and to send a whole new referral on Wednesday. Possible discharge to [facility] on Wednesday. DCP- Discharge Planning Updated by [id number]: Claudia Bustamante on 05/06/20 1:[address] Patient Name: MELISSA DICKENS Admission Status: ER Accout number: [id number] Admission Date: 04-27-2020 : 1970 Admission Diagnosis:COVID-19 Attending: DAMION SHEN Current LOS: 9 Anticipated DC Date: Planned Disposition: Psych facility Primary Insurance: MEDICAID [place] Discharge Planning Comments: CM SPOKE WITH [facility] IN [place] AND THEY ARE NOT ACCEPTING ANY COVID POSITIVE PATIENTS. I AM SENDING UPDATED CLINICALS TO [facility]. THIS PATIENT WILL NOT BE ELIGABLE TO BE ACCEPTED TO [facility] UNTIL COVID IS PAST 14 DAYS. IT WILL BE 14 DAYS 05/11/20. I WILL CONTINUE TO SEND UPDATES AND CHECK OTHER FACILITIES. CM TO FOLLOW AND ASSIST NEEDED. Special Education Math Teacher: Claudia Bustamante DCP- Discharge Planning Updated by [id number]: Gladys Velasco on 05/03/20 1:[address] Estelle at [facility] states they cannot accept Covid positive patient's until day 14. CM will continue to call dual diagnosis inpatient psychiatric facilities. DCP- Discharge Planning Updated by [email or web address]: Gladys Velasco on 05/03/20 12:[address] Patient Name: MELISSA DICKENS Admission Status: ER Accout number: [id number] Admission Date: 04-27-2020 : 1970 Admission Diagnosis:COVID-19 Attending: DAMION SHEN Current LOS: 6 Anticipated DC Date: Planned Disposition: Psych facility Primary Insurance: MEDICAID [place] Discharge Planning Comments: Cm called patient's room per COVID isolation protocol. Patient states she had been living at home with her mother. I informed her that her psychologist here recommends she goes to an inpatient psychiatric facility and she is agreeable to this. I have called [facility] and spoke with Alpa, she states no beds availability. [facility] states OK to send a referral, I faxed referral to Estelle at [facility]. [facility] does not take Covid positive patients. [facility] does not take Covid positive patients. I will continue to call inpatient facilities for placement. Special Education Math Teacher: Gladys Velasco DCPIA - Discharge Planning Initial Assessment Updated by [id number]: Gladys Velasco on 05/03/20 1:12 pm * Is the patient Alert and Oriented? No * Preadmission Environment Home with Family * ADLs Independent Last DP export: 05/17/20 1:33 p Patient Name: MELISSA DICKENS Page [id number] at 1157 All edits/amendments must be made on the electronic document DICTATION DATE: 05/19/20 1156 CHEMICAL TEST ENGINEER: HOLLEY 05/19/20 1156 RPT#: [id number] DC DATE: STATUS: ADM IN [facility] [address] [place] [address] END OF REPORT
[2020-05-19 12:00] VITALS: BP 128/79
--- NOTE | 2020-05-19 12:50 | MORECARE ---
CASE MANAGEMENT DISCHARGE SUMMARY PATIENT: MELISSA DICKENS UNIT: [id number] ADM DATE: 04/27/20 AGE: 50 : 74 SEX: F ROOM/BED: D.2375 AUTHOR: ASHANTI,DOC PHYSICIAN: REFERRING PHYSICIAN: JOY SHEN MD DATE OF SERVICE: 05/19/20 Discharge Plan Patient Name: MELISSA DICKENS Facility: [facility]:[place] : 1970 Planned Disposition: Psych facility Anticipated Discharge Date: Discharge Date: Expected LOS: Initial Reviewer: [id number] Initial Review Date: 05/03/2020 Generated: 05/19/20 1:49 pm Comments DCP- Discharge Planning Updated by [id number]: Gladys Velasco on 05/19/20 10:[address] Arnoldo Florezaver has informed he that [facility] has declined admission stating that patient does not meet their inpatient admission criteria. I spoke with Ruby Campos and she has called [facility] to get more information on patient from their last admission. CM called patient's mother and spoke with her. She states she lives with her and her 6 year old. States her daughter comes daily to give her a shot for her MS. States she see's a doctor in [place] and is unsure of doctors name. States she has been at [facility] and a psychiatric hospital in [place], unsure of which one. States she is ok with her returning home when/if she no longer needs inpatient psychiatric care. For now, I will continue to follow and assist with inpatient placement. DCP- Discharge Planning Updated by [id number]: Gladys Velasco on 05/17/20 1:[address] Received a call from Johana that patient is too high for their unit. Johana states they have had her there before and are unable to meet her needs at this time. CM will continue to follow and assist with discharge planning/needs. [facility] - [facility] - NO [facility] - NO [facility] - NO [facility] - NO [facility] - No beds available [facility] - Pending - Need negative PCR [facility] - Pending DCP- Discharge Planning Updated by [id number]: Gladys Velasco on 05/17/20 1:[address] CM called [facility] and they are not taking patient's at this time. DCP- Discharge Planning Updated by [id number]: Gladys Velasco on 05/17/20 1:[address] KODAK received a call from Kimmy at [facility] in [place] that they could not accept the patient because she "would not be a good fit" with the other clientele at this time. I called [facility] and called [facility] and spoke with Zoe and fortunato talavera. Zoe states she will need a current negative PCR to be accepted to their unit. I called patient's mother and received an answering machine. I called patient and informed her that [facility] was not accepting her, but I had reached out to [facility] and [facility] at this time. I informed patient's nurse, Quiana, that I would need a repeat PCR Covid test for placement. I spoke with Zonia at [facility] and referral faxed. CM will continue to follow and assist with DC planning/needs. DCP- Discharge Planning Updated by [id number]: Gladys Velasco on 05/17/20 8:[address] CM called [facility] and spoke with Kimmy. Kimmy states to resend all clinical with updated lab. CM sent clinical with updated labs. CM will continue to follow and assist with discharge planning/needs. DCP- Discharge Planning Updated by [id number]: Alyse Tejeda on 05/16/20 1:[address] CM called [facility] @ [facility] to check on patient status on admit for Wednesday. CM spoke with Kimmy and she spoke with Domo. CM was told that they would not accept any updates until tomorrow. They would not give CM any indication on whether they would have a bed or not tomorrow. Will need to send a new referral packet in am. DCP- Discharge Planning Updated by [id number]: Gladys Velasco on 05/14/20 1:[address] Domo from [facility] at [facility] states they can clinically accept on 05/17 or later if bed available. He is unable to say if a bed will still be available on the . DCP- Discharge Planning Updated by [id number]: Gladys Velasco on 05/14/20 11:[address] Alpa from [facility] declined admission. States we do not take positive Covid patients. CM has already sent a referral to [facility] as well in [place]. DCP- Discharge Planning Updated by [id number]: Gladys Velasco on 05/14/20 10:[address] CM called [facility] to check on referral and they state they did not receive the fax. Cm faxed referral again today. CM called [facility] in [facility] and faxed referral. DCP- Discharge Planning Updated by [id number]: Alyse Tejeda on 05/13/20 11:[address] CM sent referral to [facility] and later received a call back that they had denied her because she exceeds their capabilities. CM called and sent referral pack to [facility] awaiting determination. DCP- Discharge Planning Updated by [id number]: Alyse Tejeda on 05/13/20 11:[address] Psych re-eval is still stating patient is needing psych placement CM will send out referral packets out today for placement. DCP- Discharge Planning Updated by [id number]: Alyse Tejeda on 05/13/20 11:[address] LATE ENTRY 05/11/20 CM called [facility] to check status of bed availability. CM was told to send over new packet and they would call back with determination later today. CM received a call back @ [phone] that patient was denied. The nurse stated that the packet was reviewed by the medical dir and critical care unit manager and they denied acceptance. CM wasn't given any explanation as to why she was denied. CM spoke with Georgia HAWTHORNE about getting a psych re-eval to see if patient is still requiring psych placement since the last note was on 04/30/20. CM will continue to follow and assist with discharge planning / needs. DCP- Discharge Planning Updated by [id number]: Gladys Velasco on 05/08/20 12:[address] CM called [facility] and spoke with Glenny. Glenny states they will not have an opening until Wednesday and to send a whole new referral on Wednesday. Possible discharge to [facility] on Wednesday. DCP- Discharge Planning Updated by [id number]: Claudia Bustamante on 05/06/20 1:[address] Patient Name: MELISSA DICKENS Admission Status: ER Accout number: [id number] Admission Date: 04-27-2020 : 1970 Admission Diagnosis:COVID-19 Attending: DAMION SHEN Current LOS: 9 Anticipated DC Date: Planned Disposition: Psych facility Primary Insurance: [place] Discharge Planning Comments: CM SPOKE WITH [facility] IN [place] AND THEY ARE NOT ACCEPTING ANY COVID POSITIVE PATIENTS. I AM SENDING UPDATED CLINICALS TO [facility]. THIS PATIENT WILL NOT BE ELIGABLE TO BE ACCEPTED TO [facility] UNTIL COVID IS PAST 14 DAYS. IT WILL BE 14 DAYS 05/11/20. I WILL CONTINUE TO SEND UPDATES AND CHECK OTHER FACILITIES. CM TO FOLLOW AND ASSIST NEEDED. Bag Repairer: Claudia Bustamante DCP- Discharge Planning Updated by [id number]: Gladys Velasco on 05/03/20 1:[address] Estelle at [facility] states they cannot accept Covid positive patient's until day 14. CM will continue to call dual diagnosis inpatient psychiatric facilities. DCP- Discharge Planning Updated by [id number]: Gladys Velasco on 05/03/20 12:[address] Patient Name: MELISSA DICKENS Admission Status: ER Accout number: [id number] Admission Date: 04-27-2020 : 1970 Admission Diagnosis:COVID-19 Attending: DAMION SHEN Current LOS: 6 Anticipated DC Date: Planned Disposition: Psych facility Primary Insurance: [place] Discharge Planning Comments: Cm called patient's room per COVID isolation protocol. Patient states she had been living at home with her mother. I informed her that her psychologist here recommends she goes to an inpatient psychiatric facility and she is agreeable to this. I have called [facility] and spoke with Alpa, she states no beds availability. [facility] states OK to send a referral, I faxed referral to Estelle at [facility]. [facility] does not take Covid positive patients. [facility] does not take Covid positive patients. I will continue to call inpatient facilities for placement. Bag Repairer: Gladys Velasco DCPIA - Discharge Planning Initial Assessment Updated by [id number]: Gladys Velasco on 05/03/20 1:12 pm * Is the patient Alert and Oriented? No * Preadmission Environment Home with Family * ADLs Independent External Providers External Provider: OTHER-OTHER Next Contact Date: Service Request Date: Service Type: Resolution: Reviewer: Comments: Last DP export: 05/19/20 10:57 a Patient Name: MELISSA DICKENS Page [id number] at 1250 All edits/amendments must be made on the electronic document DICTATION DATE: 05/19/20 1250 BUS DRIVER SUPERVISOR: HOLLEY 05/19/20 1250 RPT#: [id number] DC DATE: STATUS: ADM IN [facility] [address] [place] [address] END OF REPORT
--- NOTE | 2020-05-19 12:58 | MORECARE ---
CASE MANAGEMENT DISCHARGE SUMMARY PATIENT: MELISSA DICKENS UNIT: [id number] ADM DATE: 04/27/20 AGE: 50 : 74 SEX: F ROOM/BED: D.2125 AUTHOR: ASHANTIDOC PHYSICIAN: REFERRING PHYSICIAN: JOY SHEN MD DATE OF SERVICE: 05/19/20 Discharge Plan Patient Name: MELISSA DICKENS Facility: [facility]:[place] : 1970 Planned Disposition: Psych facility Anticipated Discharge Date: Discharge Date: Expected LOS: Initial Reviewer: [email or web address] Initial Review Date: 05/03/2020 Generated: 05/19/20 1:58 pm Comments DCP- Discharge Planning Updated by [id number]: Gladys Velasco on 05/19/20 11:[address] [facility] any outside referrals at this time. States they have no beds available. I called [facility] and spoke with Nicole and referral faxed to [phone]. I also called [facility] in [place] and spoke with Monika and faxed clinical to [phone]. DCP- Discharge Planning Updated by [id number]: Gladys Velasco on 05/19/20 10:[address] Arnoldo Barrera has informed he that [facility] has declined admission stating that patient does not meet their inpatient admission criteria. I spoke with Ruby Campos and she has called [facility] to get more information on patient from their last admission. CM called patient's mother and spoke with her. She states she lives with her and her 6 year old. States her daughter comes daily to give her a shot for her MS. States she see's a doctor in [place] and is unsure of doctors name. States she has been at [facility] and a psychiatric hospital in [place], unsure of which one. States she is ok with her returning home when/if she no longer needs inpatient psychiatric care. For now, I will continue to follow and assist with inpatient placement. DCP- Discharge Planning Updated by [id number]: Gladys Velasoc on 05/17/20 1:[address] Received a call from Johana that patient is too high for their unit. Johana states they have had her there before and are unable to meet her needs at this time. CM will continue to follow and assist with discharge planning/needs. [facility] - [facility] - NO [facility] - NO [facility] - NO [facility] - NO [facility] - No beds available [facility] - Pending - Need negative PCR [facility] - Pending DCP- Discharge Planning Updated by [id number]: Gladys Velasco on 05/17/20 1:[address] CM called [facility] and they are not taking patient's at this time. DCP- Discharge Planning Updated by [id number]: Gladys Velasco on 05/17/20 1:[address] CM received a call from Kimmy at [facility] in [place] that they could not accept the patient because she "would not be a good fit" with the other clientele at this time. I called [facility] and called [facility] and spoke with Zoe and fortunato talavera. Zoe states she will need a current negative PCR to be accepted to their unit. I called patient's mother and received an answering machine. I called patient and informed her that [facility] was not accepting her, but I had reached out to [facility] and [facility] at this time. I informed patient's nurse, Quiana, that I would need a repeat PCR Covid test for placement. I spoke with Zonia at [facility] and referral faxed. CM will continue to follow and assist with DC planning/needs. DCP- Discharge Planning Updated by [id number]: Gladys Portilloezequiel on 05/17/20 8:[address] CM called [facility] and spoke with Kimmy. Kimmy states to resend all clinical with updated lab. CM sent clinical with updated labs. CM will continue to follow and assist with discharge planning/needs. DCP- Discharge Planning Updated by [id number]: Alyse Tejeda on 05/16/20 1:[address] CM called [facility] @ [facility] to check on patient status on admit for Wednesday. CM spoke with Kimmy and she spoke with Domo. CM was told that they would not accept any updates until tomorrow. They would not give CM any indication on whether they would have a bed or not tomorrow. Will need to send a new referral packet in am. DCP- Discharge Planning Updated by [id number]: Gladys Velasco on 05/14/20 1:[address] Domo from [facility] states they can clinically accept on 05/17 or later if bed available. He is unable to say if a bed will still be available on the . DCP- Discharge Planning Updated by [id number]: Gladys Velasco on 05/14/20 11:[address] Alpa from [facility] declined admission. States we do not take positive Covid patients. CM has already sent a referral to [facility] as well in [place]. DCP- Discharge Planning Updated by [id number]: Gladys Velasco on 05/14/20 10:[address] CM called [facility] to check on referral and they state they did not receive the fax. Cm faxed referral again today. CM called [facility] in [place] and faxed referral. DCP- Discharge Planning Updated by [id number]: Alyse Tejeda on 05/13/20 11:[address] CM sent referral to [facility] and later received a call back that they had denied her because she exceeds their capabilities. CM called and sent referral pack to [facility] awaiting determination. DCP- Discharge Planning Updated by [id number]: Alyse Tejeda on 05/13/20 11:[address] Psych re-eval is still stating patient is needing psych placement CM will send out referral packets out today for placement. DCP- Discharge Planning Updated by [id number]: Alyse Tejeda on 05/13/20 11:[address] LATE ENTRY 05/11/20 CM called [facility] to check status of bed availability. CM was told to send over new packet and they would call back with determination later today. CM received a call back @ [phone] that patient was denied. The nurse stated that the packet was reviewed by the medical detail representative and assembler unit and they denied acceptance. CM wasn't given any explanation as to why she was denied. CM spoke with Georgia HAWTHORNE about getting a psych re-eval to see if patient is still requiring psych placement since the last note was on 04/30/20. CM will continue to follow and assist with discharge planning / needs. DCP- Discharge Planning Updated by [id number]: Gladys Velasco on 05/08/20 12:[address] CM called [facility] and spoke with Glenny. Glenny states they will not have an opening until Wednesday and to send a whole new referral on Wednesday. Possible discharge to [facility] on Wednesday. DCP- Discharge Planning Updated by [id number]: Claudia Bustamante on 05/06/20 1:[address] Patient Name: MELISSA DICKENS Admission Status: ER Accout number: [id number] Admission Date: 04-27-2020 : 1970 Admission Diagnosis:COVID-19 Attending: DAMION SHEN Current LOS: 9 Anticipated DC Date: Planned Disposition: Psych facility Primary Insurance: [place] Discharge Planning Comments: CM SPOKE WITH [facility] IN [place] AND THEY ARE NOT ACCEPTING ANY COVID POSITIVE PATIENTS. I AM SENDING UPDATED CLINICALS TO [facility]. THIS PATIENT WILL NOT BE ELIGABLE TO BE ACCEPTED TO [facility] UNTIL COVID IS PAST 14 DAYS. IT WILL BE 14 DAYS 05/11/20. I WILL CONTINUE TO SEND UPDATES AND CHECK OTHER FACILITIES. CM TO FOLLOW AND ASSIST NEEDED. Streaming Media Specialist: Claudia Bustamante DCP- Discharge Planning Updated by [id number]: Gladys Bandarezequiel on 05/03/20 1:[address] Estelle at [facility] states they cannot accept Covid positive patient's until day 14. CM will continue to call dual diagnosis inpatient psychiatric facilities. DCP- Discharge Planning Updated by [id number]: Gladys Portilloezequiel on 05/03/20 12:[address] Patient Name: MELISSA DICKENS Admission Status: ER Accout number: [id number] Admission Date: 04-27-2020 : 1970 Admission Diagnosis:COVID-19 Attending: DAIMON SHEN Current LOS: 6 Anticipated DC Date: Planned Disposition: Psych facility Primary Insurance: [place] Discharge Planning Comments: Cm called patient's room per COVID isolation protocol. Patient states she had been living at home with her mother. I informed her that her psychologist here recommends she goes to an inpatient psychiatric facility and she is agreeable to this. I have called [facility] and spoke with Alpa, she states no beds availability. [facility] states OK to send a referral, I faxed referral to Estelle at [facility]. [facility] does not take Covid positive patients. [facility]. I will continue to call inpatient facilities for placement. Streaming Media Specialist: Gladys Velasco DCPIA - Discharge Planning Initial Assessment Updated by [id number]: Gladys Velasco on 05/03/20 1:12 pm * Is the patient Alert and Oriented? No * Preadmission Environment Home with Family * ADLs Independent External Providers External Provider: OTHER-OTHER Next Contact Date: Service Request Date: Service Type: Resolution: Reviewer: Comments: Last DP export: 05/19/20 11:50 a Patient Name: MELISSA DICKENS Page 30719 at 1258 All edits/amendments must be made on the electronic document DICTATION DATE: 05/19/201257 IDENTITY ACCESS MANAGEMENT ARCHITECT: HOLLEY 05/19/20 1258 RPT#: [id number] DC DATE: STATUS: ADM IN [facility] [address] [place] [address] END OF REPORT
--- NOTE | 2020-05-19 15:17 | MORECARE ---
CASE MANAGEMENT DISCHARGE SUMMARY PATIENT: MELISSA DICKENS UNIT: [id number] ADM DATE: 04/27/20 AGE: 50 : 74 SEX: F ROOM/BED: D.6305 AUTHOR: ASHANTIDOC PHYSICIAN: REFERRING PHYSICIAN: JOY SHEN MD DATE OF SERVICE: 05/19/20 Discharge Plan Patient Name: MELISSA DICKENS Facility[facility]:[place] : 1970 Planned Disposition: Psych facility Anticipated Discharge Date: Discharge Date: Expected LOS: Initial Reviewer: [email or web address] Initial Review Date: 05/03/2020 Generated: 05/19/20 4:16 pm Comments DCP- Discharge Planning Updated by [id number]: Gladys Velasco on 05/19/20 2:[address] Wendy from [facility] in [place] called with questions on possible admission. Wendy states she will call her physician and call me back with an answer on admission. CM will continue to follow and assist with DC planning/needs. [facility] in [place] - [phone] DCP- Discharge Planning Updated by [id number]: Gladys Velasco on 05/19/20 11:[address] [facility] any outside referrals at [facility] time. States they have no beds available. I called [facility] and spoke with Nicole and referral faxed to [phone]. I also called [facility] in [place] and spoke with Monika and faxed clinical to [phone]. DCP- Discharge Planning Updated by [id number]: Gladys Velasco on 05/19/20 10:[address] Arnoldo Barrera has informed he that [facility] has declined admission stating that patient does not meet their inpatient admission criteria. I spoke with Ruby Campos and she has called [facility] to get more information on patient from their last admission. CM called patient's mother and spoke with her. She states she lives with her and her 6 year old. States her daughter comes daily to give her a shot for her MS. States she see's a doctor in [place] and is unsure of doctors name. States she has been at [facility] and a psychiatric hospital in [place], unsure of which one. States she is ok with her returning home when/if she no longer needs inpatient psychiatric care. For now, I will continue to follow and assist with inpatient placement. DCP- Discharge Planning Updated by [id number]: Gladys Portilloezequiel on 05/17/20 1:[address] Received a call from [facility] that patient is too high for their unit. Johana states they have had her there before and are unable to meet her needs at this time. CM will continue to follow and assist with discharge planning/needs. [facility] - NO [facility] - NO [facility] - NO [place] - NO [place] - NO [facility] - No beds available [facility] - Pending - Need negative PCR [facility] - Pending DCP- Discharge Planning Updated by [id number]: Gladys Krista on 05/17/20 1:[address] CM called [facility] and they are not taking patient's at this time. DCP- Discharge Planning Updated by [id number]: Gladys Velasco on 05/17/20 1:[address] CM received a call from Kimmy at [facility] in [place] that they could not accept the patient because she "would not be a good fit" with the other clientele at this time. I called [facility] and called [facility] and spoke with Zoe and fortunato talavera. Zoe states she will need a current negative PCR to be accepted to their unit. I called patient's mother and received an answering machine. I called patient and informed her that [facility] was not accepting her, but I had reached out to [facility] and [facility] at this time. I informed patient's nurse, Quiana, that I would need a repeat PCR Covid test for placement. I spoke with Zonia at [facility] and referral faxed. CM will continue to follow and assist with DC planning/needs. DCP- Discharge Planning Updated by [id number]: Gladys Velasco on 05/17/20 8:[address] CM called [facility] and spoke with Kimmy. Kimmy states to resend all clinical with updated lab. CM sent clinical with updated labs. CM will continue to follow and assist with discharge planning/needs. DCP- Discharge Planning Updated by [id number]: Alyse Tejeda on 05/16/20 1:[address] CM called [facility] @ [facility] to check on patient status on admit for Wednesday. CM spoke with Kimmy and she spoke with Domo. CM was told that they would not accept any updates until tomorrow. They would not give CM any indication on whether they would have a bed or not tomorrow. Will need to send a new referral packet in am. DCP- Discharge Planning Updated by [id number]: Gladys Velasco on 05/14/20 1:[address] Domo from [facility] at [facility] states they can clinically accept on 05/17 or later if bed available. He is unable to say if a bed will still be available on the . DCP- Discharge Planning Updated by [id number]: Gladys Velasco on 05/14/20 11:[address] Alpa from [facility] declined admission. States we do not take positive Covid patients. CM has already sent a referral to [facility] as well in [place]. DCP- Discharge Planning Updated by [email or web address]: Gladys Velasco on 05/14/20 10:[address] CM called [facility] to check on referral and they state they did not receive the fax. Cm faxed referral again today. CM called [facility] in [facility] and faxed referral. DCP- Discharge Planning Updated by [email or web address]: Alyse Tejeda on 05/13/20 11:[address] CM sent referral to [facility] and later received a call back that they had denied her because she exceeds their capabilities. CM called and sent referral pack to [facility] awaiting determination. DCP- Discharge Planning Updated by [id number]: Alyse Tejeda on 05/13/20 11:[address] Psych re-eval is still stating patient is needing psych placement CM will send out referral packets out today for placement. DCP- Discharge Planning Updated by [id number]: Alyse Tejeda on 05/13/20 11:[address] LATE ENTRY 05/11/20 CM called [facility] to check status of bed availability. CM was told to send over new packet and they would call back with determination later today. CM received a call back @ [phone] that patient was denied. The nurse stated that the packet was reviewed by the behavioral medical director and health unit clerk and they denied acceptance. CM wasn't given any explanation as to why she was denied. CM spoke with Georgia HAWTHORNE about getting a psych re-eval to see if patient is still requiring psych placement since the last note was on 04/30/20. CM will continue to follow and assist with discharge planning / needs. DCP- Discharge Planning Updated by [id number]: Gladys Velasco on 05/08/20 12:[address] CM called [facility] and spoke with Glenny. Glenny states they will not have an opening until Wednesday and to send a whole new referral on Wednesday. Possible discharge to [facility] on Wednesday. DCP- Discharge Planning Updated by [id number]: Claudia Bustamante on 05/06/20 1:[address] Patient Name: MELISSA DICKENS Admission Status: ER Accout number: [id number] Admission Date: 04-27-2020 : 1970 Admission Diagnosis:COVID-19 Attending: DAMION SHEN Current LOS: 9 Anticipated DC Date: Planned Disposition: Psych facility Primary Insurance: MEDICAID [place] Discharge Planning Comments: CM SPOKE WITH [facility] IN [place] AND THEY ARE NOT ACCEPTING ANY COVID POSITIVE PATIENTS. I AM SENDING UPDATED CLINICALS TO [facility]. THIS PATIENT WILL NOT BE ELIGABLE TO BE ACCEPTED TO [facility] UNTIL COVID IS PAST 14 DAYS. IT WILL BE 14 DAYS 05/11/20. I WILL CONTINUE TO SEND UPDATES AND CHECK OTHER FACILITIES. CM TO FOLLOW AND ASSIST NEEDED. Product Sales Representative: Claudia Bustamante DCP- Discharge Planning Updated by [id number]: Gladys Velasco on 05/03/20 1:[address] Estelle at [facility] states they cannot accept Covid positive patient's until day 14. CM will continue to call dual diagnosis inpatient psychiatric facilities. DCP- Discharge Planning Updated by [id number]: Gladys Velasco on 05/03/20 12:[address] Patient Name: MELISSA DICKENS Admission Status: ER Accout number: [id number] Admission Date: 04-27-2020 : 1970 Admission Diagnosis:COVID-19 Attending: DAMION SHEN Current LOS: 6 Anticipated DC Date: Planned Disposition: Psych facility Primary Insurance: MEDICAID [place] Discharge Planning Comments: Cm called patient's room per COVID isolation protocol. Patient states she had been living at home with her mother. I informed her that her psychologist here recommends she goes to an inpatient psychiatric facility and she is agreeable to this. I have called [facility] and spoke with Alpa, she states no beds availability. [facility] states OK to send a referral, I faxed referral to Estelle at [facility]. [facility] not [facility] positive patients. [facility] not [facility] positive patients. I will continue to call inpatient facilities for placement. Product Sales Representative: Gladys Velasco DCPIA - Discharge Planning Initial Assessment Updated by [id number]: Gladys Velasco on 05/03/20 1:12 pm * Is the patient Alert and Oriented? No * Preadmission Environment Home with Family * ADLs Independent Last DP export: 05/19/20 11:58 a Patient Name: MELISSA DICKENS Page 15123 at 1517 All edits/amendments must be made on the electronic document DICTATION DATE: 05/19/201515 CASING SEWER: HOLLEY 05/19/20 151 RPT#: [id number] DC DATE: STATUS: ADM IN [facility] [address] [place] [address] END OF REPORT
--- NOTE | 2020-05-19 15:32 | MORECARE ---
CASE MANAGEMENT DISCHARGE SUMMARY PATIENT: MELISSA DICKENS UNIT: [id number] ADM DATE: 04/27/20 AGE: 50 : 74 SEX: F ROOM/BED: D.0915 AUTHOR: ASHANTIDOC PHYSICIAN: REFERRING PHYSICIAN: JOY SHEN MD DATE OF SERVICE: 05/19/20 Discharge Plan Patient Name: MELISSA DICKENS Facility: [facility]:[place] : 1970 Planned Disposition: Psych facility Anticipated Discharge Date: Discharge Date: Expected LOS: Initial Reviewer: [id number] Initial Review Date: 05/03/2020 Generated: 05/19/20 4:32 pm Comments DCP- Discharge Planning Updated by [id number]: Gladys Velasco on 05/19/20 2:[address] Wendy called from [facility] in [place]. Her physician cardiac surgeon has declined admission stating she does not fit with current group of patient's because of aggressive behavior and new addition of Ativan. I informed Wendy that she is not currently exhibiting any aggressive behavior, but she states they are declining. [facility] in [place] - Denied admission. DCP- Discharge Planning Updated by [id number]: Gladys Velasco on 05/19/20 2:[address] Wendy from [facility] in [place] called with questions on possible admission. Wendy states she will call her physician and call me back with an answer on admission. CM will continue to follow and assist with DC planning/needs. [facility] in [place] - [phone] DCP- Discharge Planning Updated by [id number]: Gladys Portilloezequiel on 05/19/20 11:[address] [facility] they are not taking any outside referrals at this time. States they have no beds available. I called [facility] and spoke with Nicole and referral faxed to [phone]. I also called [facility] in [place] and spoke with Monika and faxed clinical to [phone]. DCP- Discharge Planning Updated by [id number]: Gladys Portilloezequiel on 05/19/20 10:[address] Arnoldo Barrera has informed he that [facility] has declined admission stating that patient does not meet their inpatient admission criteria. I spoke with Rubykim Campos and she has called [facility] to get more information on patient from their last admission. CM called patient's mother and spoke with her. She states she lives with her and her 6 year old. States her daughter comes daily to give her a shot for her MS. States she see's a doctor in [place] and is unsure of doctors name. States she has been at [facility] and a psychiatric hospital in [place], unsure of which one. States she is ok with her returning home when/if she no longer needs inpatient psychiatric care. For now, I will continue to follow and assist with inpatient placement. DCP- Discharge Planning Updated by [id number]: Gladys Velasco on 05/17/20 1:[address] Received a call from [facility] that patient is too high for their unit. Johana states they have had her there before and are unable to meet her needs at this time. CM will continue to follow and assist with discharge planning/needs. [facility] - [facility] - NO [facility] - NO [facility] - NO [place] - NO [facility] - No beds available [facility] - Pending - Need negative PCR [facility] - Pending DCP- Discharge Planning Updated by [id number]: Gladys Velasco on 05/17/20 1:[address] CM called [facility] and they are not taking patient's at this time. DCP- Discharge Planning Updated by [id number]: Gladys Vealsco on 05/17/20 1:[address] CM received a call from Kimmy at [facility] in [place] that they could not accept the patient because she "would not be a good fit" with the other clientele at this time. I called [facility] and called [facility] and spoke with Zoe and fortunato talavera. Zoe states she will need a current negative PCR to be accepted to their unit. I called patient's mother and received an answering machine. I called patient and informed her that [facility] was not accepting her, but I had reached out to [facility] and [facility] at this time. I informed patient's nurse, Quiana, that I would need a repeat PCR Covid test for placement. I spoke with Zonia at [facility] and referral faxed. CM will continue to follow and assist with DC planning/needs. DCP- Discharge Planning Updated by [id number]: Gladys Velasco on 05/17/20 8:[address] CM called [facility] and spoke with Kimmy. Kimmy states to resend all clinical with updated lab. CM sent clinical with updated labs. CM will continue to follow and assist with discharge planning/needs. DCP- Discharge Planning Updated by [id number]: Alyse Tejeda on 05/16/20 1:[address] CM called [facility] to check on patient status on admit for Wednesday. CM spoke with Kimmy and she spoke with Domo. CM was told that they would not accept any updates until tomorrow. They would not give CM any indication on whether they would have a bed or not tomorrow. Will need to send a new referral packet in am. DCP- Discharge Planning Updated by [id number]: Gladys Velasco on 05/14/20 1:[address] Domo from [facility] at [facility] states they can clinically accept on 05/17 or later if bed available. He is unable to say if a bed will still be available on the . DCP- Discharge Planning Updated by [id number]: Gladys Velasco on 05/14/20 11:[address] Alpa from [facility] declined admission. States we do not take positive Covid patients. CM has already sent a referral to [facility] as well in [place]. DCP- Discharge Planning Updated by [id number]: Gladys Velasco on 05/14/20 10:[address] CM called [facility] to check on referral and they state they did not receive the fax. Cm faxed referral again today. CM called [facility] in [facility] and faxed referral. DCP- Discharge Planning Updated by [email or web address]: Alyse Tejeda on 05/13/20 11:[address] CM sent referral to [facility] and later received a call back that they had denied her because she exceeds their capabilities. CM called and sent referral pack to [facility] awaiting determination. DCP- Discharge Planning Updated by [id number]: Alyse Tejeda on 05/13/20 11:[address] Psych re-eval is still stating patient is needing psych placement CM will send out referral packets out today for placement. DCP- Discharge Planning Updated by [id number]: Alyse Tejeda on 05/13/20 11:[address] LATE ENTRY 05/11/20 CM called [facility] to check status of bed availability. CM was told to send over new packet and they would call back with determination later today. CM received a call back @ [phone] that patient was denied. The nurse stated that the packet was reviewed by the medical appointment scheduler and manager community outreach and they denied acceptance. CM wasn't given any explanation as to why she was denied. CM spoke with Georgia HAWTHORNE about getting a psych re-eval to see if patient is still requiring psych placement since the last note was on 04/30/20. CM will continue to follow and assist with discharge planning / needs. DCP- Discharge Planning Updated by [id number]: Gladys Velasco on 05/08/20 12:[address] CM called [facility] and spoke with Glenny. Glenny states they will not have an opening until Wednesday and to send a whole new referral on Wednesday. Possible discharge to [facility] on Wednesday. DCP- Discharge Planning Updated by [id number]: Claudia Bustamante on 05/06/20 1:[address] Patient Name: MELISSA DICKENS Admission Status: ER Accout number: [id number] Admission Date: 04-27-2020 : 1970 Admission Diagnosis:COVID-19 Attending: DAMION SHEN Current LOS: 9 Anticipated DC Date: Planned Disposition: Psych facility Primary Insurance: MEDICAID [place] Discharge Planning Comments: CM SPOKE WITH [facility] IN [place] AND THEY ARE NOT ACCEPTING ANY COVID POSITIVE PATIENTS. I AM SENDING UPDATED CLINICALS TO [facility]. THIS PATIENT WILL NOT BE ELIGABLE TO BE ACCEPTED TO [facility] UNTIL COVID IS PAST 14 DAYS. IT WILL BE 14 DAYS 05/11/20. I WILL CONTINUE TO SEND UPDATES AND CHECK OTHER FACILITIES. CM TO FOLLOW AND ASSIST NEEDED. Assembler Deck And Hull: Claudia Bustamante DCP- Discharge Planning Updated by [id number]: Gladys Velasco on 05/03/20 1:[address] Estelle at [facility] states they cannot accept Covid positive patient's until day 14. CM will continue to call dual diagnosis inpatient psychiatric facilities. DCP- Discharge Planning Updated by [id number]: Gladys Velasco on 05/03/20 12:[address] Patient Name: MELISSA DICKENS Admission Status: ER Accout number: [id number] Admission Date: 04-27-2020 : 1970 Admission Diagnosis:COVID-19 Attending: DAMION SHEN Current LOS: 6 Anticipated DC Date: Planned Disposition: Psych facility Primary Insurance: MEDICAID [place] Discharge Planning Comments: Cm called patient's room per COVID isolation protocol. Patient states she had been living at home with her mother. I informed her that her psychologist here recommends she goes to an inpatient psychiatric facility and she is agreeable to this. I have called [facility] and spoke with Alpa, she states no beds availability. [facility] states OK to send a referral, I faxed referral to Estelle at [facility]. [facility] does not take Covid positive patients. [facility] does not take Covid positive patients. I will continue to call inpatient facilities for placement. Assembler Deck And Hull: Gladys Velasco DCPIA - Discharge Planning Initial Assessment Updated by [id number]: Gladys Velasco on 05/03/20 1:12 pm * Is the patient Alert and Oriented? No * Preadmission Environment Home with Family * ADLs Independent Last DP export: 05/19/20 2:17 p Patient Name: MELISSA DICKENS Page [id number] at 1532 All edits/amendments must be made on the electronic document DICTATION DATE: 05/19/20 1532 CHROME WORKER: HOLLEY 05/19/20 1532 RPT#: [id number] DC DATE: STATUS: ADM IN [facility] [address] [place] [address] END OF REPORT
[2020-05-19 16:00] VITALS: BP 124/69
[2020-05-19 20:35] VITALS: BP 132/56
--- NOTE | 2020-05-20 03:52 | NUR ---
I have reviewed this patient and I concur with the Shift Assessment completed by the Licensed Practical Nurse today this shift.
--- NOTE | 2020-05-20 07:20 | NUR ---
RECIEVE REPORT. SITTING UP IN BED WATCHING TV. ALERT AND ORIENTED X4. NO SIGNS OF DISTRESS. DENIES ANY NEEDS. CONTINUE PLAN OF CARE AND SAFETY PRECAUTIONS.
[2020-05-20 07:40] VITALS: BP 126/74
[2020-05-20 09:26] LABS: ALBUMIN 2.9 g/dL (3.4-5.0); ALKALINE PHOSPHATASE 80 U/L (30-120); ALT (SGPT) 60 U/L (10-68); BILIRUBIN - TOTAL 0.18 mg/dL (0.2-1.3); CALCIUM 8.8 mg/dL (8.5-10.1); CHLORIDE - SERUM 102 mmol/L (98-107); MAGNESIUM - SERUM 1.9 mg/dL (1.8-2.4); PROTEIN - SERUM 7.3 g/dL (6.4-8.2); SODIUM 136 mmol/L (136-145)
[2020-05-20 10:01] LABS: BASOPHILS 0.1 % (0-2); EOSINOPHILS 0 % (0-7); HEMATOCRIT 38.3 % (36.0-48.0); HEMOGLOBIN 13.4 g/dL (12-16); IMMATURE GRANULOCYTES 0.3 % (0-5); LYMPHOCYTE ABS# 1.57 10x3/uL (1.18-3.74); LYMPHOCYTES 22.8 % (15-50); MCH 28.8 pg (26.0-34.0); MCV 82.2 fL (80.0-100.0); MONOCYTES 11.3 % (2-11); NEUTROPHIL ABS# 4.52 10x3/uL (1.56-6.13); NEUTROPHILS 65.5 % (40-80); PLATELET COUNT 159 10x3/uL (130-400); RBC 4.66 10x6/uL (4.00-5.40); RDW 14.6 % (11.5-14.5); WBC 6.9 10x3/uL (4.8-10.8)
[2020-05-20 10:10] LABS: CALC OSMOLALITY 271 mosm/kg (275-300); CREATININE - SERUM 0.7 mg/dL (0.6-1.3); GLUCOSE 83 mg/dL (74-106); POTASSIUM - SERUM 3.5 mmol/L (3.5-5.1); UREA NITROGEN 14 mg/dL (7-18); eGFR NON AFRICAN AMERICAN > 90 mL/min (90-120)
[2020-05-20 11:15] VITALS: BP 136/87
--- NOTE | 2020-05-20 13:50 | MORECARE ---
CASE MANAGEMENT DISCHARGE SUMMARY PATIENT: MELISSA DICKENS UNIT: [id number] ADM DATE: 04/27/20 AGE: 50 : 74 SEX: F ROOM/BED: D.1845 AUTHOR: ASHANTI,DOC PHYSICIAN: REFERRING PHYSICIAN: JOY SHEN MD DATE OF SERVICE: 05/20/20 Discharge Plan Patient Name: MELISSA DICKENS Facility: [facility]:[place] : 1970 Planned Disposition: Psych facility Anticipated Discharge Date: Discharge Date: Expected LOS: Initial Reviewer: [email or web address] Initial Review Date: 05/03/2020 Generated: 05/20/20 2:50 pm Comments DCP- Discharge Planning Updated by [id number]: Gladys Krista on 05/20/20 12:[address] Received a call from [facility] that patient is too high for their unit. Johana states they have had her there before and are unable to meet her needs at this time. CM will continue to follow and assist with discharge planning/needs. [facility] - NO [facility] - NO [facility] - NO [facility] - NO [facility] - NO [facility] - No beds available [facility] - Pending - Need negative PCR -NO [facility] - Pending DCP- Discharge Planning Updated by [id number]: Gladys Krista on 05/19/20 2:[address] Wendy called from [facility] in [place]. Her physician hospice care consultant has declined admission stating she does not fit with current group of patient's because of aggressive behavior and new addition of Ativan. I informed Wendy that she is not currently exhibiting any aggressive behavior, but she states they are declining. [facility] in [place] - Denied admission. DCP- Discharge Planning Updated by [id number]: Gladys Velasco on 05/19/20 2:[address] Wendy from [facility] in [place] called with questions on possible admission. eWndy states she will call her physician and call me back with an answer on admission. CM will continue to follow and assist with DC planning/needs. [facility] - [phone] DCP- Discharge Planning Updated by [id number]: Gladys Velasco on 05/19/20 11:[address] CM called [facility] states they are not taking any outside referrals at this time. States they have no beds available. I called [facility] and spoke with Nicole and referral faxed to [phone]. I also called [facility] in [place] and spoke with Monika and faxed clinical to [phone]. DCP- Discharge Planning Updated by [id number]: Gladys Velasco on 05/19/20 10:[address] Arnoldo Florezaver has informed he that [facility] has declined admission stating that patient does not meet their inpatient admission criteria. I spoke with Ruby Campos and she has called [facility] to get more information on patient from their last admission. CM called patient's mother and spoke with her. She states she lives with her and her 6 year old. States her daughter comes daily to give her a shot for her MS. States she see's a doctor in [place] and is unsure of doctors name. States she has been at [facility] and a psychiatric hospital in [place], unsure of which one. States she is ok with her returning home when/if she no longer needs inpatient psychiatric care. For now, I will continue to follow and assist with inpatient placement. DCP- Discharge Planning Updated by [id number]: Gladys Velasco on 05/17/20 1:[address] CM called [facility] and they are not taking patient's at this time. DCP- Discharge Planning Updated by [id number]: Gladys Velasco on 05/17/20 1:[address] CM received a call from Kimmy at [facility] in [place] that they could not accept the patient because she "would not be a good fit" with the other clientele at this time. I called [facility] and faxed clinical and called [facility] and spoke with Zoe and faxed clinical. Zoe states she will need a current negative PCR to be accepted to their unit. I called patient's mother and received an answering machine. I called patient and informed her that [facility] was not accepting her, but I had reached out to [facility] and [facility] at this time. I informed patient's nurse, Quiana, that I would need a repeat PCR Covid test for placement. I spoke with Zonia at [facility] and referral faxed. CM will continue to follow and assist with DC planning/needs. DCP- Discharge Planning Updated by [id number]: Gladys Velasco on 05/17/20 8:[address] CM called [facility] and spoke with Kimmy. Kimmy states to resend all clinical with updated lab. CM sent clinical with updated labs. CM will continue to follow and assist with discharge planning/needs. DCP- Discharge Planning Updated by [id number]: Alyse Tejeda on 05/16/20 1:[address] CM called [facility] to check on patient status on admit for Wednesday. CM spoke with Kimmy and she spoke with Domo. CM was told that they would not accept any updates until tomorrow. They would not give CM any indication on whether they would have a bed or not tomorrow. Will need to send a new referral packet in am. DCP- Discharge Planning Updated by [id number]: Gladys Velasco on 05/14/20 1:[address] Domo from [facility] at [facility] states they can clinically accept on 05/17 or later if bed available. He is unable to say if a bed will still be available on the . DCP- Discharge Planning Updated by [id number]: Gladys Velasco on 05/14/20 11:[address] Alpa from [facility] admission. States we do not take positive Covid patients. CM has already sent a referral to [facility] as well in [place]. DCP- Discharge Planning Updated by [id number]: Gladys Velasco on 05/14/20 10:[address] CM called [facility] to check on referral and they state they did not receive the fax. Cm faxed referral again today. CM called [facility] in [facility] and faxed referral. DCP- Discharge Planning Updated by [id number]: Alyse Tejeda on 05/13/20 11:[address] CM sent referral to [facility] and later received a call back that they had denied her because she exceeds their capabilities. CM called and sent referral pack to [facility] awaiting determination. DCP- Discharge Planning Updated by [id number]: Alyse Tejeda on 05/13/20 11:[address] Psych re-eval is still stating patient is needing psych placement CM will send out referral packets out today for placement. DCP- Discharge Planning Updated by [id number]: Alyse Tejeda on 05/13/20 11:[address] LATE ENTRY 05/11/20 CM called [facility] to check status of bed availability. CM was told to send over new packet and they would call back with determination later today. CM received a call back @ [phone] that patient was denied. The nurse stated that the packet was reviewed by the coroner/medical examiner and service unit operator oil well and they denied acceptance. CM wasn't given any explanation as to why she was denied. CM spoke with Georgia HAWTHORNE about getting a psych re-eval to see if patient is still requiring psych placement since the last note was on 04/30/20. CM will continue to follow and assist with discharge planning / needs. DCP- Discharge Planning Updated by [id number]: Gladys Velasco on 05/08/20 12:[address] CM called [facility] and spoke with Glenny. Glenny states they will not have an opening until Wednesday and to send a whole new referral on Wednesday. Possible discharge to [facility] on Wednesday. DCP- Discharge Planning Updated by [id number]: Claudia Bustamante on 05/06/20 1:[address] Patient Name: MELISSA DICKENS Admission Status: ER Accout number: [id number] Admission Date: 04-27-2020 : 1970 Admission Diagnosis:COVID-19 Attending: DAMION SHEN Current LOS: 9 Anticipated DC Date: Planned Disposition: Psych facility Primary Insurance: MED[place]ID [place] Discharge Planning Comments: CM SPOKE WITH [facility] IN [place] AND THEY ARE NOT ACCEPTING ANY COVID POSITIVE PATIENTS. I AM SENDING UPDATED CLINICALS TO [facility]. THIS PATIENT WILL NOT BE ELIGABLE TO BE ACCEPTED TO [facility] UNTIL COVID IS PAST 14 DAYS. IT WILL BE 14 DAYS 05/11/20. I WILL CONTINUE TO SEND UPDATES AND CHECK OTHER FACILITIES. CM TO FOLLOW AND ASSIST NEEDED. Speech Therapist Early Intervention: Claudia Bustamante DCP- Discharge Planning Updated by [id number]: Gladys Velasco on 05/03/20 1:[address] Estelle at [facility] states they cannot accept Covid positive patient's until day 14. CM will continue to call dual diagnosis inpatient psychiatric facilities. DCP- Discharge Planning Updated by [id number]: Gladys Velasco on 05/03/20 12:[address] Patient Name: MELISSA DICKENS Admission Status: ER Accout number: [id number] Admission Date: 04-27-2020 : 1970 Admission Diagnosis:COVID-19 Attending: DAMION SHEN Current LOS: 6 Anticipated DC Date: Planned Disposition: Psych facility Primary Insurance: MED[place]ID [place] Discharge Planning Comments: Cm called patient's room per COVID isolation protocol. Patient states she had been living at home with her mother. I informed her that her psychologist here recommends she goes to an inpatient psychiatric facility and she is agreeable to this. I have called [facility] and spoke with Alpa, she states no beds availability. [facility] states OK to send a referral, I faxed referral to Est[facility]. [facility] does not take Covid positive patients. [facility] does not take Covid positive patients. I will continue to call inpatient facilities for placement. Speech Therapist Early Intervention: Gladys Velasco DCPIA - Discharge Planning Initial Assessment Updated by [id number]: Gladys Velasco on 05/03/20 1:12 pm * Is the patient Alert and Oriented? No * Preadmission Environment Home with Family * ADLs Independent Last DP export: 05/19/20 2:32 p Patient Name: MELISSA DICKENS Page [id number] at 1350 All edits/amendments must be made on the electronic document DICTATION DATE: 05/20/20 1350 PRESIDENT & FOUNDER: HOLLEY 05/20/20 1350 RPT#: [id number] DC DATE: STATUS: ADM IN [facility] [address] [place] [address] END OF REPORT
[2020-05-20 15:53] VITALS: BP 133/77
--- NOTE | 2020-05-20 16:20 | NUR ---
ALERT AND ORIENTED X4. SITTING UP IN BED WATCHING TV. NO SIGNS OF DISTRESS. DENIES ANY NEEDS. CONTINUE PLAN OF CARE AND SAFETY PRECAUTIONS.
[2020-05-20 18:29] VITALS: BP 108/66
[2020-05-20 23:05] VITALS: BP 142/85
--- NOTE | 2020-05-21 01:15 | NUR ---
RESTING WITH EYES CLOSED, RESPERATIONS EVEN, NO S/S DISTRESS NOTED.
--- NOTE | 2020-05-21 04:04 | NUR ---
I have reviewed this patient and I concur with the Shift Assessment completed by the Licensed Practical Nurse today this shift.
[2020-05-21 07:16] LABS: ALBUMIN 2.9 g/dL (3.4-5.0); BILIRUBIN - TOTAL 0.2 mg/dL (0.2-1.3); CALCIUM 8.8 mg/dL (8.5-10.1); CARBON DIOXIDE 26.5 mmol/L (21.0-32.0); CREATININE - SERUM 0.9 mg/dL (0.6-1.3); POTASSIUM - SERUM 3.5 mmol/L (3.5-5.1); PROTEIN - SERUM 7.2 g/dL (6.4-8.2)
--- NOTE | 2020-05-21 07:20 | NUR ---
RECIEVE REPORT. ALERT AND ORIENTED X4. SITTING UP IN BED WATCHING TV. DENIES ANY NEEDS. CONTINUE PLAN OF CARE AND SAFETY PRECUATIONS.
[2020-05-21 07:42] LABS: BASOPHILS 0.1 % (0-2); EOSINOPHILS 0 % (0-7); HEMATOCRIT 38.4 % (36.0-48.0); HEMOGLOBIN 13.5 g/dL (12-16); IMMATURE GRANULOCYTES 0.4 % (0-5); LYMPHOCYTE ABS# 1.86 10x3/uL (1.18-3.74); LYMPHOCYTES 25.4 % (15-50); MCH 28.8 pg (26.0-34.0); MCHC 35.2 g/dL (31.0-37.0); MCV 82.1 fL (80.0-100.0); MONOCYTES 9.2 % (2-11); NEUTROPHIL ABS# 4.74 10x3/uL (1.56-6.13); NEUTROPHILS 64.9 % (40-80); PLATELET COUNT 161 10x3/uL (130-400); RBC 4.68 10x6/uL (4.00-5.40); RDW 14.5 % (11.5-14.5); WBC 7.3 10x3/uL (4.8-10.8)
[2020-05-21 08:00] VITALS: BP 125/70
--- NOTE | 2020-05-21 12:45 | NUR ---
Nutrition Reassessment/Follow-up: Good/fair PO intake. Awaiting placement. Diet: Regular, Ensure TID PO intake: 75% avg x 6 meals (05/19-05/20) No new wt; last wt: 130# (04/29) Labs noted: Alb 2.9 Meds noted: Protonix, Senokot, Decadron, zinc sulfate, vit B1, vit C, vit D, electrolyte protocol -Nutrition needs unchanged; no new wt available. -Encourage PO intake and honor food preferences. -Need new wt. -RD will follow up within 7 days if pt still admitted.
[2020-05-21 16:25] VITALS: BP 132/79
[2020-05-21 20:00] VITALS: BP 123/74
--- NOTE | 2020-05-22 01:29 | NUR ---
RESTING WITH EYES CLOSED, RESPERATIONS NON LABORED, NO S/S DISTRESS NOTED. BED LOW, CL IN REACH.
[2020-05-22 04:00] VITALS: BP 139/84
--- NOTE | 2020-05-22 04:31 | NUR ---
I have reviewed this patient and I concur with the Shift Assessment completed by the Licensed Practical Nurse today this shift.
[2020-05-22 05:56] LABS: ALBUMIN 3.1 g/dL (3.4-5.0); ANION GAP 13.2 mmol/L (8-16); BILIRUBIN - TOTAL 0.14 mg/dL (0.2-1.3); CALCIUM 8.7 mg/dL (8.5-10.1); CARBON DIOXIDE 24.7 mmol/L (21.0-32.0); CREATININE - SERUM 0.9 mg/dL (0.6-1.3); MAGNESIUM - SERUM 2.2 mg/dL (1.8-2.4); POTASSIUM - SERUM 3.9 mmol/L (3.5-5.1); PROTEIN - SERUM 7.7 g/dL (6.4-8.2)
[2020-05-22 06:08] LABS: HEMATOCRIT 41.7 % (36.0-48.0); HEMOGLOBIN 14.6 g/dL (12-16); LYMPHOCYTE ABS# 1.51 10x3/uL (1.18-3.74); MCH 28.9 pg (26.0-34.0); MCV 82.6 fL (80.0-100.0); NEUTROPHIL ABS# 5.36 10x3/uL (1.56-6.13); PLATELET COUNT 168 10x3/uL (130-400); RBC 5.05 10x6/uL (4.00-5.40); RDW 14.8 % (11.5-14.5); WBC 7.6 10x3/uL (4.8-10.8)
--- NOTE | 2020-05-22 08:34 | PN ---
PATIENT:MELISSA DICKENS MEDICAL RECORD: [id number] LOCATION:D[facility].212 ADMISSION DATE: 04/27/20 PROGRESS NOTE DATE OF SERVICE: 05/21/2020 SUBJECTIVE: The patient's case was discussed with staff. OBJECTIVE: The patient is partially oriented. She has some delusional thought content, but it is significantly better than it was a week ago. Furthermore, the medications that she has been placed on seemed to have helped significantly. She has no evidence of acute or direct dangerousness to herself or others. ASSESSMENT: Schizophrenia. PLAN: The patient may be discharged to home with outpatient psychiatric followup. Her mother has apparently cared for her for a long time and she has an established relationship with [facility]. TRANSINT:[id number] Voice Confirmation ID: [id number] DOCUMENT ID: [id number] ARACELY KEANE MD at 0834 CC: [id number] DICTATION DATE: 05/21/20 1554 DUPLICATOR PUNCH SET UP OPERATOR: 05/21/20 2305 ADM IN [address] [place] [address]
[2020-05-22 09:09] VITALS: BP 144/88
[2020-05-22 09:55] LABS: ANISOCYTOSIS OCC; EOSINOPHILS 1 % (0-7); LYMPHOCYTES 19 % (15-50); MONOCYTES 4 % (2-11); NEUTROPHILS 76 % (40-80); PLATELET ESTIMATE NORMAL
[2020-05-22] MEDS ORDERED: DECADRON4 MG PO (10:26)
[2020-05-22 11:45] VITALS: BP 122/71
--- NOTE | 2020-05-22 12:51 | NUR ---
PT BEING DISCHARGED HOME WITH MOTHER, DISCHARGE PAPERS HAVE BEEN DISCUSSED WITH PT, ATTEMPTED TO CONTACT MOTHER TO PICK PT UP, LEFT MESSAGE ON CELL PHONE TO CALL US BACK R/T HER DAUGHTER. WILL GO OVER DISCHARGE WITH MOTHER ON RETURNED PHONE CALL. PT INSTRUCTED TO GET HER BELONGINGS TOGETHER IN HER BAG, PT AKNOWLEDGED THAT SHE UNDERSTOOD DISCHARGE INSTRUCTIONS AT THIS TIME AND PUT HER D/C PAPERWORK IN HER BELONGINGS BAG TO TAKE HOME. INSTRUCTED TO ELEMENTARY EDUCATION TEACHER NEW MEDICATIONS AT HER STATED PHARMACY, PT VOICED UNDERSTANDING AT THIS TIME.
--- NOTE | 2020-05-22 13:51 | NUR ---
ABLE TO REACH MOTHER TO PICK PT UP, MOTHER STATED SHE WOULD BE OUT TO PICK PT UP AT ED ENTERANCE.
--- NOTE | 2020-05-22 23:08 | MORECARE ---
CASE MANAGEMENT DISCHARGE SUMMARY PATIENT: MELISSA DICKENS UNIT: [id number] ADM DATE: 04/27/20 AGE: 50 : 74 SEX: F ROOM/BED: D.6456 AUTHOR: ASHANTI,DOC PHYSICIAN: REFERRING PHYSICIAN: JOY SHEN MD DATE OF SERVICE: 05/22/20 Discharge Plan Patient Name: MELISSA DICKENS Facility: [facility]:[place] : 1970 Planned Disposition: Psych facility Anticipated Discharge Date: Discharge Date: 05/22/2020 Expected LOS: Initial Reviewer: [email or web address] Initial Review Date: 05/03/2020 Generated: 05/23/20 12:08 am Comments DCP- Discharge Planning Updated by [id number]: Alyse Tejeda on 05/22/20 10:[address] Psych stated per note that patient could discharge back to mother's home and f/u outpatient. CM will follow for any d/c needs. DCP- Discharge Planning Updated by [id number]: Alyse Tejeda on 05/22/20 10:[address] Late Entry 05/21/20 CM called [facility] Home in am around 10:00 and back again around [address] Vazquez was coming to see patient. DCP- Discharge Planning Updated by [id number]: Gladys Velasco on 05/20/20 12:[address] Received a call from Johana that patient is too high for their unit. Johana states they have had her there before and are unable to meet her needs at this time. CM will continue to follow and assist with discharge planning/needs. [facility] - NO [facility] - NO [facility] - NO [facility] - NO [facility] - NO [facility] - No beds available [facility] - Pending - Need negative PCR -NO [facility] - Pending DCP- Discharge Planning Updated by [id number]: Gladys Velasco on 05/19/20 2:[address] Wendy called from [facility] in [place]. Her physician inspection machine tender has declined admission stating she does not fit with current group of patient's because of aggressive behavior and new addition of Ativan. I informed Wendy that she is not currently exhibiting any aggressive behavior, but she states they are declining. [facility] in [place] - Denied admission. DCP- Discharge Planning Updated by [id number]: Gladys Krista on 05/19/20 2:[address] Wendy from [facility] in [place] called with questions on possible admission. Wendy states she will call her physician and call me back with an answer on admission. CM will continue to follow and assist with DC planning/needs. [facility] in [place] - [phone] DCP- Discharge Planning Updated by [id number]: Gladys Krista on 05/19/20 11:[address] [facility] any outside referrals at [facility] time. States they have no beds available. I called [facility] and spoke with Nicole and referral faxed to [phone]. I also called [facility] in [place] and spoke with Monika and faxed clinical to [phone]. DCP- Discharge Planning Updated by [id number]: Gladys Velasco on 05/19/20 10:[address] Arnoldo Barrera has informed he that [facility] has declined admission stating that patient does not meet their inpatient admission criteria. I spoke with Ruby Campos and she has called [facility] to get more information on patient from their last admission. CM called patient's mother and spoke with her. She states she lives with her and her 6 year old. States her daughter comes daily to give her a shot for her MS. States she see's a doctor in [place] and is unsure of doctors name. States she has been at [facility] and a psychiatric hospital in [place], unsure of which one. States she is ok with her returning home when/if she no longer needs inpatient psychiatric care. For now, I will continue to follow and assist with inpatient placement. DCP- Discharge Planning Updated by [id number]: Gladys Velasco on 05/17/20 1:[address] CM called [facility] and they are not taking patient's at this time. DCP- Discharge Planning Updated by [id number]: Gladys Velasco on 05/17/20 1:[address] CM received a call from Kimmy at [facility] in [place] that they could not accept the patient because she "would not be a good fit" with the other clientele at this time. I called [facility] and faxed clinical and called [facility] and spoke with Zoe and fortunato clinical. Zoe states she will need a current negative PCR to be accepted to their unit. I called patient's mother and received an answering machine. I called patient and informed her that [facility] was not accepting her, but I had reached out to [facility] and [facility] at this time. I informed patient's nurse, Quiana, that I would need a repeat PCR Covid test for placement. I spoke with Zonia at [facility] and referral faxed. CM will continue to follow and assist with DC planning/needs. DCP- Discharge Planning Updated by [id number]: Gladys Velasco on 05/17/20 8:[address] CM called [facility] and spoke with Kimmy. Kimmy states to resend all clinical with updated lab. CM sent clinical with updated labs. CM will continue to follow and assist with discharge planning/needs. DCP- Discharge Planning Updated by [id number]: Alyse Tejeda on 05/16/20 1:[address] CM called [facility] to check on patient status on admit for Wednesday. CM spoke with Kimmy and she spoke with Domo. CM was told that they would not accept any updates until tomorrow. They would not give CM any indication on whether they would have a bed or not tomorrow. Will need to send a new referral packet in am. DCP- Discharge Planning Updated by [id number]: Gladys Velasco on 05/14/20 1:[address] Domo from [facility] at [facility] states they can clinically accept on 05/17 or later if bed available. He is unable to say if a bed will still be available on the . DCP- Discharge Planning Updated by [id number]: Gladys Velasco on 05/14/20 11:[address] Alpa from [facility] declined admission. States we do not take positive Covid patients. CM has already sent a referral to [facility] as well in [place]. DCP- Discharge Planning Updated by [id number]: Gladys Velasco on 05/14/20 10:[address] CM called [facility] to check on referral and they state they did not receive the fax. Cm faxed referral again today. CM called [facility] in [facility] and faxed referral. DCP- Discharge Planning Updated by [id number]: Alyse Nikhil on 05/13/20 11:[address] CM sent referral to [facility] and later received a call back that they had denied her because she exceeds their capabilities. CM called and sent referral pack to [facility] awaiting determination. DCP- Discharge Planning Updated by [id number]: Alyse Nikhil on 05/13/20 11:[address] Psych re-eval is still stating patient is needing psych placement CM will send out referral packets out today for placement. DCP- Discharge Planning Updated by [id number]: Alyse Tejeda on 05/13/20 11:[address] LATE ENTRY 05/11/20 CM called [facility] to check status of bed availability. CM was told to send over new packet and they would call back with determination later today. CM received a call back @ [phone] that patient was denied. The nurse stated that the packet was reviewed by the ophthalmic medical technician and refrigeration unit repairer and they denied acceptance. CM wasn't given any explanation as to why she was denied. CM spoke with Georgia HAWTHORNE about getting a psych re-eval to see if patient is still requiring psych placement since the last note was on 04/30/20. CM will continue to follow and assist with discharge planning / needs. DCP- Discharge Planning Updated by [id number]: Gladys Velasco on 05/08/20 12:[address] CM called [facility] and spoke with Glenny. Glenny states they will not have an opening until Wednesday and to send a whole new referral on Wednesday. Possible discharge to [facility] on Wednesday. DCP- Discharge Planning Updated by [id number]: Claudiabianka Bustamante on 05/06/20 1:[address] Patient Name: MELISSA DICKENS Admission Status: ER Accout number: [id number] Admission Date: 04-27-2020 : 1970 Admission Diagnosis:COVID-19 Attending: DAMION SHEN Current LOS: 9 Anticipated DC Date: Planned Disposition: Psych facility Primary Insurance: [place]ID [place] Discharge Planning Comments: CM SPOKE WITH [facility] IN [place] AND THEY ARE NOT ACCEPTING ANY COVID POSITIVE PATIENTS. I AM SENDING UPDATED CLINICALS TO [facility]. THIS PATIENT WILL NOT BE ELIGABLE TO BE ACCEPTED TO [facility] UNTIL COVID IS PAST 14 DAYS. IT WILL BE 14 DAYS 05/11/20. I WILL CONTINUE TO SEND UPDATES AND CHECK OTHER FACILITIES. CM TO FOLLOW AND ASSIST NEEDED. Landscape Management Technician: Claudia Bustamante DCP- Discharge Planning Updated by [id number]: Gladys Velasco on 05/03/20 1:[address] Estelle at [facility] states they cannot accept Covid positive patient's until day 14. CM will continue to call dual diagnosis inpatient psychiatric facilities. DCP- Discharge Planning Updated by [id number]: Gladys Velasco on 05/03/20 12:[address] Patient Name: MELISSA DICKENS Admission Status: ER Accout number: [id number] Admission Date: 04-27-2020 : 1970 Admission Diagnosis:COVID-19 Attending: DAMION SHEN Current LOS: 6 Anticipated DC Date: Planned Disposition: Psych facility Primary Insurance: [place] Discharge Planning Comments: Cm called patient's room per COVID isolation protocol. Patient states she had been living at home with her mother. I informed her that her psychologist here recommends she goes to an inpatient psychiatric facility and she is agreeable to this. I have called [facility] and spoke with Alpa, she states no beds availability. [facility] states OK to send a referral, I faxed referral to Estelle at [facility]. [facility] not [facility] positive patients. [facility] does not take Covid positive patients. I will continue to call inpatient facilities for placement. Landscape Management Technician: Gladys Velasco DCPIA - Discharge Planning Initial Assessment Updated by [id number]: Gladys Velasco on 05/03/20 1:12 pm * Is the patient Alert and Oriented? No * Preadmission Environment Home with Family * ADLs Independent Last DP export: 05/20/20 12:50 pm Patient Name: MELISSA DICKENS Page 41102 at 2308 All edits/amendments must be made on the electronic document DICTATION DATE: 05/22/202307 CANE FLUME WATCHMAN: HOLLEY 05/22/202307 RPT#: [id number] DC DATE:05/22/20 STATUS: DIS IN [facility] [address] [place] [address] END OF REPORT
== END 2020-05-22 14:30 | disposition home or self-care (01) | DRG 177 ==
LOC: D.ER 16:42 → D.EDHOLD 21:31 → D.M2 21:31
PROVIDERS: Emergency Medicine; Family Medicine; ADMIT Emergency Medicine; ATTEND Emergency Medicine
DX: U07.1 COVID-19 (principal); G93.41 Metabolic encephalopathy; F32.3 Major depressive disorder, single episode, severe with psychotic features; F41.8 Other specified anxiety disorders; G35 Multiple sclerosis

== ENCOUNTER 2020-06-27 23:36 | Emergency (ER) | payer MEDICAID ==
[~2020-06-27] VITALS: Ht 167.6 cm; Wt 63.6 kg
[~2020-06-27 23:36] MED LIST changes: +COPAXONE INJ20 MG/ML SQ; +DECADRON4 MG PO; +HALDOL5 MG PO; +ZOLOFT50 MG PO
[2020-06-27 23:38] VITALS: Ht 167.6 cm; Wt 63.6 kg
[2020-06-27] MEDS ORDERED: DILANTIN100 MG PO (23:46)
[2020-06-27 23:58] LABS: HEMOGLOBIN 13.7 g/dL (12-16); LYMPHOCYTES 31.1 % (15-50); MCHC 34.3 g/dL (31.0-37.0); MCV 84.7 fL (80.0-100.0); MEAN PLATELET VOLUME 12.8 fL (7.4-10.4); RBC 4.72 10x6/uL (4.00-5.40); WBC 4.7 10x3/uL (4.8-10.8)
[2020-06-27 23:59] LABS: PLATELET COUNT 130 10x3/uL (130-400)
[2020-06-28 00:02] LABS: ANION GAP 13.9 mmol/L (8-16); CALCIUM 8.5 mg/dL (8.5-10.1); CARBON DIOXIDE 25.5 mmol/L (21.0-32.0); CREATININE - SERUM 0.9 mg/dL (0.6-1.3); POTASSIUM - SERUM 3.4 mmol/L (3.5-5.1)
[2020-06-28 00:10] LABS: ALBUMIN 3.4 g/dL (3.4-5.0); BILIRUBIN - TOTAL 0.18 mg/dL (0.2-1.3); MAGNESIUM - SERUM 2.1 mg/dL (1.8-2.4); PHENYTOIN (DILANTIN) 27.4 ug/mL (10.0-20.0); PROTEIN - SERUM 7.6 g/dL (6.4-8.2)
[2020-06-28 00:46] LABS: HCG URINE NEGATIVE (NEGATIVE)
[2020-06-28 00:49] LABS: UDS - AMPHET NEGATIVE QUAL (NEGATIVE); UDS - BARB NEGATIVE QUAL (NEGATIVE); UDS - BENZO POSITIVE QUAL (NEGATIVE); UDS - COCAINE NEGATIVE QUAL (NEGATIVE); UDS - OPIATE NEGATIVE QUAL (NEGATIVE); UDS - PCP NEGATIVE QUAL (NEGATIVE); UDS - THC NEGATIVE QUAL (NEGATIVE)
[2020-06-28 00:50] LABS: BILIRUBIN NEGATIVE (NEGATIVE); KETONE NEGATIVE (NEGATIVE); NITRITE NEGATIVE (NEGATIVE); UROBILINOGEN NORMAL mg/dL (< 2)
[2020-06-28 00:58] LABS: BACTERIA FEW HPF (NONE SEEN); SQUAMOUS EPITHELIAL 0-5 HPF (0-4); WHITE CELLS - URINE 0-5 HPF (0-4)
[2020-06-28 05:21] LABS: SARS-CoV-2 ANTIGEN NEGATIVE- SARS-COV-2 (NEGATIVE)
[2020-06-28 07:58] VITALS: BP 141/91
== END 2020-06-28 09:17 ==
LOC: D.ER 23:36
PROVIDERS: Family Medicine
DX: F23 Brief psychotic disorder (principal); I10 Essential (primary) hypertension; F41.9 Anxiety disorder, unspecified; G35 Multiple sclerosis

== ENCOUNTER 2020-07-16 22:00 | Emergency (ER) | payer MEDICAID ==
[~2020-07-16] VITALS: Ht 167.6 cm; Wt 50.0 kg
[2020-07-16 22:06] VITALS: Ht 167.6 cm; Wt 50.0 kg
[2020-07-16 22:44] LABS: BILIRUBIN NEGATIVE (NEGATIVE); KETONE NEGATIVE (NEGATIVE); NITRITE NEGATIVE (NEGATIVE); UROBILINOGEN NORMAL mg/dL (< 2)
[2020-07-16 22:45] LABS: BACTERIA MODERATE HPF (NONE SEEN); WHITE CELLS - URINE 0-5 HPF (0-4)
[2020-07-16 22:49] LABS: UDS - AMPHET NEGATIVE QUAL (NEGATIVE); UDS - BARB NEGATIVE QUAL (NEGATIVE); UDS - BENZO NEGATIVE QUAL (NEGATIVE); UDS - COCAINE NEGATIVE QUAL (NEGATIVE); UDS - OPIATE NEGATIVE QUAL (NEGATIVE); UDS - PCP NEGATIVE QUAL (NEGATIVE); UDS - THC NEGATIVE QUAL (NEGATIVE)
[2020-07-16 22:57] LABS: BASOPHILS 0.1 % (0-2); EOSINOPHILS 0 % (0-7); HEMATOCRIT 42.5 % (36.0-48.0); HEMOGLOBIN 14.6 g/dL (12-16); LYMPHOCYTES 6.3 % (15-50); MCH 29.4 pg (26.0-34.0); MCHC 34.4 g/dL (31.0-37.0); MCV 85.7 fL (80.0-100.0); MEAN PLATELET VOLUME 13.4 fL (7.4-10.4); MONOCYTES 6.9 % (2-11); NEUTROPHIL ABS# 14.92 10x3/uL (1.56-6.13); NEUTROPHILS 85.7 % (40-80); RBC 4.96 10x6/uL (4.00-5.40); RDW 14.6 % (11.5-14.5); WBC 17.4 10x3/uL (4.8-10.8)
[2020-07-16 22:58] LABS: PLATELET COUNT 193 10x3/uL (130-400)
[2020-07-16 23:12] LABS: ANION GAP 27.7 mmol/L (8-16); CALCIUM 8.8 mg/dL (8.5-10.1); CARBON DIOXIDE 13.7 mmol/L (21.0-32.0); CREATININE - SERUM 1.3 mg/dL (0.6-1.3); POTASSIUM - SERUM 3.4 mmol/L (3.5-5.1)
[2020-07-16 23:19] LABS: ALBUMIN 3.5 g/dL (3.4-5.0); BILIRUBIN - TOTAL 0.11 mg/dL (0.2-1.3); PROTEIN - SERUM 7.8 g/dL (6.4-8.2)
[2020-07-17 00:21] VITALS: BP 134/81
== END 2020-07-17 00:21 | disposition home or self-care (01) ==
LOC: D.ER 22:00
PROVIDERS: Family Medicine
DX: R56.9 Unspecified convulsions (principal); I10 Essential (primary) hypertension; G35 Multiple sclerosis

== ENCOUNTER 2020-08-03 15:02 | Emergency (ER) | payer MEDICAID ==
[~2020-08-03] VITALS: Ht 167.6 cm; Wt 55.0 kg
[2020-08-03 15:07] VITALS: Ht 167.6 cm; Wt 55.0 kg
[2020-08-03 16:09] LABS: BASOPHILS 0.4 % (0-2); EOSINOPHILS 0 % (0-7); HEMATOCRIT 43.5 % (36.0-48.0); HEMOGLOBIN 15.2 g/dL (12-16); IMMATURE GRANULOCYTES 0.2 % (0-5); LYMPHOCYTE ABS# 1.31 10x3/uL (1.18-3.74); LYMPHOCYTES 25.9 % (15-50); MCH 29.2 pg (26.0-34.0); MCHC 34.9 g/dL (31.0-37.0); MCV 83.5 fL (80.0-100.0); MONOCYTES 6.7 % (2-11); NEUTROPHIL ABS# 3.38 10x3/uL (1.56-6.13); NEUTROPHILS 66.8 % (40-80); RBC 5.21 10x6/uL (4.00-5.40); RDW 14.2 % (11.5-14.5); WBC 5.1 10x3/uL (4.8-10.8)
[2020-08-03 16:10] LABS: PLATELET COUNT 124 10x3/uL (130-400)
[2020-08-03 16:28] LABS: APTT 27.7 SECONDS (22.8-39.4); INR 1.05 (0.85-1.17); PROTIME 12.7 SECONDS (11.6-15.0)
[2020-08-03 16:32] LABS: CALC OSMOLALITY 279 mosm/kg (275-300); CALCIUM 9.2 mg/dL (8.5-10.1); CARBON DIOXIDE 25.9 mmol/L (21.0-32.0); CHLORIDE - SERUM 104 mmol/L (98-107); CREATININE - SERUM 0.8 mg/dL (0.6-1.3); POTASSIUM - SERUM 3.3 mmol/L (3.5-5.1); SODIUM 141 mmol/L (136-145); UREA NITROGEN 9 mg/dL (7-18); eGFR NON AFRICAN AMERICAN 81 mL/min (90-120)
[2020-08-03 16:36] LABS: GLUCOSE 104 mg/dL (74-106)
[2020-08-03 16:50] LABS: ALBUMIN 3.4 g/dL (3.4-5.0); ALKALINE PHOSPHATASE 104 U/L (30-120); ALT (SGPT) 32 U/L (10-68); BILIRUBIN - TOTAL 0.17 mg/dL (0.2-1.3); CKMB 0.3 U/L (0.0-3.6); CREATINE KINASE 35 UL (21-215); MAGNESIUM - SERUM 2.1 mg/dL (1.8-2.4); PROTEIN - SERUM 7.9 g/dL (6.4-8.2); THYROID STIMULATING HORMONE 2.24 uIU/mL (0.36-3.74)
[2020-08-03 16:51] LABS: TROPONIN-I < 0.017 ng/mL (0.000-0.060)
[2020-08-03 17:23] LABS: NITRITE NEGATIVE (NEGATIVE)
[2020-08-03 17:24] LABS: BILIRUBIN NEGATIVE (NEGATIVE); KETONE NEGATIVE (NEGATIVE); UROBILINOGEN NORMAL mg/dL (< 2)
[2020-08-03 17:46] LABS: UDS - AMPHET NEGATIVE QUAL (NEGATIVE); UDS - BARB NEGATIVE QUAL (NEGATIVE); UDS - BENZO NEGATIVE QUAL (NEGATIVE); UDS - COCAINE NEGATIVE QUAL (NEGATIVE); UDS - OPIATE NEGATIVE QUAL (NEGATIVE); UDS - PCP NEGATIVE QUAL (NEGATIVE); UDS - THC NEGATIVE QUAL (NEGATIVE)
[2020-08-03 19:09] LABS: SARS-CoV-2 ANTIGEN NEGATIVE- SARS-COV-2 (NEGATIVE)
[2020-08-03] MEDS ORDERED: K-DUR20 MEQ PO (22:17)
[2020-08-03] MEDS ORDERED: FERROUS SULFAT325 MG PO (22:17)
[2020-08-04] MEDS ORDERED: COPAXONE INJ20 MG/ML SQ (02:11)
[2020-08-04 15:13] VITALS: BP 139/86
--- NOTE | 2020-08-05 08:26 | NUR ---
DR KEANE NOTIFIED OF PATIENT'S BEHAVIOR AND ASSESSMENT. PT IS NO RISK. PATIENT DENIES SUICIDAL IDEATION. STATES SHE HAS NEVER HAD ANY SUICIDAL THOUGHTS. RESOURCES GIVEN AND SHE VERBALIZES UNDERSTANDING.
== END 2020-08-05 12:48 | disposition home or self-care (01) ==
LOC: D.ER 15:02
PROVIDERS: Family Medicine
DX: F23 Brief psychotic disorder (principal); T42.0X5A Adverse effect of hydantoin derivatives, initial encounter; R41.82 Altered mental status, unspecified

== ENCOUNTER 2020-08-11 20:49 | Emergency (ER) | payer MEDICAID ==
[~2020-08-11] VITALS: Ht 167.6 cm; Wt 54.5 kg
[2020-08-11 20:59] VITALS: Ht 167.6 cm; Wt 54.5 kg
[2020-08-11 21:43] LABS: HCG SERUM NEGATIVE (NEGATIVE)
[2020-08-11 21:44] LABS: ANION GAP 11.8 mmol/L (8-16); CALCIUM 8.8 mg/dL (8.5-10.1); CARBON DIOXIDE 29.2 mmol/L (21.0-32.0); CREATININE - SERUM 0.9 mg/dL (0.6-1.3)
[2020-08-11 21:45] LABS: BILIRUBIN NEGATIVE (NEGATIVE); KETONE NEGATIVE (NEGATIVE); NITRITE NEGATIVE (NEGATIVE); UROBILINOGEN NORMAL mg/dL (< 2)
[2020-08-11 21:51] LABS: BASOPHILS 0.5 % (0-2); EOSINOPHILS 0.2 % (0-7); HEMATOCRIT 45.2 % (36.0-48.0); HEMOGLOBIN 15.6 g/dL (12-16); IMMATURE GRANULOCYTES 0.2 % (0-5); LYMPHOCYTE ABS# 1.17 10x3/uL (1.18-3.74); MCH 28.7 pg (26.0-34.0); MCHC 34.5 g/dL (31.0-37.0); MCV 83.2 fL (80.0-100.0); MONOCYTES 6.2 % (2-11); NEUTROPHIL ABS# 2.86 10x3/uL (1.56-6.13); NEUTROPHILS 65.9 % (40-80); PLATELET COUNT 177 10x3/uL (130-400); RBC 5.43 10x6/uL (4.00-5.40); RDW 14.3 % (11.5-14.5); WBC 4.3 10x3/uL (4.8-10.8)
[2020-08-11 21:53] LABS: ALBUMIN 3.6 g/dL (3.4-5.0); BILIRUBIN - TOTAL 0.11 mg/dL (0.2-1.3); PHENYTOIN (DILANTIN) 21.2 ug/mL (10.0-20.0); PROTEIN - SERUM 8.2 g/dL (6.4-8.2)
[2020-08-11 21:55] LABS: UDS - AMPHET NEGATIVE QUAL (NEGATIVE); UDS - BARB NEGATIVE QUAL (NEGATIVE); UDS - BENZO NEGATIVE QUAL (NEGATIVE); UDS - COCAINE NEGATIVE QUAL (NEGATIVE); UDS - OPIATE NEGATIVE QUAL (NEGATIVE); UDS - PCP NEGATIVE QUAL (NEGATIVE); UDS - THC NEGATIVE QUAL (NEGATIVE)
[2020-08-12 00:15] LABS: SARS-CoV-2 ANTIGEN NEGATIVE- SARS-COV-2 (NEGATIVE)
[2020-08-12 05:39] VITALS: BP 141/60
== END 2020-08-12 13:42 ==
LOC: D.ER 20:49
PROVIDERS: Student in an Organized Health Care Education/Training Program
DX: F29 Unspecified psychosis not due to a substance or known physiological condition (principal)

== ENCOUNTER 2020-08-24 01:21 | Emergency (ER) | payer MEDICAID ==
[~2020-08-24] VITALS: Ht 167.6 cm; Wt 54.4 kg
[2020-08-24 01:27] VITALS: Ht 167.6 cm; Wt 54.4 kg
[2020-08-24] MEDS ORDERED: RISPERDAL2 MG PO (01:33)
[2020-08-24 01:43] LABS: BILIRUBIN NEGATIVE (NEGATIVE); KETONE NEGATIVE (NEGATIVE); NITRITE NEGATIVE (NEGATIVE); UROBILINOGEN NORMAL mg/dL (< 2)
[2020-08-24 01:50] LABS: UDS - AMPHET NEGATIVE QUAL (NEGATIVE); UDS - BARB NEGATIVE QUAL (NEGATIVE); UDS - BENZO NEGATIVE QUAL (NEGATIVE); UDS - COCAINE NEGATIVE QUAL (NEGATIVE); UDS - OPIATE NEGATIVE QUAL (NEGATIVE); UDS - PCP NEGATIVE QUAL (NEGATIVE); UDS - THC NEGATIVE QUAL (NEGATIVE)
[2020-08-24 01:57] LABS: BASOPHILS 0.6 % (0-2); EOSINOPHILS 0 % (0-7); HEMATOCRIT 39.5 % (36.0-48.0); HEMOGLOBIN 13.4 g/dL (12-16); LYMPHOCYTES 27.8 % (15-50); MCH 28.9 pg (26.0-34.0); MCHC 33.8 g/dL (31.0-37.0); MCV 85.6 fL (80.0-100.0); MEAN PLATELET VOLUME 10.2 fL (7.4-10.4); NEUTROPHILS 59.6 % (40-80); PLATELET COUNT 159 10x3/uL (130-400); RBC 4.62 10x6/uL (4.00-5.40); RDW 15.1 % (11.5-14.5); WBC 5.6 10x3/uL (4.8-10.8)
[2020-08-24 02:07] LABS: CALC OSMOLALITY 277 mosm/kg (275-300); CALCIUM 8.4 mg/dL (8.5-10.1); CARBON DIOXIDE 28.1 mmol/L (21.0-32.0); CHLORIDE - SERUM 104 mmol/L (98-107); CREATININE - SERUM 0.7 mg/dL (0.6-1.3); GLUCOSE 89 mg/dL (74-106); POTASSIUM - SERUM 3.4 mmol/L (3.5-5.1); SODIUM 140 mmol/L (136-145); UREA NITROGEN 13 mg/dL (7-18); eGFR NON AFRICAN AMERICAN > 90 mL/min (90-120)
[2020-08-24 02:13] LABS: ALBUMIN 3.3 g/dL (3.4-5.0); ALKALINE PHOSPHATASE 84 U/L (30-120); ALT (SGPT) 65 U/L (10-68); BILIRUBIN - TOTAL 0.18 mg/dL (0.2-1.3); MAGNESIUM - SERUM 1.9 mg/dL (1.8-2.4); PHENYTOIN (DILANTIN) 11.7 ug/mL (10.0-20.0); PROTEIN - SERUM 7.2 g/dL (6.4-8.2)
--- NOTE | 2020-08-24 04:27 | NUR ---
DR. KEANE NOTIFIED AND REVIEWED PT'S BEHAVIOR AND ASSESSMENT RESULTS. PT IS A LOW RISK PER DR. KEANE. DR. KEANE STATED TO GIVE RESOURCES TO PT AT TIME OF DISCHARGE. NO FURTHER ORDERS AT THIS TIME RESOURCES REVIEWED WITH PT AND SHE VERBALIZED UNDERSTANDING.
[2020-08-24 08:35] VITALS: BP 148/80
== END 2020-08-24 08:37 ==
LOC: D.ER 01:21
PROVIDERS: Family Medicine
DX: F20.9 Schizophrenia, unspecified (principal); Z91.19 Patient's noncompliance with other medical treatment and regimen

== ENCOUNTER 2020-09-01 23:50 | Emergency (ER) | payer MEDICAID ==
[~2020-09-01 23:50] MED LIST changes: +RISPERDAL2 MG PO
[2020-09-02 00:01] VITALS: BP 152/89; Ht 167.6 cm
[2020-09-02 01:19] LABS: BASOPHILS 0.5 % (0-2); EOSINOPHILS 0 % (0-7); HEMATOCRIT 41.8 % (36.0-48.0); HEMOGLOBIN 13.8 g/dL (12-16); MCH 28.6 pg (26.0-34.0); MCHC 32.9 g/dL (31.0-37.0); MCV 86.8 fL (80.0-100.0); MEAN PLATELET VOLUME 10.2 fL (7.4-10.4); MONOCYTES 8.4 % (2-11); NEUTROPHILS 66.1 % (40-80); RBC 4.82 10x6/uL (4.00-5.40)
[2020-09-02 01:32] LABS: PLATELET COUNT 119 10x3/uL (130-400)
[2020-09-02 01:36] LABS: CALC OSMOLALITY 284 mosm/kg (275-300); CALCIUM 8.4 mg/dL (8.5-10.1); CARBON DIOXIDE 27.2 mmol/L (21.0-32.0); CHLORIDE - SERUM 107 mmol/L (98-107); CREATININE - SERUM 0.7 mg/dL (0.6-1.3); GLUCOSE 113 mg/dL (74-106); POTASSIUM - SERUM 4.1 mmol/L (3.5-5.1); SODIUM 143 mmol/L (136-145); UREA NITROGEN 11 mg/dL (7-18); eGFR NON AFRICAN AMERICAN > 90 mL/min (90-120)
[2020-09-02 01:41] LABS: ALBUMIN 3.4 g/dL (3.4-5.0); ALKALINE PHOSPHATASE 87 U/L (30-120); ALT (SGPT) 86 U/L (10-68); BILIRUBIN - TOTAL 0.18 mg/dL (0.2-1.3); PHENYTOIN (DILANTIN) 20.1 ug/mL (10.0-20.0); PROTEIN - SERUM 7.5 g/dL (6.4-8.2)
[2020-09-02 01:42] LABS: BILIRUBIN NEGATIVE (NEGATIVE); KETONE NEGATIVE mg/dL (< 1+); NITRITE NEGATIVE (NEGATIVE); PH 7.5 (5.0-8.0); UROBILINOGEN NORMAL mg/dL (< 2); WHITE CELLS - URINE <1 HPF (0-4)
[2020-09-02 01:48] LABS: UDS - AMPHET NEGATIVE QUAL (NEGATIVE); UDS - BARB NEGATIVE QUAL (NEGATIVE); UDS - BENZO NEGATIVE QUAL (NEGATIVE); UDS - COCAINE NEGATIVE QUAL (NEGATIVE); UDS - OPIATE NEGATIVE QUAL (NEGATIVE); UDS - PCP NEGATIVE QUAL (NEGATIVE); UDS - THC NEGATIVE QUAL (NEGATIVE)
== END 2020-09-02 03:28 | disposition home or self-care (01) ==
LOC: D.ER 23:50
PROVIDERS: Family Medicine
DX: F20.9 Schizophrenia, unspecified (principal); F22 Delusional disorders

== ENCOUNTER 2020-09-04 23:12 | Emergency (ER) | payer MEDICAID ==
[~2020-09-04] VITALS: Ht 167.6 cm; Wt 59.1 kg
[2020-09-04 23:21] VITALS: Ht 167.6 cm; Wt 59.1 kg
[2020-09-04 23:42] LABS: BACTERIA FEW HPF (<MOD); BILIRUBIN NEGATIVE (NEGATIVE); KETONE NEGATIVE mg/dL (< 1+); NITRITE NEGATIVE (NEGATIVE); SQUAMOUS EPITHELIAL 1 HPF (0-4); UROBILINOGEN NORMAL mg/dL (< 2); WHITE CELLS - URINE 1 HPF (0-4)
[2020-09-04 23:48] LABS: BASOPHILS 0.6 % (0-2); EOSINOPHILS 0 % (0-7); HEMATOCRIT 40.6 % (36.0-48.0); HEMOGLOBIN 13.6 g/dL (12-16); LYMPHOCYTES 23.5 % (15-50); MCH 29.2 pg (26.0-34.0); MCHC 33.5 g/dL (31.0-37.0); MCV 87.1 fL (80.0-100.0); MEAN PLATELET VOLUME 9.6 fL (7.4-10.4); MONOCYTES 7.3 % (2-11); NEUTROPHILS 68.6 % (40-80); PLATELET COUNT 128 10x3/uL (130-400); RBC 4.66 10x6/uL (4.00-5.40); RDW 16.3 % (11.5-14.5); WBC 4.9 10x3/uL (4.8-10.8)
[2020-09-04 23:50] LABS: UDS - AMPHET NEGATIVE QUAL (NEGATIVE); UDS - BARB NEGATIVE QUAL (NEGATIVE); UDS - BENZO NEGATIVE QUAL (NEGATIVE); UDS - COCAINE NEGATIVE QUAL (NEGATIVE); UDS - OPIATE NEGATIVE QUAL (NEGATIVE); UDS - PCP NEGATIVE QUAL (NEGATIVE); UDS - THC NEGATIVE QUAL (NEGATIVE)
[2020-09-05] LABS: CALC OSMOLALITY 283 mosm/kg (275-300); CALCIUM 8.6 mg/dL (8.5-10.1); CARBON DIOXIDE 28.9 mmol/L (21.0-32.0); CHLORIDE - SERUM 104 mmol/L (98-107); CREATININE - SERUM 0.7 mg/dL (0.6-1.3); GLUCOSE 103 mg/dL (74-106); POTASSIUM - SERUM 3.7 mmol/L (3.5-5.1); SODIUM 142 mmol/L (136-145); UREA NITROGEN 16 mg/dL (7-18); eGFR NON AFRICAN AMERICAN > 90 mL/min (90-120)
[2020-09-05 00:05] LABS: ALBUMIN 3.3 g/dL (3.4-5.0); ALKALINE PHOSPHATASE 84 U/L (30-120); ALT (SGPT) 71 U/L (10-68); BILIRUBIN - TOTAL 0.21 mg/dL (0.2-1.3); PROTEIN - SERUM 7.3 g/dL (6.4-8.2)
[2020-09-05 01:40] VITALS: BP 129/77
== END 2020-09-05 01:40 | disposition home or self-care (01) ==
LOC: D.ER 23:12
PROVIDERS: Family Medicine
DX: R52 Pain, unspecified (principal); F20.9 Schizophrenia, unspecified